=== PATIENT | male | born 1950 | race Caucasian/White ===

== ENCOUNTER 2019-09-06 05:36 | Day surgery (SDC) | payer OTHER, SELFPAY ==
[2019-09-01 14:30] VITALS: BMI 25.0
--- NOTE | 2019-09-01 14:50 | PC.NURSE ---
P t still taking plavix so surgery rescheduled to per Dr Marvin
[2019-09-06] VITALS (8 sets, daily range): BP systolic 87–131; BP diastolic 53–78; PULSE 56–80; RESP 18–26; TEMP 36.2–36.4; O2SAT 95–99
[2019-09-06] MEDS: sodium chloride 0.9% 1,000 ML 30 ML IV (06:34)
--- NOTE | 2019-09-06 06:52 | W.PM.OPSUD ---
Surgery/Procedure H&P Update DATE OF PROCEDURE: September 06, 2019 DATE H&P PERFORMED: 08/22/19 H&P UPDATE INFORMATION: I have reviewed H&P completed within last 30 days, I have examined patient prior to procedure and No changes to prior documentation PREOP DIAGNOSIS: Bilateral inguinal hernia PLANNED PROCEDURE: Operation Date: 09/06/19 07:00 Proposed Procedures p Laparoscopic poss open Inguinal Hernia Repair w/Mesh(Bilateral) - Simone Marvin MD
--- NOTE | 2019-09-06 07:07 | ANES.PREANE2 ---
Pre-Anesthetic Assessment Pre-Anesthetic Assessment: Height/Weight: Height 1.83 m Weight 83.915 kg Temp Pulse Resp BP Pulse Ox 97.3 F L 57 L 18 131/78 97 09/06/19 06:15 09/06/19 06:15 09/06/19 06:15 09/06/19 06:15 09/06/19 06:15 Preop Diagnosis: Bilateral inguinal hernia Proposed Procedure: Operation Date: 09/06/19 07:00 Proposed Procedures p Laparoscopic poss open Inguinal Hernia Repair w/Mesh(Bilateral) - Simone Marvin MD Was Beta Luis taken within 24 hours: N/A Last intake: Intake Last Liquid Date 09/05/19 Last Liquid Time 23:00 Last Solid Date 09/05/19 Last Solid Time 20:00 Social: Social History: Tobacco and No alcohol Exam: Pre-Anes Outpt Exam: alert, oriented x 3, clear to auscultation bilaterally and regular rate & rhythm Airway: Submandibular: WNL Cervical ROM: WNL MP: 2 Dentition: Full Pulmonary: Pulmonary: COPD CV/HEM: CV/HEM: HTN : : None reported Hepatic: Hepatic: None reported GI: GI: None reported Metabolic: Metabolic: None reported Musc/skel: Musc/skel: None reported Neuropsych: Neuropsych: None reported Anesthetic Plan: ASA status: 3 Anesthesia: General Risk of > 500 ml blood loss (7ml/kg in children): No Meds/Allergies Current Medications: Current Medications Generic Name Dose Route Start Last Admin Trade Name Freq PRN Reason Stop Dose Admin Sodium Chloride 1,000 mls @ 30 ml s/hr 09/06/19 06:00 09/06/19 06:34 Sodium Chloride 0.9% IV 09/07/19 05:59 30 mls/hr .Q24H SHELLY Administration PFSH Anesthesia PFSH: Medical History (Updated 08/22/19 @ 17:39 by Simone Marvin MD) Adjustment disorder with depressed mood Anxiety Bilateral inguinal hernia BPH (benign prostatic hyperplasia) Diverticulosis Hypercholesterolemia Hypertension OCD (obsessive compulsive disorder) (~2013) PTSD (post-traumatic stress disorder) Surgical History History of colonoscopy (~2013) diverticulosis Status post surgical removal of malignant neoplasm of skin Social History Smoking and tobacco status: current every day smoker cigarettes Second hand smoke exposure: No Alcohol intake: never Desire information about alcohol rehabilitation?: No Adopted: No Caregiver/support person: Yes Lives independently: Yes Household members: spouse Housing: House Marital status: service: Yes Current occupational status: retired Current occupational exposures/hazards: No Pets and animals: No History of recent travel: No Sexually active: No Current gender identity: Male Meron/Catholic: Rastafari Special meron needs: No Agree to transfusion: No Financial difficulty paying for basics: Decline to Answer Data Anesthesia Cardiac Studies: No Data to Display
--- NOTE | 2019-09-06 07:57 | SUR.OPER ---
0728 - Pt's Dalila notified of surgery start via her cell phone.
--- NOTE | 2019-09-06 08:44 | SUR.PHASEI ---
0843 PATIENT TO PACU AT THIS TIME. RR EVEN AND UNLABORED. PLACED ON SIMPLE MASK, SPO2 98%. INCISION TO ABDOMEN, CDI, SCROTAL SUPPORT IN PLACE.
--- NOTE | 2019-09-06 08:45 | PM.OP ---
Operative Report Date of procedure: September 06, 2019 Pre-op Diagnosis: Bilateral inguinal hernia Post-op Diagnosis: Bilateral direct inguinal hernia Procedure Done: Laparoscopic total extraperitoneal repair of bilateral inguinal hernia Pathology: none sent Surgeon: Simone Marvin Anesthesia: General Estimated blood loss (mL): 10 Condition: stable Disposition: PACU Procedure: The patient was taken to the operating room. After IV antibiotic was administered, the abdomen was prepped and draped in a sterile manner. Using a 15 blade, a 1.0 cm transverse incision was made infraumbilically on the right side. Subcutaneous tissue was divided using electrocautery and the anterior rectus sheath divided using an 11 blade. The rectus muscle was retracted laterally and the extraperitoneal space identified. A balloon dilator was placed to open the preperitoneal space. A 11 mm port was placed and 12 mm of pneumoperitoneum was created. A 10 mm 30? scope was introduced and the retrorectus space was opened using the camera up to the pubic symphysis and 5 mm ports were placed in the midline, one 2-fingerbreadths above the pubic symphysis and the other midway between these two ports under direct visualization. Blunt dissection was carried out to open up the tissue in the midline and to the pubic symphysis, which was identified. The dissection was then carried laterally where the iliopubic tract was identified. There was no femoral or obturator hernia noted. There was a large direct hernia which was reduced. The inferior epigastric artery was identified and dissection was carried posterior to it and laterally, the space was opened up to the level of the umbilicus superior to the anterior superior iliac spine. I then proceeded to dissect out the spermatic cord and the peritoneum was retracted posteriorly up to the iliac vein.. 16 x 10cm Surgimax 3D mesh was rolled and introduced through the 10 mm port and then rolled laterally and apposed well against the abdominal wall to cover the myopectineal orifice completely. I then directed my attention to the left side. The dissection was carried laterally where the iliopubic tract was identified. There was no femoral or obturator hernia noted. There was a small direct hernia which was reduced. The inferior epigastric artery was identified and dissection was carried posterior to it and laterally, the space was opened up to the level of the umbilicus superior to the anterior superior iliac spine. I then proceeded to dissect out the spermatic cord and the peritoneum was retracted posteriorly up to the iliac vein.. 16 x 10cm Surgimax 3D mesh was rolled and introduced through the 10 mm port and then rolled laterally and apposed well against the abdominal wall to cover the myopectineal orifice completely. 10 Cc of 0.5% Marcaine was infiltrated into the preperitoneal space. The extraperitoneal space was desufflated under direct visualization to ensure no slippage of hernial sac under the mesh. All ports were removed, the anterior rectus fascia at the infraumbilical port closed using figure of eight 0 Vicryl sutures, subcutaneous tissue approximated using 3-0 Vicryl sutures and skin at all three port sites were closed using running subcuticular 4-0 Monocryl sutures and Dermabond. 10 mL of 0.5% Marcaine was infiltrated at the port sites. The patient was stable throughout the procedure.
--- NOTE | 2019-09-06 09:06 | SUR.PHASEI ---
0902 PATIENT TO OPS AT THIS TIME. NO DISTRESS. DENIES PAIN. TOLERATING ICE CHIPS. INCISION TO ABDOMEN, CDI. SCROTAL SUPPORT IN PLACE.
== END 2019-09-06 09:53 | disposition home or self-care (01) ==
PROVIDERS: Family Provider Family Medicine Adult Medicine; PCP Emergency Medicine Emergency Medical Services; Visit Provider Surgery
PROC: (CPT 49650; principal; 2019-09-06 07:00)
DX: K40.20 Bilateral inguinal hernia, without obstruction or gangrene, not specified as recurrent (principal); Z79.82 Long term (current) use of aspirin; N40.0 Benign prostatic hyperplasia without lower urinary tract symptoms; I10 Essential (primary) hypertension; Z82.49 Family history of ischemic heart disease and other diseases of the circulatory system; Z83.3 Family history of diabetes mellitus; F17.210 Nicotine dependence, cigarettes, uncomplicated; J44.9 Chronic obstructive pulmonary disease, unspecified
CPT/HCPCS: 49650; 12345; C1781; J0690; J1885; J2001; J2370; J2704; J2710; J3010; J3490; J7030

== ENCOUNTER 2020-02-29 12:30 | Outpatient (CLI) | payer OTHER, SELFPAY ==
--- NOTE | 2020-02-29 13:07 | CT_ITS ---
WS: [id number] CTA THORACIC TECHNIQUE: Contrast enhanced CTA of the thoracic aorta with coronal and sagittal reformatted images a nd maximum intensity projection (MIP) images. CLINICAL INFORMATION: FOLLOW UP THORACIC AORTIC ANEURYSM COMPARISON: None. DLP: 1515.[address] scans at [facility] use at least one of these dose optimization techniques: automat ed exposure control; mA and/or kV adjustment per patient size (includes targeted exams where dose is matched to clinical indication); or iterative reconstruction. FINDINGS: Normal caliber thoracic aorta. Mild aortic arch calcification. Moderate atheromatous disease involvin g the aortic arch. Normal caliber descending thoracic aorta. Normal thyroid gland. No mediastinal or hilar lymphadenopathy. No axillary lymphadenopathy. Normal ca liber descending thoracic aorta. Coronary calcification. Proximal main pulmonary arteries are normal. Lungs are well aerated. No acute pulmonary infiltrates. No suspicious pulmonary parenchymal opacitie s. Cholelithiasis. Adrenal glands are normal. Small right renal cyst. Hypertrophic changes excluded. CT/CT angio chest 67023 IMPRESSION: 1. Normal caliber thoracic aorta. No evidence of thoracic aortic aneurysm. 2. Moderate atheromatous disease involving the thoracic aortic arch. Normal de scending caliber thoracic aorta. 3. No mediastinal or hilar lymphadenopathy. 4. Cholelithiasis.
[2020-02-29 13:36] LABS: Blood Urea Nitrogen 17 mg/dL (8-23); Glomerular Filtration Rate 83.7 mL/min (90-130)
[2020-02-29] MEDS: iohexol 350 mg/mL 100 mL Btl IV (13:50)
== END 2020-02-29 12:31 | disposition home or self-care (01) ==
LOC: RADWPI 12:59
PROVIDERS: Family Provider Family Medicine Adult Medicine; PCP Emergency Medicine Emergency Medical Services; Visit Provider Emergency Medicine Emergency Medical Services
DX: I71.2 Thoracic aortic aneurysm, without rupture (principal); K80.20 Calculus of gallbladder without cholecystitis without obstruction
CPT/HCPCS: 71275; 82565; 84520; Q9967

== ENCOUNTER 2020-03-18 09:55 | Outpatient (CLI) | payer OTHER, SELFPAY ==
--- NOTE | 2020-03-18 10:01 | USCV_ITS ---
Lalo Marr Age: 69 Gender: M : 1950 Exam Date: 03/18/2020 09:56 Ordering Phys: Rd Bianchi MD Technologist: Isabel Avelar [place] [facility] [place]: AAA HISTORY: Diameter (cm) AP x Transverse x Length Velocity (cm/s) Waveform Prox Aorta: 2.33 x 2.64 x 94.70 Mid Aorta: 2.02 x 2.33 x 91.10 Distal Aorta: 4.56 x 4.77 x 81.60 Right Iliac Prox: 1.05 x 1.16 x 180.60 Left Iliac Prox: 0.99 x 0.99 x 127.55 Stent Prox Landing x x Aneurysmal Sac Max x x Lt Lat Sac Dim Rt Lat Sac Dim Stent Dist Landing x x Right Iliac Stent x x Left Iliac Stent x x Right Renal Art Left Renal Art FINDINGS: Mild to moderate heterogeneous plaques in the abdominal aorta. Fusiform aneurysm of the infrarenal aorta measuring 4.56 x 4.77 cm CONCLUSIONS 1. Fusiform aneurysm of the infrarenal aorta measuring 4.56 x 4.77 cm. 2. Mild to moderate diffuse plaques in the abdominal aorta. 3. Normal dimensions of the proximal common iliac arteries bilaterally No previous studies are available for comparison Dr Kelvin Lora MD [facility] (Electronically Signed) Final Date: 18 March 2020 20:06 S
== END 2020-03-18 09:56 | disposition home or self-care (01) ==
PROVIDERS: PCP Emergency Medicine Emergency Medical Services; Visit Provider Internal Medicine Clinical Cardiac Electrophysiology
DX: I71.4 Abdominal aortic aneurysm, without rupture (principal)
CPT/HCPCS: 93978

== ENCOUNTER 2020-05-31 12:31 | Outpatient (CLI) | payer OTHER, SELFPAY ==
--- NOTE | 2020-05-31 13:00 | CT_ITS ---
WS: [id number] CT scan of the abdominal aorta. Additional two-dimensional coronal and sagittal reconstruction was pe rformed. MIP images were also performed. 05/31/2020 Clinical Data: I71.4 - Abdominal aortic aneurysm, without rupture Comparison: CTA of the abdominal aorta DLP: 971.[address] scans at [facility] use at least one of these dose optimization techniques: automat ed exposure control; mA and/or kV adjustment per patient size (includes targeted exams where dose is matched to clinical indication); or iterative reconstruction. Findings: Abdominal aorta: The AP diameter of the abdominal aortic aneurysm is now 4.0 cm which is larger than the measurements 3 years ago. The transverse diameter is 4.0 cm and its length is 7.3 cm There is mural thrombosis in the abdominal aortic aneurysm and there is no contrast extravasation. The renal arteries, celiac maría elena ry, SMA and AMANDA are patent. The common iliac arteries show atheromatous sclerotic change. The branche s of the common iliac arteries are also patent. Abdomen and pelvic findings: The lower lungs show no nodules, masses or effusions. The liver, spleen, adrenal glands and pancreas are normal. There is a gallstone within the gallbladder. The kidneys show bilateral renal cortical cy sts with good contrast function. No renal masses, hydronephrosis or calculi are seen. No abscess, ritesh nopathy, ascites, mass, obstruction or free air is seen. The stomach, small bowel and colon show no a bnormalities. No appendicitis or diverticulitis is present. There are numerous sigmoid diverticula. T he bladder is not full and the wall appears thickened because of this. The prostate is enlarged. No i nguinal hernia is seen. 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 CT/CT angio abdomen pelvis [id number] Impression: 1. Enlargement of abdominal aortic aneurysm to 4 cm in AP and transverse diamet er. 2. No evidence of contrast extravasation from the aneurysm. 3. Negative for acute intra-abdominal or pelvic abnormalities.
[2020-05-31 13:17] LABS: Blood Urea Nitrogen 15 mg/dL (8-23); Glomerular Filtration Rate 83.7 mL/min (90-130)
[2020-05-31] MEDS: iohexol 350 mg/mL 100 mL Btl IV (13:29)
== END 2020-05-31 12:32 | disposition home or self-care (01) ==
LOC: RADWPI 12:34
PROVIDERS: PCP Emergency Medicine Emergency Medical Services; Visit Provider Thoracic Surgery (Cardiothoracic Vascular Surgery)
DX: I71.4 Abdominal aortic aneurysm, without rupture (principal)
CPT/HCPCS: 74174; 82565; 84520; Q9967

== ENCOUNTER 2020-07-18 09:25 | Emergency (ER) | payer OTHER, SELFPAY ==
[2020-07-18 09:33] VITALS: BP 146/90; PULSE 75; RESP 18; TEMP 36.3; O2SAT 96; BMI 24.0
[2020-07-18 09:40] VITALS: BP 146/90; PULSE 81; RESP 17; O2SAT 96
--- NOTE | 2020-07-18 09:53 | ED_ITS ---
HPI - Psych General: Chief Complaint: Psychiatric Symptoms Stated Complaint: delusional, sent over from ID Time Seen by Provider: 07/18/20 09:34 History of Present Illness: HPI Narrative: Patient is a 70-year-old male who comes to the ED with psychiatric symptoms. Past medical history of PTSD. Patient has a past medical history of a AAA and is currently being set up for a elective endovascular surgical repair in the next couple weeks. He was taking [facility]. Patient's is in the room as well and helping provide history. Patient has been very paranoid and acting delusional over the past several days. He has had episodes like this in the past. He keeps thinking be [employer] is coming to get him or as blocking his phone. He also will find receipts around the house then thinks that the [employer] are going to close his accounts and take his money and repossess his house. is in the room and says they have their house paid off and nobody cares are out to get them or collect money from them. also says that patient has not been sleeping at night and she will wake up finding him going through old papers and receipts. said that patient is adamant to go by the bank today to check on accounts and to make sure they are not going to take his home. reiterated to me that they are not in any financial trouble whatsoever and that this is purely delusion. expressed that she would like patient not to be admitted and would like him to come home so she can continue taking care of him but is hoping maybe antipsych med could help with his current condition. Associated symptoms: Reports delusions; Deny homicidal ideation or suicidal ideation Review of Systems Const: Denies: fever(s), chills or fatigue Eyes: Denies: change in vision or eye discomfort ENMT: Denies: throat pain, odynophagia, nasal discharge or nasal congestion Card: Denies: chest pain, palpitations, edema, swelling of feet/ankles, dyspnea on exertion or orthopnea Resp: Denies: dyspnea, productive cough or non-productive cough GI: Denies: abdominal pain, nausea, vomiting, diarrhea, constipation or hematochezia : Denies: flank pain, difficulty urinating, dysuria or hematuria Musc: Denies: neck pain, back pain or extremity swelling Skin/Breast: Denies: rash or new lesions Neuro: Denies: headache(s), numbness in extremities or weakness in extremities Psych: Reports: paranoia (Paranoid and delusional); Denies: suicidal ideation or homicidal ideation PFSH ED PFSH: Medical History AAA (abdominal aortic aneurysm) Adjustment disorder with depressed mood Anxiety BPH (benign prostatic hyperplasia) Diverticulosis Hypercholesterolemia Hypertension OCD (obsessive compulsive disorder) (~2013) PTSD (post-traumatic stress disorder) Surgical History History of colonoscopy (~2013) diverticulosis S/P bilateral inguinal hernia repair Status post surgical removal of malignant neoplasm of skin Family History Family/Other Cancer brother- colon cancer Hypertension brother Mother Cancer colon cancer Father Diabetes Denies family history of Anesthesia complication Bleeding disorder Social History Smoking and tobacco status: current every day smoker cigarettes Packs smoked per day: 0.5 Years cigarettes smoked: 50 Second hand smoke exposure: No Alcohol intake: never Desire information about alcohol rehabilitation?: No Adopted: No Caregiver/support person: Yes Lives independently: Yes Household members: spouse Housing: House Marital status: service: Yes branch: [employer] Current occupational status: retired Current occupational exposures/hazards: No Pets and animals: No History of recent travel: No Sexually active: No Current gender identity: Male Meron/Alevism: Oriental Orthodox Special meron needs: No Agree to transfusion: No Financial difficulty paying for basics: Decline to Answer Physical Exam Const: COMMON NORMALS: no acute distress, patient oriented x3, healthy appearing and alert GENERAL APPEARANCE: cooperative and comfortable HENMT: COMMON NORMALS: normocephalic HEAD & SCALP: normocephalic MOUTH: Normal oral and palatal mucosa present THROAT: posterior oropharynx normal and uvula midline Neck/C-Spine: COMMON NORMALS: supple GENERAL: Yes normal visual inspection Resp: COMMON NORMALS: normal respiratory effort, No retractions, No use of accessory muscles and clear to auscultation bilaterally AUSCULTATION: clear to auscultation bilaterally Cardio: COMMON NORMALS: regular rate, regular rhythm, S1 normal heart sound present, S2 normal heart sound present, No gallops present (Cardio), No clicks present (Cardio), No murmurs present (Cardio) and Peripheral pulses 2+ throughout RATE: regular rate RHYTHM: regular rhythm HEART SOUNDS: S1 normal heart sound present and S2 normal heart sound present PERIPHERAL PULSES: Peripheral pulses 2+ throughout GI: COMMON NORMALS: Normal to inspection, nondistended, normoactive bowel sounds present, Soft to palpation, non-tender and no masses PALPATION: Yes Soft to palpation : COMMON NORMALS: Yes no CVA tenderness BLADDER/KIDNEY EXAM: Yes no CVA tenderness Back/Pelvis: COMMON NORMALS: no CVA tenderness Neuro: COMMON NORMALS: patient oriented x3 and moves all extremities SENSORIUM/ORIENTATION: Yes alert Psych: APPEARANCE: Yes grossly normal ATTITUDE: Yes calm ACTIVITY/MOTOR BEHAVIOR: Yes appropriate eye contact MOOD & AFFECT: Yes anxious (Appears a little anxious and is worried about getting bank repossessed in h) THOUGHT PROCESS: Illogical thought process present (Patient thinks that the [employer] was blocking his phone calls) THOUGHT CONTENT: No Suicidality present, No Homicidality present and Yes delusions Delusional thought content details: paranoid (Government blocking phone calls and bank going to repossess house) ATTENTION/CONCENTRATION: Yes attention grossly intact and Yes concentration grossly intact MEMORY/COGNITION: Yes memory grossly intact and Yes cognition grossly intact INSIGHT: Fair insight present (Psych) JUDGEMENT: Fair judgement present (Psych) Skin: GENERAL SKIN EXAM: dry skin MDM - Psych MDM Narrative: Medical decision making narrative: Patient is a 70-year-old male who comes to the ED with delusions. He lives at home with his and she helps take care of him. He currently is not on any psych meds. I contacted Dr. Mercado and had him come down here to the ED to evaluate patient to determine patient care plan. Dr. Mercado performed psych eval here in the ED and determined that he is safe to be discharged home. He wanted me to put patient on a prescription for risperidone twice daily and Remeron daily dose at night. Patient was discharged according to Dr. Mercado's recommendation and sent home with the recommended prescriptions. Follow-up with PCP 7 to 10 days. Return to ED precautions given. Patient and patient's understood and agreed with plan. Lab Data: Labs: Lab Results 07/18/20 07/18/20 Range/Units 09:40 09:40 WBC Cancelled Corrected WBC Cancelled RBC Cancelled Hgb Cancelled Hct Cancelled MCV Cancelled MCH Cancelled MCHC Cancelled RDW Cancelled Plt Count Cancelled MPV Cancelled Gran % Cancelled Neut % (Auto) Cancelled Lymph % (Auto) Cancelled Eagle % (Auto) Cancelled Eos % (Auto) Cancelled Baso % (Auto) Cancelled Neut # (Auto) Cancelled Lymph # (Auto) Cancelled Eagle # (Auto) Cancelled Eos # (Auto) Cancelled Baso # (Auto) Cancelled Absolute Gran (aut o) Cancelled Nucleated RBC % (a uto) Cancelled Nucleated RBCs # Cancelled Sodium Cancelled Potassium Cancelled Chloride Cancelled Carbon Dioxide Cancelled Anion Gap Cancelled BUN Cancelled Creatinine Cancelled GFR Calculation Cancelled Glucose Cancelled Calculated Osmolal ity Cancelled Calcium Cancelled Total Bilirubin Cancelled AST Cancelled ALT Cancelled Alkaline Phosphata se Cancelled Total Protein Cancelled Albumin Cancelled Globulin Cancelled Salicylates Cancelled Acetaminophen Cancelled Ethyl Alcohol Cancelled Discharge Plan Discharge Patient Disposition: Home Clinical Impression: Delusional disorder Condition: Stable Prescriptions: New risperidone 0.25 mg tablet 0.25 mg PO BID 30 Days Qty: 60 RF: 0 Remeron 15 mg tablet 7.5 mg PO DAILY Qty: 30 RF: 0 No Action potassium chloride 20 mEq tablet extended release 20 meq PO DAILY RF: 0 hydrochlorothiazide 25 mg tablet 25 mg PO DAILY RF: 0 aspirin 81 mg tablet,delayed release (DR/EC) 81 mg PO DAILY RF: 0 Easy Fiber 3 gram/3.5 gram powder 2 tsp PO TID RF: 0 pravastatin 80 mg tablet 40 mg PO DAILY RF: 0 cilostazol 100 mg tablet 100 mg PO DAILY RF: 0 cholecalciferol (vitamin D3) 50 mcg (2,000 unit) capsule 2,000 unit PO DAILY RF: 0 omega-3 fatty acids 500 mg capsule 500 mg PO DAILY RF: 0 tamsulosin 0.4 mg capsule 0.4 mg PO DAILY RF: 0 Colace 100 mg capsule 100 mg PO BID Qty: 30 RF: 0 Discharge Orders: Discharge ED (Routine); Ordered 07/18/20 Ordered By: Je Rod Referrals: Troutdale,Olaf D, DO [Primary Care Provider] - Discharge Diet: Regular Discharge Activity: Resume usual activity Activity Restrictions/Additional Instructions: Follow-up with medical provider as directed in 5-7 days for reevaluation. Go get prescriptions filled today and start taking medications as prescribed. Return to the ER or your medical provider if condition worsens. Please read and understand discharge instructions. If any questions, please ask. Coding Level of Care Code ED Embedded Software Manager for Silvino Fwd Exam Comprehensive
[2020-07-18 10:38] VITALS: BP 141/78; PULSE 75; RESP 18; O2SAT 98
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
[2020-07-18 11:10] VITALS: BP 157/89; PULSE 77; RESP 18; O2SAT 95
== END 2020-07-18 11:10 | disposition home or self-care (01) ==
PROVIDERS: Emergency Provider Physician Assistant; PCP Emergency Medicine Emergency Medical Services
DX: F22 Delusional disorders (principal); Z79.82 Long term (current) use of aspirin; I10 Essential (primary) hypertension; F17.210 Nicotine dependence, cigarettes, uncomplicated
CPT/HCPCS: 12345; 85025; 99284

== ENCOUNTER 2020-07-19 15:56 | Inpatient (IN) | payer OTHER, MEDICARE, SELFPAY ==
[2020-07-19 16:09] VITALS: BP 170/104; PULSE 98; RESP 18; TEMP 36.4; O2SAT 98; BMI 25.0
--- NOTE | 2020-07-19 16:56 | ED_ITS ---
Documented by User: JUAN PABLO Anders 07/20/20 07:09 HPI - Psych General: Chief Complaint: Recheck/Abnormal Lab/Rx Stated Complaint: mhe Time Seen by Provider: 07/19/20 17:24 Source: patient and family Mode of arrival: ambulatory Limitations: no limitations History of Present Illness: HPI Narrative: Patient is a 70-year-old male who presents to ED today along with his for actions related to patient's PTSD/delusions/paranoia. Patient was seen here yesterday and had full psychiatric evaluation by Dr. Mercado. Please refer to his specific note for that evaluation. tells me that today he found a set of truck keys and eloped from their residence and drove to an insurance agency where he stated he was being followed, spied on, and felt they were creating insurance fraud. Associated symptoms: Deny homicidal ideation or suicidal ideation Review of Systems Const: Denies: fever(s), chills or body aches Card: Denies: chest pain Resp: Denies: dyspnea GI: Denies: abdominal pain Musc: Denies: neck pain or back pain Skin/Breast: Denies: rash Neuro: Denies: headache(s) Psych: Reports: anxiety and paranoia; Denies: suicidal ideation or homicidal ideation PFS ED PFSH: Medical History AAA (abdominal aortic aneurysm) Adjustment disorder with depressed mood Anxiety BPH (benign prostatic hyperplasia) Diverticulosis Hypercholesterolemia Hypertension OCD (obsessive compulsive disorder) (~2013) PTSD (post-traumatic stress disorder) Surgical History History of colonoscopy (~2013) diverticulosis S/P bilateral inguinal hernia repair Status post surgical removal of malignant neoplasm of skin Family History Family/Other Cancer brother- colon cancer Hypertension brother Mother Cancer colon cancer Father Diabetes Denies family history of Anesthesia complication Bleeding disorder Social History Smoking and tobacco status: current every day smoker cigarettes Packs smoked per day: 0.5 Years cigarettes smoked: 50 Second hand smoke exposure: No Alcohol intake: never Desire information about alcohol rehabilitation?: No Adopted: No Caregiver/support person: Yes Lives independently: Yes Household members: spouse Housing: House Marital status: service: Yes branch: [employer] Current occupational status: retired Current occupational exposures/hazards: No Pets and animals: No History of recent travel: No Sexually active: No Current gender identity: Male Meron/Presybeterian: Mormonism Special meron needs: No Agree to transfusion: No Financial difficulty paying for basics: Decline to Answer Physical Exam Const: COMMON NORMALS: no acute distress, patient oriented x3, no limitations and alert GENERAL APPEARANCE: cooperative ORIENTATION/CONSCIOUSNESS: Yes awake, Yes oriented to person, Yes oriented to place and Yes oriented to time Resp: COMMON NORMALS: normal respiratory effort and clear to auscultation bilaterally AUSCULTATION: clear to auscultation bilaterally Cardio: COMMON NORMALS: regular rate and regular rhythm RATE: regular rate RHYTHM: regular rhythm Neuro: COMMON NORMALS: patient oriented x3 SENSORIUM/ORIENTATION: Yes alert, Yes oriented to person, Yes oriented to place and Yes oriented to time Psych: COMMON NORMALS: mental status grossly normal, cooperative, denies homicidal ideation and denies suicidal ideation APPEARANCE: Yes grossly normal ATTITUDE: Yes calm ACTIVITY/MOTOR BEHAVIOR: Yes Avoids eye contact (attititude/behavior) SPEECH: Yes slow MOOD & AFFECT: Yes Flat affect present ATTENTION/CONCENTRATION: Yes attention grossly intact and Yes concentration grossly intact MEMORY/COGNITION: Yes memory grossly intact MDM - Psych MDM Narrative: Medical decision making narrative: I saw patient near the end of my shift. I have spoken to Dr. Mercado regarding patient psychotic features. He feels like patient would benefit from [facility]-psych hospitalization. All labs are still pending. Will go ahead and sign patient out to Dr. Holliday. Lab Data: Labs: Lab Results 07/19/20 07/19/20 07/19/20 Range/Units 17:05 17:05 17:25 WBC 12.5 H (4.0-10.0) 10^3/ uL RBC 5.61 H (4.1-5.3) 10^6/u L Hgb 16.2 (11.7-16.6) g/dL Hct 48.6 (42.0-52.0) % MCV 86.6 (80-94) fL MCH 28.9 (28.0-34.0) pg MCHC 33.3 (30.0-36.0) g/dL RDW 14.1 (12.1-15.1) % Plt Count 316 (130-400) 10^3/c mm MPV 8.7 (7.4-10.4) fL Neut % (Auto) 62.6 % Lymph % (Auto) 25.5 % Nuckolls % (Auto) 9.3 % Eos % (Auto) 1.6 % Baso % (Auto) 0.7 % Neut # (Auto) 7.80 H (1.8-7.7) 10^3/u L Lymph # (Auto) 3.2 (0.8-4.8) 10^3/u L Nuckolls # (Auto) 1.2 H (0.2-0.9) 10^3/u L Eos # (Auto) 0.2 (0.0-0.8) 10^3/u L Baso # (Auto) 0.1 (0.0-0.1) 10^3/u L Nucleated RBC % (a uto) 0 % Nucleated RBCs # 0.0 /100WBC Sodium 142 (136-145) mmol/L Potassium 3.2 L (3.5-5.1) mmol/L Chloride 101 (98-107) mmol/L Carbon Dioxide 31 H (22-29) mmol/L Anion Gap 13.2 (5-19) BUN 16 (8-23) mg/dL Creatinine 1.0 (0.7-1.2) mg/dL GFR Calculation 73.9 L (90-130) mL/min Glucose 123 H (65-115) mg/dL Calculated Osmolal ity 297 H (285-295) mOsm/k g Lactic Acid (0.5-2.2) mmol/L Calcium 9.8 (8.5-10.5) mg/dL Total Bilirubin 0.3 (0.15-1.2) mg/dL AST 18 (0-40) U/L ALT 17 (0-41) U/L Alkaline Phosphata se 93 (40-130) IU/L Troponin T Baselin e (0-15) ng/L Total Protein 6.8 (6.6-8.7) g/dL Albumin 3.9 (3.5-5.2) g/dL Globulin 2.9 (1.3-4.6) g/dL TSH 1.35 (0.27-4.20) uIU/ mL Urine Color (Yellow) Urine Appearance (CLEAR) Urine pH (5-7) Ur Specific Gravit y (1.005-1.030) Urine Protein (Negative) Urine Glucose (UA) (Normal) Urine Ketones (Negative) Urine Blood (Negative) Urine Nitrate (Negative) Urine Bilirubin (Negative) Urine Urobilinogen (Negative) mg/dL Ur Leukocyte Lata ase (Negative) Urine RBC (0-2) /hpf Urine WBC (0-5) /hpf Ur Squamous Epith Cells (0-5) /hpf Amorphous Sediment Urine Bacteria (NONE) /hpf Salicylates < 0.3 L (3-10) mg/dL Urine Opiates Scre en Negative (Negative) ng/mL Acetaminophen < 5.0 L (10-30) ug/mL Ur Barbiturates Sc reen Negative (Negative) ng/mL Ur Phencyclidine S crn Negative (Negative) ng/mL Ur Amphetamines Sc reen Negative (Negative) ng/mL U Benzodiazepines Scrn Negative (Negative) ng/mL Urine Cocaine Scre en Negative (Negative) ng/mL U Marijuana (THC) Screen Negative (Negative) ng/mL Ethyl Alcohol < 10 (0-10) mg/dL SARS-CoV-2 Ag (Rap id) (Negative) 07/19/20 07/19/20 07/20/20 Range/Units 17:37 22:30 00:58 WBC (4.0-10.0) 10^3/ uL RBC (4.1-5.3) 10^6/u L Hgb (11.7-16.6) g/dL Hct (42.0-52.0) % MCV (80-94) fL MCH (28.0-34.0) pg MCHC (30.0-36.0) g/dL RDW (12.1-15.1) % Plt Count (130-400) 10^3/c mm MPV (7.4-10.4) fL Neut % (Auto) % Lymph % (Auto) % Nuckolls % (Auto) % Eos % (Auto) % Baso % (Auto) % Neut # (Auto) (1.8-7.7) 10^3/u L Lymph # (Auto) (0.8-4.8) 10^3/u L Nuckolls # (Auto) (0.2-0.9) 10^3/u L Eos # (Auto) (0.0-0.8) 10^3/u L Baso # (Auto) (0.0-0.1) 10^3/u L Nucleated RBC % (a uto) % Nucleated RBCs # /100WBC Sodium (136-145) mmol/L Potassium (3.5-5.1) mmol/L Chloride (98-107) mmol/L Carbon Dioxide (22-29) mmol/L Anion Gap (5-19) BUN (8-23) mg/dL Creatinine (0.7-1.2) mg/dL GFR Calculation (90-130) mL/min Glucose (65-115) mg/dL Calculated Osmolal ity (285-295) mOsm/k g Lactic Acid 1.1 (0.5-2.2) mmol/L Calcium (8.5-10.5) mg/dL Total Bilirubin (0.15-1.2) mg/dL AST (0-40) U/L ALT (0-41) U/L Alkaline Phosphata se (40-130) IU/L Troponin T Baselin e (0-15) ng/L Total Protein (6.6-8.7) g/dL Albumin (3.5-5.2) g/dL Globulin (1.3-4.6) g/dL TSH (0.27-4.20) uIU/ mL Urine Color Yellow (Yellow) Urine Appearance Clear (CLEAR) Urine pH 7 (5-7) Ur Specific Gravit y 1.010 (1.005-1.030) Urine Protein Neg (Negative) Urine Glucose (UA) Norm (Normal) Urine Ketones Negative (Negative) Urine Blood Trace H (Negative) Urine Nitrate Negative (Negative) Urine Bilirubin Neg (Negative) Urine Urobilinogen Norm (Negative) mg/dL Ur Leukocyte Lata ase Negative (Negative) Urine RBC 5-10 H (0-2) /hpf Urine WBC 0-4 H (0-5) /hpf Ur Squamous Epith Cells 0-4 H (0-5) /hpf Amorphous Sediment Not Reportable Urine Bacteria Trace (NONE) /hpf Salicylates (3-10) mg/dL Urine Opiates Scre en (Negative) ng/mL Acetaminophen (10-30) ug/mL Ur Barbiturates Sc reen (Negative) ng/mL Ur Phencyclidine S crn (Negative) ng/mL Ur Amphetamines Sc reen (Negative) ng/mL U Benzodiazepines Scrn (Negative) ng/mL Urine Cocaine Scre en (Negative) ng/mL U Marijuana (THC) Screen (Negative) ng/mL Ethyl Alcohol (0-10) mg/dL SARS-CoV-2 Ag (Rap id) Negative (Negative) 07/20/20 Range/Units 00:58 WBC (4.0-10.0) 10^3/ uL RBC (4.1-5.3) 10^6/u L Hgb (11.7-16.6) g/dL Hct (42.0-52.0) % MCV (80-94) fL MCH (28.0-34.0) pg MCHC (30.0-36.0) g/dL RDW (12.1-15.1) % Plt Count (130-400) 10^3/c mm MPV (7.4-10.4) fL Neut % (Auto) % Lymph % (Auto) % Nuckolls % (Auto) % Eos % (Auto) % Baso % (Auto) % Neut # (Auto) (1.8-7.7) 10^3/u L Lymph # (Auto) (0.8-4.8) 10^3/u L Nuckolls # (Auto) (0.2-0.9) 10^3/u L Eos # (Auto) (0.0-0.8) 10^3/u L Baso # (Auto) (0.0-0.1) 10^3/u L Nucleated RBC % (a uto) % Nucleated RBCs # /100WBC Sodium (136-145) mmol/L Potassium (3.5-5.1) mmol/L Chloride (98-107) mmol/L Carbon Dioxide (22-29) mmol/L Anion Gap (5-19) BUN (8-23) mg/dL Creatinine (0.7-1.2) mg/dL GFR Calculation (90-130) mL/min Glucose (65-115) mg/dL Calculated Osmolal ity (285-295) mOsm/k g Lactic Acid (0.5-2.2) mmol/L Calcium (8.5-10.5) mg/dL Total Bilirubin (0.15-1.2) mg/dL AST (0-40) U/L ALT (0-41) U/L Alkaline Phosphata se (40-130) IU/L Troponin T Baselin e 40 H (0-15) ng/L Total Protein (6.6-8.7) g/dL Albumin (3.5-5.2) g/dL Globulin (1.3-4.6) g/dL TSH (0.27-4.20) uIU/ mL Urine Color (Yellow) Urine Appearance (CLEAR) Urine pH (5-7) Ur Specific Gravit y (1.005-1.030) Urine Protein (Negative) Urine Glucose (UA) (Normal) Urine Ketones (Negative) Urine Blood (Negative) Urine Nitrate (Negative) Urine Bilirubin (Negative) Urine Urobilinogen (Negative) mg/dL Ur Leukocyte Lata ase (Negative) Urine RBC (0-2) /hpf Urine WBC (0-5) /hpf Ur Squamous Epith Cells (0-5) /hpf Amorphous Sediment Urine Bacteria (NONE) /hpf Salicylates (3-10) mg/dL Urine Opiates Scre en (Negative) ng/mL Acetaminophen (10-30) ug/mL Ur Barbiturates Sc reen (Negative) ng/mL Ur Phencyclidine S crn (Negative) ng/mL Ur Amphetamines Sc reen (Negative) ng/mL U Benzodiazepines Scrn (Negative) ng/mL Urine Cocaine Scre en (Negative) ng/mL U Marijuana (THC) Screen (Negative) ng/mL Ethyl Alcohol (0-10) mg/dL SARS-CoV-2 Ag (Rap id) (Negative) Discharge Plan Discharge Patient Disposition: Admitted As Inpatient Admit Provider: Camelia Ruiz Clinical Impression: Hallucination, Tachycardia, Hypertension Condition: Stable Sign Out Sign Out Data: Patient Sign Out occurred on 07/19/20 at 17:24. Patient's care was discussed, and care was transferred from to Mara Holliday MD, [facility] [place] Coding Level of Care Code ED Senior Technical Business Analyst for g Fwd Exam Expanded Problem Focused Documented by User: Sandi Martínez MD 07/20/20 01:59 HPI - Psych General: Chief Complaint: Recheck/Abnormal Lab/Rx Stated Complaint: mhe Time Seen by Provider: 07/19/20 17:24 PFSH ED PFSH: Medical History AAA (abdominal aortic aneurysm) Adjustment disorder with depressed mood Anxiety BPH (benign prostatic hyperplasia) Diverticulosis Hypercholesterolemia Hypertension OCD (obsessive compulsive disorder) (~2013) PTSD (post-traumatic stress disorder) Surgical History History of colonoscopy (~2013) diverticulosis S/P bilateral inguinal hernia repair Status post surgical removal of malignant neoplasm of skin Family History Family/Other Cancer brother- colon cancer Hypertension brother Mother Cancer colon cancer Father Diabetes Denies family history of Anesthesia complication Bleeding disorder Social History Smoking and tobacco status: current every day smoker cigarettes Packs smoked per day: 0.5 Years cigarettes smoked: 50 Second hand smoke exposure: No Alcohol intake: never Desire information about alcohol rehabilitation?: No Adopted: No Caregiver/support person: Yes Lives independently: Yes Household members: spouse Housing: House Marital status: service: Yes branch: [employer] Current occupational status: retired Current occupational exposures/hazards: No Pets and animals: No History of recent travel: No Sexually active: No Current gender identity: Male Meron/Presybeterian: Mormonism Special meron needs: No Agree to transfusion: No Financial difficulty paying for basics: Decline to Answer MDM - Psych MDM Narrative: Medical decision making narrative: I took patient over from Dr. Holliday. He was planning on transferring for geriatric psych. Patient has been tachycardic here with heart rate in the 1 teens had an elevated troponin. I spoke to , Who had already seen patient and will admit. He does have hallucinations and will need psychiatric care as well. Do not feel he is stable medically to go to a geriatric psychiatric facility at this time. Lab Data: Labs: Lab Results 07/19/20 07/19/20 07/19/20 Range/Units 17:05 17:05 17:25 WBC 12.5 H (4.0-10.0) 10^3/ uL RBC 5.61 H (4.1-5.3) 10^6/u L Hgb 16.2 (11.7-16.6) g/dL Hct 48.6 (42.0-52.0) % MCV 86.6 (80-94) fL MCH 28.9 (28.0-34.0) pg MCHC 33.3 (30.0-36.0) g/dL RDW 14.1 (12.1-15.1) % Plt Count 316 (130-400) 10^3/c mm MPV 8.7 (7.4-10.4) fL Neut % (Auto) 62.6 % Lymph % (Auto) 25.5 % Nuckolls % (Auto) 9.3 % Eos % (Auto) 1.6 % Baso % (Auto) 0.7 % Neut # (Auto) 7.80 H (1.8-7.7) 10^3/u L Lymph # (Auto) 3.2 (0.8-4.8) 10^3/u L Nuckolls # (Auto) 1.2 H (0.2-0.9) 10^3/u L Eos # (Auto) 0.2 (0.0-0.8) 10^3/u L Baso # (Auto) 0.1 (0.0-0.1) 10^3/u L Nucleated RBC % (a uto) 0 % Nucleated RBCs # 0.0 /100WBC Sodium 142 (136-145) mmol/L Potassium 3.2 L (3.5-5.1) mmol/L Chloride 101 (98-107) mmol/L Carbon Dioxide 31 H (22-29) mmol/L Anion Gap 13.2 (5-19) BUN 16 (8-23) mg/dL Creatinine 1.0 (0.7-1.2) mg/dL GFR Calculation 73.9 L (90-130) mL/min Glucose 123 H (65-115) mg/dL Calculated Osmolal ity 297 H (285-295) mOsm/k g Lactic Acid (0.5-2.2) mmol/L Calcium 9.8 (8.5-10.5) mg/dL Total Bilirubin 0.3 (0.15-1.2) mg/dL AST 18 (0-40) U/L ALT 17 (0-41) U/L Alkaline Phosphata se 93 (40-130) IU/L Troponin T Baselin e (0-15) ng/L Total Protein 6.8 (6.6-8.7) g/dL Albumin 3.9 (3.5-5.2) g/dL Globulin 2.9 (1.3-4.6) g/dL TSH 1.35 (0.27-4.20) uIU/ mL Urine Color (Yellow) Urine Appearance (CLEAR) Urine pH (5-7) Ur Specific Gravit y (1.005-1.030) Urine Protein (Negative) Urine Glucose (UA) (Normal) Urine Ketones (Negative) Urine Blood (Negative) Urine Nitrate (Negative) Urine Bilirubin (Negative) Urine Urobilinogen (Negative) mg/dL Ur Leukocyte Lata ase (Negative) Urine RBC (0-2) /hpf Urine WBC (0-5) /hpf Ur Squamous Epith Cells (0-5) /hpf Amorphous Sediment Urine Bacteria (NONE) /hpf Salicylates < 0.3 L (3-10) mg/dL Urine Opiates Scre en Negative (Negative) ng/mL Acetaminophen < 5.0 L (10-30) ug/mL Ur Barbiturates Sc reen Negative (Negative) ng/mL Ur Phencyclidine S crn Negative (Negative) ng/mL Ur Amphetamines Sc reen Negative (Negative) ng/mL U Benzodiazepines Scrn Negative (Negative) ng/mL Urine Cocaine Scre en Negative (Negative) ng/mL U Marijuana (THC) Screen Negative (Negative) ng/mL Ethyl Alcohol < 10 (0-10) mg/dL SARS-CoV-2 Ag (Rap id) (Negative) 07/19/20 07/19/20 07/20/20 Range/Units 17:37 22:30 00:58 WBC (4.0-10.0) 10^3/ uL RBC (4.1-5.3) 10^6/u L Hgb (11.7-16.6) g/dL Hct (42.0-52.0) % MCV (80-94) fL MCH (28.0-34.0) pg MCHC (30.0-36.0) g/dL RDW (12.1-15.1) % Plt Count (130-400) 10^3/c mm MPV (7.4-10.4) fL Neut % (Auto) % Lymph % (Auto) % Nuckolls % (Auto) % Eos % (Auto) % Baso % (Auto) % Neut # (Auto) (1.8-7.7) 10^3/u L Lymph # (Auto) (0.8-4.8) 10^3/u L Nuckolls # (Auto) (0.2-0.9) 10^3/u L Eos # (Auto) (0.0-0.8) 10^3/u L Baso # (Auto) (0.0-0.1) 10^3/u L Nucleated RBC % (a uto) % Nucleated RBCs # /100WBC Sodium (136-145) mmol/L Potassium (3.5-5.1) mmol/L Chloride (98-107) mmol/L Carbon Dioxide (22-29) mmol/L Anion Gap (5-19) BUN (8-23) mg/dL Creatinine (0.7-1.2) mg/dL GFR Calculation (90-130) mL/min Glucose (65-115) mg/dL Calculated Osmolal ity (285-295) mOsm/k g Lactic Acid 1.1 (0.5-2.2) mmol/L Calcium (8.5-10.5) mg/dL Total Bilirubin (0.15-1.2) mg/dL AST (0-40) U/L ALT (0-41) U/L Alkaline Phosphata se (40-130) IU/L Troponin T Baselin e (0-15) ng/L Total Protein (6.6-8.7) g/dL Albumin (3.5-5.2) g/dL Globulin (1.3-4.6) g/dL TSH (0.27-4.20) uIU/ mL Urine Color Yellow (Yellow) Urine Appearance Clear (CLEAR) Urine pH 7 (5-7) Ur Specific Gravit y 1.010 (1.005-1.030) Urine Protein Neg (Negative) Urine Glucose (UA) Norm (Normal) Urine Ketones Negative (Negative) Urine Blood Trace H (Negative) Urine Nitrate Negative (Negative) Urine Bilirubin Neg (Negative) Urine Urobilinogen Norm (Negative) mg/dL Ur Leukocyte Lata ase Negative (Negative) Urine RBC 5-10 H (0-2) /hpf Urine WBC 0-4 H (0-5) /hpf Ur Squamous Epith Cells 0-4 H (0-5) /hpf Amorphous Sediment Not Reportable Urine Bacteria Trace (NONE) /hpf Salicylates (3-10) mg/dL Urine Opiates Scre en (Negative) ng/mL Acetaminophen (10-30) ug/mL Ur Barbiturates Sc reen (Negative) ng/mL Ur Phencyclidine S crn (Negative) ng/mL Ur Amphetamines Sc reen (Negative) ng/mL U Benzodiazepines Scrn (Negative) ng/mL Urine Cocaine Scre en (Negative) ng/mL U Marijuana (THC) Screen (Negative) ng/mL Ethyl Alcohol (0-10) mg/dL SARS-CoV-2 Ag (Rap id) Negative (Negative) 07/20/20 Range/Units 00:58 WBC (4.0-10.0) 10^3/ uL RBC (4.1-5.3) 10^6/u L Hgb (11.7-16.6) g/dL Hct (42.0-52.0) % MCV (80-94) fL MCH (28.0-34.0) pg MCHC (30.0-36.0) g/dL RDW (12.1-15.1) % Plt Count (130-400) 10^3/c mm MPV (7.4-10.4) fL Neut % (Auto) % Lymph % (Auto) % Nuckolls % (Auto) % Eos % (Auto) % Baso % (Auto) % Neut # (Auto) (1.8-7.7) 10^3/u L Lymph # (Auto) (0.8-4.8) 10^3/u L Nuckolls # (Auto) (0.2-0.9) 10^3/u L Eos # (Auto) (0.0-0.8) 10^3/u L Baso # (Auto) (0.0-0.1) 10^3/u L Nucleated RBC % (a uto) % Nucleated RBCs # /100WBC Sodium (136-145) mmol/L Potassium (3.5-5.1) mmol/L Chloride (98-107) mmol/L Carbon Dioxide (22-29) mmol/L Anion Gap (5-19) BUN (8-23) mg/dL Creatinine (0.7-1.2) mg/dL GFR Calculation (90-130) mL/min Glucose (65-115) mg/dL Calculated Osmolal ity (285-295) mOsm/k g Lactic Acid (0.5-2.2) mmol/L Calcium (8.5-10.5) mg/dL Total Bilirubin (0.15-1.2) mg/dL AST (0-40) U/L ALT (0-41) U/L Alkaline Phosphata se (40-130) IU/L Troponin T Baselin e 40 H (0-15) ng/L Total Protein (6.6-8.7) g/dL Albumin (3.5-5.2) g/dL Globulin (1.3-4.6) g/dL TSH (0.27-4.20) uIU/ mL Urine Color (Yellow) Urine Appearance (CLEAR) Urine pH (5-7) Ur Specific Gravit y (1.005-1.030) Urine Protein (Negative) Urine Glucose (UA) (Normal) Urine Ketones (Negative) Urine Blood (Negative) Urine Nitrate (Negative) Urine Bilirubin (Negative) Urine Urobilinogen (Negative) mg/dL Ur Leukocyte Lata ase (Negative) Urine RBC (0-2) /hpf Urine WBC (0-5) /hpf Ur Squamous Epith Cells (0-5) /hpf Amorphous Sediment Urine Bacteria (NONE) /hpf Salicylates (3-10) mg/dL Urine Opiates Scre en (Negative) ng/mL Acetaminophen (10-30) ug/mL Ur Barbiturates Sc reen (Negative) ng/mL Ur Phencyclidine S crn (Negative) ng/mL Ur Amphetamines Sc reen (Negative) ng/mL U Benzodiazepines Scrn (Negative) ng/mL Urine Cocaine Scre en (Negative) ng/mL U Marijuana (THC) Screen (Negative) ng/mL Ethyl Alcohol (0-10) mg/dL SARS-CoV-2 Ag (Rap id) (Negative) Discharge Plan Discharge Patient Disposition: Admitted As Inpatient Admit Provider: Camelia Ruiz Clinical Impression: Hallucination, Tachycardia, Hypertension Condition: Stable Sign Out Sign Out Data: Patient Sign Out occurred on 07/19/20 at 17:24. Patient's care was discussed, a nd care was transferred from to Mara Holliday MD, [facility] [place] Coding Level of Care Code ED Senior Technical Business Analyst for Chg Fwd Exam Expanded Problem Focused Documented by User: Mara Holliday MD, [facility] [place] 07/20/20 11:28 HPI - Psych General: Chief Complaint: Recheck/Abnormal Lab/Rx Stated Complaint: mhe Time Seen by Provider: 07/19/20 17:24 PFSH ED PFSH: Medical History AAA (abdominal aortic aneurysm) Adjustment disorder with depressed mood Anxiety BPH (benign prostatic hyperplasia) Diverticulosis Hypercholesterolemia Hypertension OCD (obsessive compulsive disorder) (~2013) PTSD (post-traumatic stress disorder) Surgical History History of colonoscopy (~2013) diverticulosis S/P bilateral inguinal hernia repair Status post surgical removal of malignant neoplasm of skin Family History Family/Other Cancer brother- colon cancer Hypertension brother Mother Cancer colon cancer Father Diabetes Denies family history of Anesthesia complication Bleeding disorder Social History Smoking and tobacco status: current every day smoker cigarettes Packs smoked per day: 0.5 Years cigarettes smoked: 50 Second hand smoke exposure: No Alcohol intake: never Desire information about alcohol rehabilitation?: No Adopted: No Caregiver/support person: Yes Lives independently: Yes Household members: spouse Housing: House Marital status: service: Yes branch: [employer] Current occupational status: retired Current occupational exposures/hazards: No Pets and animals: No History of recent travel: No Sexually active: No Current gender identity: Male Meron/Presybeterian: Mormonism Special meron needs: No Agree to transfusion: No Financial difficulty paying for basics: Decline to Answer MDM - Psych MDM Narrative: Medical decision making narrative: Patient who was initially evaluated by Krystal Pa, kindly review her notes for complete history and exa mination. I also evaluated this patient. Essentially the patient is a 70-year-old male with a history of PTSD who has been having some episodes of psychotic behavior for the last 2 days. He was seen in the emergency department yesterday for the same thing and was evaluated by the psychiatrist in this facility at the time. He was discharged home with a prescription for risperidone and mirtazapine, however the patient did not improve. said that the patient stayed up all night and did not sleep at all. Today he took the keys to her truck and drove to an insurance agency and claimed that he was being followed, spider on unwanted line for some alcohol. Because of this the psychiatrist believe the patient would need to be transferred to the geriatric psych facility. His initial medical screening tests were essentially unremarkable and just showed mild hypokalemia. While awaiting for geriatric facility to review him he developed unexplained hypotension and tachycardia and prior to this his vital signs have been normal. Because he has a history of a AAA and is being planned for stent placement for the AAA he received a CT angiogram of his chest abdomen and pelvis which is essentially negative. AAA is stable and he has no PE or thoracic aneurysm or dissection. Trying to figure out the cause of the hypotension and tachycardia cardiac enzymes have been drawn. He is pending his cardiac enzymes and the care of this patient is transferred to Dr. Martínez. Medical Records: Attestation: I reviewed the patient's medical records. Lab Data: Attestation: I reviewed the patient's lab results. Labs: Lab Results 07/19/20 07/19/20 07/19/20 Range/Units 17:05 17:05 17:25 WBC 12.5 H (4.0-10.0) 10^3/ uL RBC 5.61 H (4.1-5.3) 10^6/u L Hgb 16.2 (11.7-16.6) g/dL Hct 48.6 (42.0-52.0) % MCV 86.6 (80-94) fL MCH 28.9 (28.0-34.0) pg MCHC 33.3 (30.0-36.0) g/dL RDW 14.1 (12.1-15.1) % Plt Count 316 (130-400) 10^3/c mm MPV 8.7 (7.4-10.4) fL Neut % (Auto) 62.6 % Lymph % (Auto) 25.5 % Nuckolls % (Auto) 9.3 % Eos % (Auto) 1.6 % Baso % (Auto) 0.7 % Neut # (Auto) 7.80 H (1.8-7.7) 10^3/u L Lymph # (Auto) 3.2 (0.8-4.8) 10^3/u L Nuckolls # (Auto) 1.2 H (0.2-0.9) 10^3/u L Eos # (Auto) 0.2 (0.0-0.8) 10^3/u L Baso # (Auto) 0.1 (0.0-0.1) 10^3/u L Nucleated RBC % (a uto) 0 % Nucleated RBCs # 0.0 /100WBC Sodium 142 (136-145) mmol/L Potassium 3.2 L (3.5-5.1) mmol/L Chloride 101 (98-107) mmol/L Carbon Dioxide 31 H (22-29) mmol/L Anion Gap 13.2 (5-19) BUN 16 (8-23) mg/dL Creatinine 1.0 (0.7-1.2) mg/dL GFR Calculation 73.9 L (90-130) mL/min Glucose 123 H (65-115) mg/dL Calculated Osmolal ity 297 H (285-295) mOsm/k g Lactic Acid (0.5-2.2) mmol/L Calcium 9.8 (8.5-10.5) mg/dL Total Bilirubin 0.3 (0.15-1.2) mg/dL AST 18 (0-40) U/L ALT 17 (0-41) U/L Alkaline Phosphata se 93 (40-130) IU/L Troponin T Baselin e (0-15) ng/L Total Protein 6.8 (6.6-8.7) g/dL Albumin 3.9 (3.5-5.2) g/dL Globulin 2.9 (1.3-4.6) g/dL TSH 1.35 (0.27-4.20) uIU/ mL Urine Color (Yellow) Urine Appearance (CLEAR) Urine pH (5-7) Ur Specific Gravit y (1.005-1.030) Urine Protein (Negative) Urine Glucose (UA) (Normal) Urine Ketones (Negative) Urine Blood (Negative) Urine Nitrate (Negative) Urine Bilirubin (Negative) Urine Urobilinogen (Negative) mg/dL Ur Leukocyte Lata ase (Negative) Urine RBC (0-2) /hpf Urine WBC (0-5) /hpf Ur Squamous Epith Cells (0-5) /hpf Amorphous Sediment Urine Bacteria (NONE) /hpf Salicylates < 0.3 L (3-10) mg/dL Urine Opiates Scre en Negative (Negative) ng/mL Acetaminophen < 5.0 L (10-30) ug/mL Ur Barbiturates Sc reen Negative (Negative) ng/mL Ur Phencyclidine S crn Negative (Negative) ng/mL Ur Amphetamines Sc reen Negative (Negative) ng/mL U Benzodiazepines Scrn Negative (Negative) ng/mL Urine Cocaine Scre en Negative (Negative) ng/mL U Marijuana (THC) Screen Negative (Negative) ng/mL Ethyl Alcohol < 10 (0-10) mg/dL SARS-CoV-2 Ag (Rap id) (Negative) 07/19/20 07/19/20 07/20/20 Range/Units 17:37 22:30 00:58 WBC (4.0-10.0) 10^3/ uL RBC (4.1-5.3) 10^6/u L Hgb (11.7-16.6) g/dL Hct (42.0-52.0) % MCV (80-94) fL MCH (28.0-34.0) pg MCHC (30.0-36.0) g/dL RDW (12.1-15.1) % Plt Count (130-400) 10^3/c mm MPV (7.4-10.4) fL Neut % (Auto) % Lymph % (Auto) % Nuckolls % (Auto) % Eos % (Auto) % Baso % (Auto) % Neut # (Auto) (1.8-7.7) 10^3/u L Lymph # (Auto) (0.8-4.8) 10^3/u L Nuckolls # (Auto) (0.2-0.9) 10^3/u L Eos # (Auto) (0.0-0.8) 10^3/u L Baso # (Auto) (0.0-0.1) 10^3/u L Nucleated RBC % (a uto) % Nucleated RBCs # /100WBC Sodium (136-145) mmol/L Potassium (3.5-5.1) mmol/L Chloride (98-107) mmol/L Carbon Dioxide (22-29) mmol/L Anion Gap (5-19) BUN (8-23) mg/dL Creatinine (0.7-1.2) mg/dL GFR Calculation (90-130) mL/min Glucose (65-115) mg/dL Calculated Osmolal ity (285-295) mOsm/k g Lactic Acid 1.1 (0.5-2.2) mmol/L Calcium (8.5-10.5) mg/dL Total Bilirubin (0.15-1.2) mg/dL AST (0-40) U/L ALT (0-41) U/L Alkaline Phosphata se (40-130) IU/L Troponin T Baselin e (0-15) ng/L Total Protein (6.6-8.7) g/dL Albumin (3.5-5.2) g/dL Globulin (1.3-4.6) g/dL TSH (0.27-4.20) uIU/ mL Urine Color Yellow (Yellow) Urine Appearance Clear (CLEAR) Urine pH 7 (5-7) Ur Specific Gravit y 1.010 (1.005-1.030) Urine Protein Neg (Negative) Urine Glucose (UA) Norm (Normal) Urine Ketones Negative (Negative) Urine Blood Trace H (Negative) Urine Nitrate Negative (Negative) Urine Bilirubin Neg (Negative) Urine Urobilinogen Norm (Negative) mg/dL Ur Leukocyte Lata ase Negative (Negative) Urine RBC 5-10 H (0-2) /hpf Urine WBC 0-4 H (0-5) /hpf Ur Squamous Epith Cells 0-4 H (0-5) /hpf Amorphous Sediment Not Reportable Urine Bacteria Trace (NONE) /hpf Salicylates (3-10) mg/dL Urine Opiates Scre en (Negative) ng/mL Acetaminophen (10-30) ug/mL Ur Barbiturates Sc reen (Negative) ng/mL Ur Phencyclidine S crn (Negative) ng/mL Ur Amphetamines Sc reen (Negative) ng/mL U Benzodiazepines Scrn (Negative) ng/mL Urine Cocaine Scre en (Negative) ng/mL U Marijuana (THC) Screen (Negative) ng/mL Ethyl Alcohol (0-10) mg/dL SARS-CoV-2 Ag (Rap id) Negative (Negative) 07/20/20 Range/Units 00:58 WBC (4.0-10.0) 10^3/ uL RBC (4.1-5.3) 10^6/u L Hgb (11.7-16.6) g/dL Hct (42.0-52.0) % MCV (80-94) fL MCH (28.0-34.0) pg MCHC (30.0-36.0) g/dL RDW (12.1-15.1) % Plt Count (130-400) 10^3/c mm MPV (7.4-10.4) fL Neut % (Auto) % Lymph % (Auto) % Nuckolls % (Auto) % Eos % (Auto) % Baso % (Auto) % Neut # (Auto) (1.8-7.7) 10^3/u L Lymph # (Auto) (0.8-4.8) 10^3/u L Nuckolls # (Auto) (0.2-0.9) 10^3/u L Eos # (Auto) (0.0-0.8) 10^3/u L Baso # (Auto) (0.0-0.1) 10^3/u L Nucleated RBC % (a uto) % Nucleated RBCs # /100WBC Sodium (136-145) mmol/L Potassium (3.5-5.1) mmol/L Chloride (98-107) mmol/L Carbon Dioxide (22-29) mmol/L Anion Gap (5-19) BUN (8-23) mg/dL Creatinine (0.7-1.2) mg/dL GFR Calculation (90-130) mL/min Glucose (65-115) mg/dL Calculated Osmolal ity (285-295) mOsm/k g Lactic Acid (0.5-2.2) mmol/L Calcium (8.5-10.5) mg/dL Total Bilirubin (0.15-1.2) mg/dL AST (0-40) U/L ALT (0-41) U/L Alkaline Phosphata se (40-130) IU/L Troponin T Baselin e 40 H (0-15) ng/L Total Protein (6.6-8.7) g/dL Albumin (3.5-5.2) g/dL Globulin (1.3-4.6) g/dL TSH (0.27-4.20) uIU/ mL Urine Color (Yellow) Urine Appearance (CLEAR) Urine pH (5-7) Ur Specific Gravit y (1.005-1.030) Urine Protein (Negative) Urine Glucose (UA) (Normal) Urine Ketones (Negative) Urine Blood (Negative) Urine Nitrate (Negative) Urine Bilirubin (Negative) Urine Urobilinogen (Negative) mg/dL Ur Leukocyte Lata ase (Negative) Urine RBC (0-2) /hpf Urine WBC (0-5) /hpf Ur Squamous Epith Cells (0-5) /hpf Amorphous Sediment Urine Bacteria (NONE) /hpf Salicylates (3-10) mg/dL Urine Opiates Scre en (Negative) ng/mL Acetaminophen (10-30) ug/mL Ur Barbiturates Sc reen (Negative) ng/mL Ur Phencyclidine S crn (Negative) ng/mL Ur Amphetamines Sc reen (Negative) ng/mL U Benzodiazepines Scrn (Negative) ng/mL Urine Cocaine Scre en (Negative) ng/mL U Marijuana (THC) Screen (Negative) ng/mL Ethyl Alcohol (0-10) mg/dL SARS-CoV-2 Ag (Rap id) (Negative) Imaging Data^: Other CT: Attestation: I personally reviewed and interpreted this imaging study as follows: Radiologist's impression: [facility] [address] [place] [address] CT Scan Report Signed Patient: Lalo Marr #: [id number] : 1Acct#:[id number] Age/Sex: 70 / MADM Date: 07/19/20 Loc: ERRoom/Bed: Attending Dr: Ordering Provider/Ordering MD: Mara Holliday MD, [facility] [place] of Service: 07/19/20 Procedure(s): CT angio abdomen pelvis 32580 Accession Number(s): [id number] Report Number: [id number] PROCEDURE INFORMATION: Exam: CT Angiography Chest With Contrast Exam date and time: 07/19/2020 11:11 PM Age: 70 years old Clinical indication: Shortness of breath; Hypotension; Prior surgery; Surgery type: Hernia; Additional info: Aaa, hypotension TECHNIQUE: Imaging protocol: Computed tomographic angiography of the chest with intravenous contrast. 3D rendering (Not supervised by radiologist): MIP and/or 3D reconstructed images were created by the technologist. Radiation optimization: All CT scans at this facility use at least one of these dose optimization techniques: automated exposure control; mA and/or kV adjustment per patient size (includes targeted exams where dose is matched to clinical indication); or iterative reconstruction. Contrast material: OMNI 350; Contrast volume: 95 ml; Contrast route: INTRAVENOUS (IV); COMPARISON: CT angio abdomen pelvis [id number] 05/31/2020 1:21 PM RADIATION DOSE METRICS: Total DLP (mGy-cm): 742.3 FINDINGS: Pulmonary arteries: Normal. No pulmonary emboli. Aorta: Calcifications are seen within the thoracic aorta. Lungs: Unremarkable. No consolidation. No masses. Pleural space: Unremarkable. No pneumothorax. No pleural effusion. Heart: Unremarkable. No cardiomegaly. No pericardial effusion. Lymph nodes: Unremarkable. No enlarged lymph nodes. Bones/joints: Diffuse loss of disc height is seen within the thoracic spine compatible with degenerative disc disease. Soft tissues: Unremarkable. IMPRESSION: 1. There is no evidence for aneurysmal dilatation, dissection or extravasation of the thoracic aorta. 2. There is no evidence for pulmonary emboli. PROCEDURE INFORMATION: Exam: CT Angiography Abdomen and Pelvis With Contrast Exam date and time: 07/19/2020 11:11 PM Age: 70 years old Clinical indication: Shortness of breath; Hypotension; Prior surgery; Surgery type: Hernia; Additional info: Aaa, hypotension TECHNIQUE: Imaging protocol: Computed tomographic angiography of the abdomen and pelvis with intravenous contrast material. 3D rendering (Not supervised by radiologist): MIP and/or 3D reconstructed images were created by the technologist. Radiation optimization: All CT scans at this facility use at least one of these dose optimization techniques: automated exposure control; mA and/or kV adjustment per patient size (includes targeted exams where dose is matched to clinical indication); or iterative reconstruction. Contrast material: OMNI 350; Contrast volume: 95 ml; Contrast route: INTRAVENOUS (IV); COMPARISON: CT angio abdomen pelvis [id number] 05/31/2020 1:21 PM RADIATION DOSE METRICS: Total DLP (mGy-cm): 742.3 FINDINGS: Aorta: There is stable aneurysmal dilatation of the infrarenal abdominal aorta measuring 4.3 cm transverse dimension by 4.6 cm AP dimension and 7.4 cm craniocaudal dimension. There is no evidence for active dissection or extravasation. Celiac trunk and mesenteric arteries: No occlusion or significant stenosis. Renal arteries: No occlusion or significant stenosis. Right iliac arteries: No occlusion or significant stenosis. Left iliac arteries: No occlusion or significant stenosis. Liver: No mass. Gallbladder and bile ducts: Prominent gallstone is seen. Pancreas: Unremarkable. No mass. No ductal dilation. Spleen: Unremarkable. No splenomegaly. Adrenals: Unremarkable. No mass. Kidneys and ureters: There are stable bilateral renal cysts present. Stomach and bowel: Diverticula are seen scattered on the colon. There are no inflammatory changes present to suggest diverticulitis. Appendix: The appendix is visualized and is normal in configuration. Intraperitoneal space: Unremarkable. No free air. No significant fluid collection. Lymph nodes: Unremarkable. No enlarged lymph nodes. Urinary bladder: Unremarkable. No mass. Reproductive: Unremarkable as visualized. Bones/joints: No acute fracture. No dislocation. Soft tissues: Unremarkable. CT/CT angio abdomen pelvis [id number] IMPRESSION: 1. There is stable aneurysmal dilatation of the infrarenal abdominal aorta today measuring 4.3 cm transverse dimension by 4.6 cm AP dimension by 7.4 cm craniocaudal dimension. There is no evidence for dissection or extravasation. 2. Otherwise stable CT of the abdomen and pelvis Radiation Dose CTDIVOL = (mGy): DLP = 742.3~742.3 (mGy-cm) Dictated By:Josh Otero MD Signed By:Josh Otero MDSigned Date/Time:07/20/2033 DD/ CTA Chest: Attestation: I personally reviewed and interpreted this imaging study as follows: Radiologist's impression: [facility] [address] [address] Scan Report Signed Patient: Lalo Marr #: [id number] : 1950cct#:[id number] Age/Sex: 70 / MADM Date: 07/19/20 Loc: ERRoom/Bed: Attending Dr: Ordering Provider/Ordering MD: Mara Holliday MD, [facility] [place] of Service: 07/19/20 Procedure(s): CT angio chest PE protcl [id number] Accession Number(s): [id number] Report Number: [id number] PROCEDURE INFORMATION: Exam: CT Angiography Chest With Contrast Exam date and time: 07/19/2020 11:39 PM Age: 70 years old Clinical indication: Shortness of breath; Additional info: Pe TECHNIQUE: Imaging protocol: Computed tomographic angiography of the chest with intravenous contrast. 3D rendering (Not supervised by radiologist): MIP and/or 3D reconstructed images were created by the technologist. Radiation optimization: All CT scans at this facility use at least one of these dose optimization techniques: automated exposure control; mA and/or kV adjustment per patient size (includes targeted exams where dose is matched to clinical indication); or iterative reconstruction. Contrast material: MCSA803; Contrast volume: 77 ml; Contrast route: INTRAVENOUS (IV); COMPARISON: CT angio abdomen pelvis [id number] 07/19/2020 11:31 PM RADIATION DOSE METRICS: Total DLP (mGy-cm): 599.85 FINDINGS: Pulmonary arteries: Normal. No pulmonary emboli. Aorta: Calcifications are seen within the thoracic aorta. Lungs: Unremarkable. No consolidation. No masses. Pleural space: Unremarkable. No pneumothorax. No pleural effusion. Heart: Calcifications are present within the coronary arteries. Mediastinal space: A small hiatal hernia is seen. Lymph nodes: There is a calcified right hilar lymph node present. Gallbladder and bile ducts: Prominent gallstone is seen. Kidneys and ureters: There are stable bilateral renal cysts present. Bones/joints: Unremarkable. No acute fracture. Soft tissues: Unremarkable. Other findings: There is a 4.3 mm calcified granuloma seen in the right lateral hemithorax. CT/CT angio chest PE protcl [id number] IMPRESSION: 1. There is no evidence for pulmonary emboli. 2. Evidence of prior granulomatous exposure 3. Small hiatal hernia 4. Stable bilateral simple renal cysts. 5. Prominent gallstone Radiation Dose CTDIVOL = (mGy): DLP = 599.85 (mGy-cm) Dictated By:Josh Otero MD Signed By:Josh Otero MDSigned Date/Time:07/20/2023 DD/ CXR: Attestation: I personally reviewed and interpreted this imaging study as follows: Radiologist's impression: [address] [address] XRay Report Signed Patient: Lalo Marr #: [id number] : 1950cct#:[id number] Age/Sex: 70 / MADM Date: 07/19/20 Loc: ERRoom/Bed: Attending Dr: Ordering Provider/Ordering MD: Mara Holliday MD, [facility] [place] of Service: 07/19/20 Procedure(s): XR chest 1V portable [id number] Accession Number(s): [id number] Report Number: [id number] PROCEDURE INFORMATION: Exam: XR Chest, 1 View Exam date and time: 07/19/2020 10:26 PM Age: 70 years old Clinical indication: Other: Psychosis TECHNIQUE: Imaging protocol: XR of the chest Views: 1 view. COMPARISON: CT angio chest [id number] 02/29/2020 1:42 PM FINDINGS: Lungs: Unremarkable. No consolidation. Pleural space: Unremarkable. No pleural effusion. No pneumothorax. Heart/Mediastinum: Unremarkable. No cardiomegaly. Bones/joints: Unremarkable. XR/XR chest 1V portable [id number] IMPRESSION: No acute findings. Dictated By:Josh Otero MD Signed By:Josh Otero MDSigned Date/Time:07/19/202257 DD/ 55 US: Attestation: I personally reviewed and interpreted this imaging study as follows: Radiologist's impression: [address] [place] [address] Ultrasound Report Signed Patient: Lalo Marr #: [id number] : 1950cct#:[id number] Age/Sex: 70 / MADM Date: 07/19/20 Loc: ERRoom/Bed: Attending Dr: Ordering Provider/Ordering MD: Mara Holliday MD, [facility] [place] of Service: 07/20/20 Procedure(s): US gall bladder [id number] Accession Number(s): [id number] Report Number: [id number] PROCEDURE INFORMATION: Exam: US Abdomen, Limited; Right Upper Quadrant Exam date and time: 07/20/2020 12:33 AM Age: 70 years old Clinical indication: Abdominal pain; Acute; Additional info: Ruq pain TECHNIQUE: Imaging protocol: US abdomen. Real time ultrasound with image documentation. Limited exam focused on the right upper quadrant. COMPARISON: CT angio abdomen pelvis [id number] 07/19/2020 11:31 PM FINDINGS: Liver: Normal. No masses. Gallbladder: There is a prominent hyperechoic focus seen in the gallbladder neck exhibiting acoustic shadowing compatible with a gallstone. Common bile duct: Normal. No stones. No dilation. Pancreas: Visualized pancreas is unremarkable. Right kidney: An anechoic cystic mass seen in the upper pole of the right kidney measuring 1.9 x 2.3 cm compatible with a simple cyst. A 2nd anechoic cystic mass seen in the lower pole of the right kidney measuring approximately 2.5 cm in diameter. Aorta: There is aneurysmal dilatation of the infrarenal abdominal aorta measuring 4.2 cm. This correlates with the CT examination 06/18/2021. US/US gall bladder 46698 IMPRESSION: 1. Prominent gallstone within the gallbladder neck. There are no findings to suggest cholecystitis. 2. Aneurysmal dilatation of the infrarenal abdominal aorta measuring 4.2 cm diameter correlates with the CT examination of 06/18/2021. 3. There are 2 simple right renal cysts, the largest seen in the lower pole measuring 2.5 cm. Dictated By:Josh Otero MD Signed By:Josh Otero MDSigned Date/Time:07/20/20129 DD/ 7 EKG Data^: EKG 1: Attestation: I personally reviewed and interpreted this EKG as follows: EKG interpretation date: 07/19/20 EKG interpretation time: 17:32 Prior EKG tracings: not available for review Interpretation: Junctional rhythm. Heart rate [address] changes. Discharge Plan Discharge Patient Disposition: Admitted As Inpatient Admit Provider: Camelia Ruiz Clinical Impression: Hallucination, Tachycardia, Hypertension Condition: Stable Sign Out Sign Out Data: Patient Sign Out occurred on 07/19/20 at 17:24. Patient's care was discussed, and care was transferred from to Mara Holliday MD, [facility] Coding Level of Care Code ED Senior Technical Business Analyst for Chg Fwd Exam Expanded Problem Focused
--- NOTE | 2020-07-19 17:10 | ECG_ITS ---
[facility] Test Date: 2020-07-19 Pat Name: Lalo Marr Department: Room: Gender: Male [employer]: : 1950 Requested By: Krystal Whitaker Order Number: [id number] Vikram MD: Kelvin Lora M.D. Measurements Intervals Cosmos Rate: 94 P: -83 WY: 120 QRS: -24 QRSD: 79 T: 67 QT: 350 QTc: 439 Interpretive Statements Multifocal atrial rhythm BORDERLINE LEFT AXIS DEVIATION [QRS AXIS < -20] MODERATE ST DEPRESSION [0.05+ mV ST DEPRESSION] Compared to ECG 11/25/2016 09:22:06 Junctional rhythm now present ST (T wave) deviation now present Ectopic atrial rhythm no longer present Ventricular premature complex(es) no longer present Electronically Signed On 07-19-2020 19:18:52 [employer] OPERATOR by Kelvin Lora M.D. [id number]
--- NOTE | 2020-07-19 17:14 | PC.NURSE ---
pt states was here yesterday for depression and prescribed new meds that he took one dose of and states is not working. pt left the house last night and this was 's main concern. pt voices thoughts of depression but denies SI/HI. pt states he is hearing music that is not there and seeing people in his house and in his yard that are not there. reports paranoid delusions thinking that people are tapping into his phone stealing his identity and going to end the world. pt is withdrawn and has poor eye contact.
[2020-07-19 17:24] LABS: Basophils # 0.1 10^3/uL (0.0-0.1); Basophils % 0.7 %; Eosinophils # 0.2 10^3/uL (0.0-0.8); Eosinophils % 1.6 %; Hematocrit 48.6 % (42.0-52.0); Hemoglobin 16.2 g/dL (11.7-16.6); Lymphocytes # 3.2 10^3/uL (0.8-4.8); Lymphocytes % 25.5 %; Mean Corpuscular HGB Conc 33.3 g/dL (30.0-36.0); Mean Corpuscular Hemoglobin 28.9 pg (28.0-34.0); Mean Corpuscular Volume 86.6 fL (80-94); Mean Platelet Volume 8.7 fL (7.4-10.4); Monocytes # 1.2 10^3/uL (0.2-0.9); Monocytes % 9.3 %; Neutrophils % 62.6 %; Nucleated Red Blood Cells % 0 %; Platelet Count 316 10^3/cmm (130-400); Red Blood Count 5.61 10^6/uL (4.1-5.3); Red Cell Distribution Width 14.1 % (12.1-15.1); White Blood Count 12.5 10^3/uL (4.0-10.0)
[2020-07-19 17:53] LABS: Alanine Aminotransferase 17 U/L (0-41); Albumin Level 3.9 g/dL (3.5-5.2); Alkaline Phosphatase 93 IU/L (40-130); Anion Gap 13.2 (5-19); Aspartate Amino Transferase 18 U/L (0-40); Blood Urea Nitrogen 16 mg/dL (8-23); Calcium 9.8 mg/dL (8.5-10.5); Carbon Dioxide 31 mmol/L (22-29); Chloride 101 mmol/L (98-107); Creatinine Clr Calc Pharmacy 77.9003; Globulin 2.9 g/dL (1.3-4.6); Glomerular Filtration Rate 73.9 mL/min (90-130); Glucose 123 mg/dL (65-115); Osmolality Calculated 297 mOsm/kg (285-295); Potassium 3.2 mmol/L (3.5-5.1); Sodium 142 mmol/L (136-145); Thyroid Stimulating Hormone 1.35 uIU/mL (0.27-4.20); Total Bilirubin 0.3 mg/dL (0.15-1.2); Total Protein 6.8 g/dL (6.6-8.7)
--- NOTE | 2020-07-19 17:56 | PC.NURSE ---
420 sitter initiated, pt belongings collected and pt placed in paper scrubs
[2020-07-19 18:03] LABS: Acetaminophen < 5.0 ug/mL (10-30); Alcohol Level < 10 mg/dL (0-10); Salicylate < 0.3 mg/dL (3-10)
[2020-07-19 18:03] LABS: Amphetamines Screen Urine Negative (Negative); Barbiturates Screen Urine Negative (Negative); Benzodiazepines Screen Urine Negative (Negative); Cocaine Screen Urine Negative (Negative); Opiate Screen Urine Negative (Negative); PCP Screen Urine Negative (Negative); THC Screen Urine Negative (Negative)
--- NOTE | 2020-07-19 18:03 | PC.NURSE ---
[facility] has no beds, refers me to call [facility] (javier casiano) [phone]
--- NOTE | 2020-07-19 18:08 | PC.NURSE ---
called [facility], states to fax and they will see if they have a bed
[2020-07-19 18:13] LABS: SARS Covid-2 Antigen Negative (Negative)
--- NOTE | 2020-07-19 18:13 | PC.NURSE ---
faxed pt info to [facility]
[2020-07-19 19:06] VITALS: BP 158/90; PULSE 97; RESP 18; O2SAT 95
--- NOTE | 2020-07-19 19:36 | PC.NURSE ---
deng states had not reviewed pt chart yet, but requesting face sheet
[2020-07-19 20:39] VITALS: BP 134/95; PULSE 118; RESP 18; O2SAT 95
--- NOTE | 2020-07-19 21:17 | PC.NURSE ---
ish called back, no nurse on other end when picking up. called again to inquire, charge nurse busy.
--- NOTE | 2020-07-19 22:23 | XRR_ITS ---
PROCEDURE INFORMATION: Exam: XR Chest, 1 View Exam date and time: 07/19/2020 10:26 PM Age: 70 years old Clinical indication: Other: Psychosis TECHNIQUE: Imaging protocol: XR of the chest Views: 1 view. COMPARISON: CT angio chest [id number] 02/29/2020 1:42 PM FINDINGS: Lungs: Unremarkable. No consolidation. Pleural space: Unremarkable. No pleural effusion. No pneumothorax. Heart/Mediastinum: Unremarkable. No cardiomegaly. Bones/joints: Unremarkable. XR/XR chest 1V portable [id number] IMPRESSION: No acute findings.
[2020-07-19 22:36] VITALS: BP 84/59; PULSE 122; RESP 18; O2SAT 93
[2020-07-19] MEDS: sodium chloride 0.9% 1,000 ML 999 ML IV (22:45)
[2020-07-19 22:58] LABS: Add Urine Microscopic? YES; Bilirubin Urine Neg (Negative); Blood Urine Trace (Negative); Glucose Urine UA Norm (Normal); Ketones Urine Negative (Negative); Leukocyte Esterase Urine Negative (Negative); Nitrate Urine Negative (Negative); Protein Urine Neg (Negative); Urine Appearance Clear (CLEAR); Urine Color Yellow (Yellow); Urobilinogen Urine Norm (Negative); pH Urine 7 (5-7)
--- NOTE | 2020-07-19 23:02 | CTR_ITS ---
PROCEDURE INFORMATION: Exam: CT Angiography Chest With Contrast Exam date and time: 07/19/2020 11:11 PM Age: 70 years old Clinical indication: Shortness of breath; Hypotension; Prior surgery; Surgery type: Hernia; Additional info: Aaa, hypotension TECHNIQUE: Imaging protocol: Computed tomographic angiography of the chest with intravenous contrast. 3D rendering (Not supervised by radiologist): MIP and/or 3D reconstructed images were created by the technologist. Radiation optimization: All CT scans at this facility use at least one of these dose optimization techniques: automated exposure control; mA and/or kV adjustment per patient size (includes targeted exams where dose is matched to clinical indication); or iterative reconstruction. Contrast material: OMNI 350; Contrast volume: 95 ml; Contrast route: INTRAVENOUS (IV); COMPARISON: CT angio abdomen pelvis [id number] 05/31/2020 1:21 PM RADIATION DOSE METRICS: Total DLP (mGy-cm): 742.3 FINDINGS: Pulmonary arteries: Normal. No pulmonary emboli. Aorta: Calcifications are seen within the thoracic aorta. Lungs: Unremarkable. No consolidation. No masses. Pleural space: Unremarkable. No pneumothorax. No pleural effusion. Heart: Unremarkable. No cardiomegaly. No pericardial effusion. Lymph nodes: Unremarkable. No enlarged lymph nodes. Bones/joints: Diffuse loss of disc height is seen within the thoracic spine compatible with degenerative disc disease. Soft tissues: Unremarkable. IMPRESSION: 1. There is no evidence for aneurysmal dilatation, dissection or extravasation of the thoracic aorta. 2. There is no evidence for pulmonary emboli. PROCEDURE INFORMATION: Exam: CT Angiography Abdomen and Pelvis With Contrast Exam date and time: 07/19/2020 11:11 PM Age: 70 years old Clinical indication: Shortness of breath; Hypotension; Prior surgery; Surgery type: Hernia; Additional info: Aaa, hypotension TECHNIQUE: Imaging protocol: Computed tomographic angiography of the abdomen and pelvis with intravenous contrast material. 3D rendering (Not supervised by radiologist): MIP and/or 3D reconstructed images were created by the technologist. Radiation optimization: All CT scans at this facility use at least one of these dose optimization techniques: automated exposure control; mA and/or kV adjustment per patient size (includes targeted exams where dose is matched to clinical indication); or iterative reconstruction. Contrast material: OMNI 350; Contrast volume: 95 ml; Contrast route: INTRAVENOUS (IV); COMPARISON: CT angio abdomen pelvis [id number] 05/31/2020 1:21 PM RADIATION DOSE METRICS: Total DLP (mGy-cm): 742.3 FINDINGS: Aorta: There is stable aneurysmal dilatation of the infrarenal abdominal aorta measuring 4.3 cm transverse dimension by 4.6 cm AP dimension and 7.4 cm craniocaudal dimension. There is no evidence for active dissection or extravasation. Celiac trunk and mesenteric arteries: No occlusion or significant stenosis. Renal arteries: No occlusion or significant stenosis. Right iliac arteries: No occlusion or significant stenosis. Left iliac arteries: No occlusion or significant stenosis. Liver: No mass. Gallbladder and bile ducts: Prominent gallstone is seen. Pancreas: Unremarkable. No mass. No ductal dilation. Spleen: Unremarkable. No splenomegaly. Adrenals: Unremarkable. No mass. Kidneys and ureters: There are stable bilateral renal cysts present. Stomach and bowel: Diverticula are seen scattered on the colon. There are no inflammatory changes present to suggest diverticulitis. Appendix: The appendix is visualized and is normal in configuration. Intraperitoneal space: Unremarkable. No free air. No significant fluid collection. Lymph nodes: Unremarkable. No enlarged lymph nodes. Urinary bladder: Unremarkable. No mass. Reproductive: Unremarkable as visualized. Bones/joints: No acute fracture. No dislocation. Soft tissues: Unremarkable. CT/CT angio abdomen pelvis [id number] IMPRESSION: 1. There is stable aneurysmal dilatation of the infrarenal abdominal aorta today measuring 4.3 cm transverse dimension by 4.6 cm AP dimension by 7.4 cm craniocaudal dimension. There is no evidence for dissection or extravasation. 2. Otherwise stable CT of the abdomen and pelvis Radiation Dose CTDIVOL = (mGy): DLP = 742.3~742.3 (mGy-cm)
[2020-07-19 23:04] VITALS: BP 139/88; PULSE 110; RESP 18; O2SAT 94
[2020-07-19 23:04] LABS: Add Urine Culture? No; Bacteria Urine TRACE /hpf; Squamous Epithelial Cell Urine 0-4 /hpf (0-5); WBC Urine 0-4 /hpf (0-5)
[2020-07-19 23:20] VITALS: BP 183/114; PULSE 115; RESP 18; O2SAT 94
--- NOTE | 2020-07-19 23:39 | CTR_ITS ---
PROCEDURE INFORMATION: Exam: CT Angiography Chest With Contrast Exam date and time: 07/19/2020 11:39 PM Age: 70 years old Clinical indication: Shortness of breath; Additional info: Pe TECHNIQUE: Imaging protocol: Computed tomographic angiography of the chest with intravenous contrast. 3D rendering (Not supervised by radiologist): MIP and/or 3D reconstructed images were created by the technologist. Radiation optimization: All CT scans at this facility use at least one of these dose optimization techniques: automated exposure control; mA and/or kV adjustment per patient size (includes targeted exams where dose is matched to clinical indication); or iterative reconstruction. Contrast material: [id number]; Contrast volume: 77 ml; Contrast route: INTRAVENOUS (IV); COMPARISON: CT angio abdomen pelvis [id number] 07/19/2020 11:31 PM RADIATION DOSE METRICS: Total DLP (mGy-cm): 599.85 FINDINGS: Pulmonary arteries: Normal. No pulmonary emboli. Aorta: Calcifications are seen within the thoracic aorta. Lungs: Unremarkable. No consolidation. No masses. Pleural space: Unremarkable. No pneumothorax. No pleural effusion. Heart: Calcifications are present within the coronary arteries. Mediastinal space: A small hiatal hernia is seen. Lymph nodes: There is a calcified right hilar lymph node present. Gallbladder and bile ducts: Prominent gallstone is seen. Kidneys and ureters: There are stable bilateral renal cysts present. Bones/joints: Unremarkable. No acute fracture. Soft tissues: Unremarkable. Other findings: There is a 4.3 mm calcified granuloma seen in the right lateral hemithorax. CT/CT angio chest PE protcl [id number] IMPRESSION: 1. There is no evidence for pulmonary emboli. 2. Evidence of prior granulomatous exposure 3. Small hiatal hernia 4. Stable bilateral simple renal cysts. 5. Prominent gallstone Radiation Dose CTDIVOL = (mGy): DLP = 599.85 (mGy-cm)
[2020-07-19] MEDS: iohexol 350 mg/mL 100 mL Btl IV ×2 (23:42→23:47)
[2020-07-20] VITALS (16 sets, daily range): BP systolic 97–168; BP diastolic 68–106; PULSE 70–122; RESP 14–24; TEMP 36.7–36.9; O2SAT 92–97
--- NOTE | 2020-07-20 00:32 | USR_ITS ---
PROCEDURE INFORMATION: Exam: US Abdomen, Limited; Right Upper Quadrant Exam date and time: 07/20/2020 12:33 AM Age: 70 years old Clinical indication: Abdominal pain; Acute; Additional info: Ruq pain TECHNIQUE: Imaging protocol: US abdomen. Real time ultrasound with image documentation. Limited exam focused on the right upper quadrant. COMPARISON: CT angio abdomen pelvis [id number] 07/19/2020 11:31 PM FINDINGS: Liver: Normal. No masses. Gallbladder: There is a prominent hyperechoic focus seen in the gallbladder neck exhibiting acoustic shadowing compatible with a gallstone. Common bile duct: Normal. No stones. No dilation. Pancreas: Visualized pancreas is unremarkable. Right kidney: An anechoic cystic mass seen in the upper pole of the right kidney measuring 1.9 x 2.3 cm compatible with a simple cyst. A 2nd anechoic cystic mass seen in the lower pole of the right kidney measuring approximately 2.5 cm in diameter. Aorta: There is aneurysmal dilatation of the infrarenal abdominal aorta measuring 4.2 cm. This correlates with the CT examination 06/18/2021. US/US gall bladder [id number] IMPRESSION: 1. Prominent gallstone within the gallbladder neck. There are no findings to suggest cholecystitis. 2. Aneurysmal dilatation of the infrarenal abdominal aorta measuring 4.2 cm diameter correlates with the CT examination of 06/18/2021. 3. There are 2 simple right renal cysts, the largest seen in the lower pole measuring 2.5 cm.
--- NOTE | 2020-07-20 00:45 | ECG_ITS ---
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1950 Requested By: Mara Holliday I Order Number: [id number] Reading MD: JANETTE CHE Measurements Intervals [place] Rate: 105 P: GA: QRS: -30 QRSD: 79 T: 61 QT: 362 QTc: 479 Interpretive Statements ATRIAL FLUTTER/TACHYCARDIA WITH RAPID VENTRICULAR RESPONSE BORDERLINE LEFT AXIS DEVIATION [QRS AXIS < -20] MODERATE ST DEPRESSION [0.05+ mV ST DEPRESSION] Compared to ECG 07/19/2020 17:32:41 No significant changes Electronically Signed On 07-20-2020 18:16:39 SAMPLE CARRIER by JANETTE CHE [id number] f
[2020-07-20 01:28] LABS: Lactic Sepsis W/Reflex 1.1 mmol/L (0.5-2.2)
[2020-07-20 01:29] LABS: Troponin(5th) Baseline 40 ng/L (0-15)
[2020-07-20] MEDS: potassium chloride oral liq 20 mEq/15 mL UDC 40 MEQ PO (01:32)
--- NOTE | 2020-07-20 01:38 | P.HP_ITS ---
Providers/Chief Complaint Primary Care Provider: Olaf Swain DO Chief Complaint: mhe History of Present Illness Lalo Marr is a 70 year old male who presented today with his due to psychotic episode. Patient was seen yesterday in the ER for psychotic behavior as well he was showing paranoid behavior, was evaluated by psychiatrist who prescribed antipsychotics and discharge him from the ER. Patient was brought in by his who is endorsing that since last visit in the ER patient has not slept at all and today Mr. Marr took his spare car keys, drove himself through [employer] and once he reached there he claimed that they should call police because he wants to turn himself in. He was brought into the ER for further evaluation. Patient is stating that he thinks he is a fraud, he is very upset about forgetting things on daily basis, he used to be a very skillful and handful person and now is suffering from memory loss, it extremely upsets him that he is not able to use tools and phones anymore. Because of these reasons he wants to turn himself in so Police Department can do with his fraudulent behavior. On further questioning patient stated that he also thought about hurting himself but there were no plans and he is not able to tell me any details however when I asked about AAA repair by Dr. Manzano he said he rather have it ruptured. Plan was to place him to a [facility] but patient blood pressure dropped and his heart rate jumped to 100 after 1 L normal saline his heart rate and blood pressure improved but his rhythm changed to atrial fibrillation for which she required Cardizem IV bolus, it improved his heart rate, his rhythm is showing paroxysmal A. fib pattern with on and off sinus rhythm fluctuation, patient did not complain of any fever, chest pain, shortness of breath, orthopnea, PND. is at the bedside Diagnostics in the ER revealed mild leukocytosis, hypokalemia, lactic acid 1.1 baseline troponin 40 Considering AAA and paroxysmal A. fib with systolic blood pressure ranging 1 40- 1 60s decision was made to admit the patient Review of Systems Const: Denies: fever(s) or chills Eyes: Denies: change in vision ENMT: Denies: throat pain Card: Denies: chest pain Resp: Denies: dyspnea GI: Denies: abdominal pain : Denies: flank pain Musc: Denies: neck pain Skin/Breast: Denies: rash Neuro: Denies: headache(s) Psych: Reports: anxiety, change in appetite, paranoia, memory loss, difficulty concentrating and auditory hallucinations Endo: Denies: polyuria Dennis/Lymph: Denies: easy bruising All/Imm: Denies: urticaria Medications/Allergies Home Medications Medication Instructions Recorded Confirmed Last Taken Type cholecalciferol (vitamin D3) 50 2,000 unit PO DAILY@1200 08/18/19 07/19/20 07/18/20 History mcg (2,000 unit) capsule omega-3 fatty acids 500 mg capsule 500 mg PO DAILY@1200 08/18/19 07/19/20 07/18/20 History tamsulosin 0.4 mg capsule 0.4 mg PO DAILY@1200 08/18/19 07/19/20 07/18/20 History aspirin 81 mg tablet,delayed 81 mg PO DAILY@1200 08/22/19 07/19/20 07/18/20 History release dextrin 3 gram/3.5 gram oral powder 2 tsp PO TID 08/22/19 07/19/20 07/18/20 History hydrochlorothiazide 25 mg tablet 25 mg PO DAILY@1200 08/22/19 07/19/20 07/18/20 History potassium chloride 20 mEq 20 meq PO DAILY@1200 08/22/19 07/19/20 07/18/20 History tablet,extended release cilostazol 100 mg tablet 100 mg PO DAILY@1200 tab 05/09/20 07/19/20 07/18/20 History pravastatin 80 mg tablet 40 mg PO DAILY@1200 tab 05/09/20 07/19/20 07/18/20 History amlodipine 7.5 mg PO DAILY@1200 07/19/20 07/19/20 07/18/20 History docusate sodium [Colace] 100 mg PO BID@1200,0000 07/19/20 07/19/20 07/18/20 History mirtazapine [Remeron] 7.5 mg PO DAILY@0000 07/19/20 07/19/20 07/19/20 History risperidone 0.25 mg PO BID@1200,0000 07/19/20 07/19/20 07/19/20 History Allergies Allergy/AdvReac Type Severity Reaction Status Date / Time No Known Allergies Allergy Verified 09/19/19 14:12 PFSH Acute PFSH: Medical History AAA (abdominal aortic aneurysm) Adjustment disorder with depressed mood Anxiety BPH (benign prostatic hyperplasia) Diverticulosis Hypercholesterolemia Hypertension OCD (obsessive compulsive disorder) (~2013) PTSD (post-traumatic stress disorder) Surgical History History of colonoscopy (~2013) diverticulosis S/P bilateral inguinal hernia repair Status post surgical removal of malignant neoplasm of skin Family History Family/Other Cancer brother- colon cancer Hypertension brother Mother Cancer colon cancer Father Diabetes Denies family history of Anesthesia complication Bleeding disorder Social History Smoking and tobacco status: current every day smoker cigarettes Packs smoked pe r day: 0.5 Years cigarettes smoked: 50 Second hand smoke exposure: No Alcohol intake: never Desire information about alcohol rehabilitation?: No Adopted: No Caregiver/support person: Yes Lives independently: Yes Household members: spouse Housing: House Marital status: service: Yes branch: [employer] Current occupational status: retired Current occupational exposures/hazards: No Pets and animals: No History of recent travel: No Sexually active: No Current gender identity: Male Meron/Sabianism: [employer] Special meron needs: No Agree to transfusion: No Financial difficulty paying for basics: Decline to Answer Vitals/I&O/Wt Last Vital Signs Temp 97.5 F L 07/19/20 16:09 Pulse 83 07/20/20 01:22 Resp 18 07/20/20 01:22 BP 158/102 07/20/20 01:22 Pulse Ox 94 07/20/20 01:22 07/19/20 07/19/20 07/20/20 14:59 22:59 06:59 Intake Total 1000 / 1000 Balance 1000 / 1000 Weight last 48 hrs Weight 83.915 kg Physical Exam Narrative: EXAM NARRATIVE: elderly male He was laying comfortably in his bed when I entered the room at the bedside Patient looks extremely dehydrated with dry cracked lips We will also water was offered Patient is able to mention above HPI He depicts paranoid and psychotic behavior No active chest pain or shortness of breath he saturating well on room air, atrial fibrillation rhythm heart rate fluctuating between 80-1 10, current systolic blood pressure ranging between 1 40-1 60s systolic millimeter mercury No visible abdominal pulsation abdomen is soft nontender No extremity no edema gangrene ulcer Psychotic behavior anxious, paranoid, flushed skin EOMI, PERRLA No focal deficit Data : 07/19/20 17:05 07/19/20 17:05 A&P Assessment and plan (1) New onset a-fib: Status: Acute (2) Delusional disorder: Status: Acute (3) Psychosis: Status: Acute Additional A&P Information New onset A. fib Patient currently desponded very well to Cardizem IV push If his heart rate stays above 100 I would start Cardizem drip considering history of AAA with ideal heart rate between 70 to 80s and systolic blood pressure less than 120mmhg I would not start him on anticoagulating agent at this point due to progression of AAA, he is awaiting AAA repair by Dr. Manzano ([facility]), however his [id number] is 5, has bled score 2 Abnormal troponin most likely secondary to tachyarrhythmia patient is not complaining of active chest pain no ischemic or infarct changes seen on EKG Would recommend discussing anticoagulating option with Dr. Manzano as well Delusional disorder with psychosis Patient is showing paranoia, recently mirtazapine and risperidone was started by psychiatrist Patient has no suicidal ideation but stated he rather has his AAA rupture instead of going for the repair I would continue mirtazapine for now only and hold risperidone He will need psych consult as well in the morning Dehydration with hypokalemia Potassium repleted, patient blood pressure improved after 1 L normal saline resuscitation I would continue normal saline maintenance rate overnight Full code DVT prophylaxis SCDs, avoiding because of AAA dimensions, he is at risk of decompensation Cardiac diet Attestations Medical Necessity Statement*: Anticipating discharge in less than 48 hours continued overnight monitoring because of psychotic behavior, new onset A. fib RVR and abnormal troponin with high risk of AAA rupture Time Spent in Patient Care: (>than 50% of time spent in counselling and/or direct pt care on unit) . 50mins Coding Level of Care Code Acute County [employer] Judge for Chg Fwd Diagnoses New onset a-fib I48.91 Delusional disorder F22 Psychosis F29
[2020-07-20] MEDS: labetalol 200 mg Tablet PO ×2 (03:54→17:10)
[2020-07-20] MEDS: sodium chloride 0.9% 1,000 ML 75 ML IV (03:55)
[2020-07-20 04:12] LABS: Anion Gap 12.7 (5-19); Blood Urea Nitrogen 11 mg/dL (8-23); Calcium 9.4 mg/dL (8.5-10.5); Carbon Dioxide 28 mmol/L (22-29); Chloride 102 mmol/L (98-107); Creatinine Clr Calc Pharmacy 97.3753; Glomerular Filtration Rate 95.6 mL/min (90-130); Glucose 112 mg/dL (65-115); Osmolality Calculated 288 mOsm/kg (285-295); Potassium 3.7 mmol/L (3.5-5.1); Sodium 139 mmol/L (136-145)
[2020-07-20 04:15] LABS: Troponin 5 2HR 38.56 ng/L (0-15)
[2020-07-20 04:17] LABS: Troponin 5 2HR Delta -1.44 ABS# (0-10)
[2020-07-20 04:20] LABS: Magnesium 1.8 mg/dL (1.7-2.3); Thyroid Stimulating Hormone 1.42 uIU/mL (0.27-4.20)
--- NOTE | 2020-07-20 04:25 | PC.NURSE ---
Patient up to the bathroom to void at this time.
--- NOTE | 2020-07-20 06:27 | PC.NURSE ---
Patient has been running A-fib on and off on the monitor since I received care of him at 0245 this morning. Patient runs between 70 to 90s. Patient is alert to self and place he knows he is in the hospital but states that he should be in fdc. Patient has a sitter because in the ER he was confused and made suicidal comments to the staff. Patient was going to be transferred to [facility] but had episodes of tachycardia and low blood pressure so he was admitted for observation to monitor him. Patient has a sitter at bedside.
--- NOTE | 2020-07-20 06:45 | ECG_ITS ---
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1950 Requested By: Mara Holliday I Order Number: [id number] Reading MD: JANETTE CHE Measurements Intervals [place] Rate: 76 P: ME: QRS: -20 QRSD: 82 T: 104 QT: 454 QTc: 512 Interpretive Statements ATRIAL FLUTTER/TACHYCARDIA ST DEVIATION AND MODERATE T-WAVE ABNORMALITY, CONSIDER INFERIOR ISCHEMIA [-0.1+ mV T WAVE IN II/aVF] WARNING: DATA QUALITY MAY AFFECT INTERPRETATION Compared to ECG 07/20/2020 01:36:34 T-wave abnormality now present Possible ischemia now present ST (T wave) deviation no longer present Electronically Signed On 07-20-2020 18:17:52 TURRET LATHE MACHINIST by JANETTE CHE [id number]
--- NOTE | 2020-07-20 09:00 | USCV_ITS ---
Mollyjose eduardo Lalo Age: 70 Gender: M : 1950 Exam Date: 07/20/2020 13:25 Ordering Phys: Marcello Hathaway MD Technologist: Mague Sun Exam Location: [facility] [place] Indication: Atrial fibrillation, abnormal troponin BP: 104 / 71 HR: 82 Rhythm: Sinus Technical Quality: Suboptimal MEASUREMENTS (Male / Female) Normal Values 2D ECHO LV Diastolic Diameter PLAX 3.3 cm 4.2 - 5.9 / 3.9 - 5.3 cm LV Systolic Diameter PLAX 2.2 cm LV Chamber Size 3.2 cm IVS Diastolic Thickness 1.6 cm 0.6 - 1.0 / 0.6 - 0.9 cm IVS Systolic Thickness 2.2 cm LVPW Diastolic Thickness 1.6 cm 0.6 - 1.0 / 0.6 - 0.9 cm LVPW Systolic Thickness 1.9 cm RV Chamber Size 3.2 cm LVOT Diameter 2.0 cm LV Ejection Fraction 2D Teich 65.9 % LV Ejection Fraction MOD 2C 56.1 % LV Ejection Fraction 2C AL 62.7 % LA Diameter 2.6 cm LA Width 2.8 cm LA Height 5.1 cm RA Width 4.3 cm RA Height 6.4 cm Aorta at Sinotubular Diameter 2.8 cm M-MODE LV Diastolic Diameter MM 5.2 cm 4.2 - 5.9 / 3.9 - 5.3 cm LV Systolic Diameter MM 3.5 cm LV Ejection Fraction MM Teich 60.2 % IVS Diastolic Thickness MM 1.0 cm 0.6 - 1.0 / 0.6 - 0.9 cm IVS Systolic Thickness MM 1.2 cm LVPW Diastolic Thickness MM 0.9 cm 0.6 - 1.0 / 0.6 - 0.9 cm LVPW Systolic Thickness MM 1.4 cm RV Diastolic Diameter MM 1.0 cm Aortic Annulus Diameter 3.4 cm LA Ao Ratio MM 0.8 MV E Point Septal Separation 0.3 cm DOPPLER AV Peak Velocity 142.0 cm/s LVOT Peak Velocity 72.0 cm/s AV Area Cont Eq vti 1.7 cm squared AV Area Cont Eq pk 1.5 cm squared MV Area PHT 4.3 cm squared Mitral E to A Ratio 1.3 MV E' Velocity 36.0 cm/s Mitral E to MV E' Ratio 4.8 Mitral E to LV E' Lateral Ratio 4.4 Mitral E to LV E' Septal Ratio 5.3 TR Peak Velocity 195.0 cm/s TR Peak Gradient 15.2 mmHg TV Peak E Velocity 46.0 cm/s FINDINGS Left Ventricle Normal left ventricular cavity size. Normal left ventricular systolic function. No regional wall motion abnormalities. Left ventricular ejection fraction is estimated at 60 %. Grade II/IV diastolic dysfunction, moderately elevated filling pressures. Right Ventricle The right ventricle is normal in size and function. RVSP could not be calculated due to incomplete tricuspid regurgitation velocity profile. Right Atrium The right atrium is normal in size. Left Atrium The left atrium is normal in size. Mitral Valve Structurally normal mitral valve without significant stenosis or prolapse. There is no mitral regurgitation. Aortic Valve Moderate aortic valve calcification. Mild aortic valve stenosis, mean gradient 4.6 mmHg, MARILY 1.7 cm squared. Trace aortic valve regurgitation. Tricuspid Valve Structurally normal tricuspid valve without significant stenosis or regurgitation. Pulmonary artery systolic pressure is normal. Pulmonic Valve Structurally normal pulmonic valve without significant stenosis. There is no pulmonic regurgitation. Pericardium Normal pericardium without effusion. Aorta Normal ascending aorta dimension. CONCLUSIONS 1-Normal left ventricular cavity size. Normal left ventricular systolic function. No regional wall motion abnormalities. Left ventricular ejection fraction is estimated at 60 %. Grade II/IV diastolic dysfunction, moderately elevated filling pressures. 2-Moderate aortic valve calcification. Mild aortic valve stenosis, mean gradient 4.6 mmHg, MARILY 1.7 cm squared. Trace aortic valve regurgitation. 3-There is no pericardial effusion. 4-The right ventricle is normal in size and function. RVSP could not be calculated due to incomplete tricuspid regurgitation velocity profile. 5-Right atrial pressure is around 5 mm of mercury. 6-There are no prior echocardiogram studies to compare. Camelia Quezada MD (Electronically Signed) Final Date: 20 July 2020 15:47 S
[2020-07-20] MEDS: potassium chloride ER 20 mEq Tablet PO (11:02)
[2020-07-20] MEDS: aspirin 81 mg EC Tablet PO (11:02)
[2020-07-20] MEDS: atorvastatin 40 mg Tablet 20 MG PO (11:02)
[2020-07-20] MEDS: cilostazol 100 mg Tablet PO (11:02)
[2020-07-20] MEDS: tamsulosin 0.4 mg Capsule PO (11:02)
--- NOTE | 2020-07-20 12:43 | P.CONIM_ITS ---
Providers/Reason for Consult Consulting Physican/Specialty*: Emerita Mercado DO Reason for Consult*: Paranoid delusions, depression Attending Physician: Marcello Hathaway Primary Care Provider: Olaf Swain DO Psych Consult HPI History of Present Illness Lalo Marr is a 70 year old male with history of PTSD, AAA with scheduled repair, worsening delusions, paranoia presenting to the emergency department after being seen by this interviewer 2 days ago for same complaint of paranoid delusions and PTSD symptoms. Patient was started on risperidone 0.25 mg twice daily and mirtazapine 7.5 mg at bedtime but presented back to the emergency department with worsening delusions after going to his insurance company and stating that they needed to call the police to turn himself in for being a fraud. Per 's report on chart review, patient did not sleep the evening b efore with increased restlessness and delusions. Patient had an episode of hypotension and increased heart rate with atrial fibrillation while being observed in the emergency department and admitted to the medical floor. His mirtazapine was continued but risperidone was put on hold at the time of admission. Patient's presentation is largely unchanged from a couple days ago. Continues to report depressive symptoms related to his ongoing trauma related symptoms. Continues to have some difficulty with memory and difficulty recalling recent events making him a difficult historian. Continues to report paranoid delusions but states that he feels safe here in the hospital. Denies any auditory or visual hallucinations. Reports that he was having some suicidal thoughts when he first got to the hospital yesterday but currently denies any suicidal thoughts or thoughts about self-harm. Patient reports that he slept poorly last evening and did not get much sleep. He continues to report feeling hypervigilant which is exacerbated by his paranoid delusions. He reports that his appetite has been okay. Meds Current Medications: Current Medications Generic Name Dose Route Start Last Admin Trade Name Freq PRN Reason Stop Dose Admin Aspirin 81 mg 07/20/20 12:00 07/20/20 11:02 Aspirin 81 Mg Ec Tablet PO 81 mg DAILY@1200 [facility] Administration Atorvastatin Calci um 20 mg 07/20/20 12:00 07/20/20 11:02 Atorvastatin 40 Mg Tablet PO 20 mg DAILY@1200 [facility] Administration Cilostazol 100 mg 07/20/20 12:00 07/20/20 11:02 Cilostazol 100 M g Tablet PO 100 mg DAILY@1200 [facility] Administration Labetalol HCl 200 mg 07/20/20 03:30 07/20/20 09:29 Labetalol 200 Mg Tablet PO Not Given BID [facility] Potassium Chloride 20 meq 07/20/20 12:00 07/20/20 11:02 Potassium Chlori de Er 20 Meq Table t PO 20 meq DAILY@1200 [facility] Administration Tamsulosin HCl 0.4 mg 07/20/20 12:00 07/20/20 11:02 Tamsulosin 0.4 M g Capsule PO 0.4 mg DAILY@1200 [facility] Administration PFSH NPU PFSH: Medical History AAA (abdominal aortic aneurysm) Adjustment disorder with depressed mood Anxiety BPH (benign prostatic hyperplasia) Diverticulosis Hypercholesterolemia Hypertension OCD (obsessive compulsive disorder) (~2013) PTSD (post-traumatic stress disorder) Surgical History History of colonoscopy (~2013) diverticulosis S/P bilateral inguinal hernia repair Status post surgical removal of malignant neoplasm of skin Family History Family/Other Cancer brother- colon cancer Hypertension brother Mother Cancer colon cancer Father Diabetes Denies family history of Anesthesia complication Bleeding disorder Social History Smoking and tobacco status: current every day smoker cigarettes Packs smoked per day: 0.5 Years cigarettes smoked: 50 Second hand smoke exposure: No Alcohol intake: never Desire information about alcohol rehabilitation?: No Adopted: No Caregiver/support person: Yes Lives independently: Yes Household members: spouse Housing: House Marital status: service: Yes branch: [employer] Current occupational status: retired Current occupational exposures/hazards: No Pets and animals: No History of recent travel: No Sexually active: No Current gender identity: Male Meron/Sikhism: Faith Special meron needs: No Agree to transfusion: No Financial difficulty paying for basics: Decline to Answer Other Psychiatric History: Other Psychiatric History: No change from psychiatric consultation completed 07/19/2020 Mental Status Exam MSE Comments: Appears stated age, lying in bed, appropriately dressed, calm, cooperative, interactive, good eye contact Psychomotor activity is neither increased nor decreased, no agitation Speech is normal rate and volume, spontaneous, fair articulation, not pressured I am okay, constricted affect, not labile Pleasantly confused, oriented to place, month, year, states that he has difficulty recalling events leading to his hospitalization Intellectual functioning appears to be average based on vocabulary, interview Memory and concentration are fair at best per interview Thought process, linear, no flight of ideas, no looseness of associations Thought content, delusions, does not appear to be attending to any internal stimuli, no suicidal or homicidal ideation Insight and judgment appear to be fair at best Vitals/I&O/Wt Last Vital Signs Temp 98.0 F 07/20/20 10:31 Pulse 76 07/20/20 10:31 Resp 21 H 07/20/20 10:31 BP 118/77 07/20/20 10:31 Pulse Ox 94 07/20/20 10:31 07/19/20 07/20/20 07/20/20 22:59 06:59 14:59 Intake Total 1000 / 1000 600 / 600 Balance 1000 / 1000 600 / 600 Weight last 48 hrs Weight 83.915 kg A&P Assessment and plan (1) Delusional disorder: Status: Acute (2) PTSD (post-traumatic stress disorder): Status: Acute Additional A&P Information Continues to have paranoid delusions causing significant impairment, PTSD symptoms, reports ongoing, intermittent passive suicidal ideation with no active intent or plan, presented to emergency department had hypotensive episode and atrial fibrillation. Patient would benefit from psychiatric hospitalization and geriatric inpatient psychiatry after medical stabilization Psychiatry will continue to follow during this hospitalization CONTINUE to hold risperidone CONTINUE mirtazapine 7.5 mg at bedtime Attestations NPU Medical Necessity Statement*: Patient continues to require hospitalization for medical stabilization Time Spent in Patient Care: Greater than 35 minutes (>than 50% of time spent in counselling and/or direct pt care on unit) . Coding Level of Care Code Acute Resident Service Coordinator for Silvino Mariee Diagnoses Delusional disorder F22 PTSD (post-traumatic stress disorder) F43.10
--- NOTE | 2020-07-20 14:34 | P.PN_ITS ---
Subjective Subjective: Interval history: Doing okay. Denies any active complaints. Denies chest pain or palpitations. No nausea or vomiting. No fevers or chills. No abdominal pain. No dizziness or lightheadedness. Medications: Reviewed: Yes Medication Review Details: Generic Name Dose Route Start Last Admin Trade Name Caitie PRN Reason Stop Dose Admin Aspirin 81 mg 07/20/20 12:00 07/20/20 11:02 Aspirin 81 Mg Ec Tablet PO 81 mg DAILY@1200 [facility] Administration Atorvastatin Calci um 20 mg 07/20/20 12:00 07/20/20 11:02 Atorvastatin 40 Mg Tablet PO 20 mg DAILY@1200 [facility] Administration Cilostazol 100 mg 07/20/20 12:00 07/20/20 11:02 Cilostazol 100 M g Tablet PO 100 mg DAILY@1200 [facility] Administration Labetalol HCl 200 mg 07/20/20 03:30 07/20/20 09:29 Labetalol 200 Mg Tablet PO Not Given BID [facility] Potassium Chloride 20 meq 07/20/20 12:00 07/20/20 11:02 Potassium Chlori de Er 20 Meq Table t PO 20 meq DAILY@1200 [facility] Administration Tamsulosin HCl 0.4 mg 07/20/20 12:00 07/20/20 11:02 Tamsulosin 0.4 M g Capsule PO 0.4 mg DAILY@1200 [facility] Administration Vitals/I&O/Wt Last Vital Signs Temp 98.0 F 07/20/20 10:31 Pulse 76 07/20/20 10:31 Resp 21 H 07/20/20 10:31 BP 118/77 07/20/20 10:31 Pulse Ox 94 07/20/20 10:31 07/19/20 07/20/20 07/20/20 22:59 06:59 14:59 Intake Total 1000 / 1000 600 / 600 Balance 1000 / 1000 600 / 600 Weight last 48 hrs Weight 83.915 kg Physical Exam Narrative: EXAM NARRATIVE: Awake alert oriented. No acute distress. Reports resolved hallucinations. Denies suicidal or homicidal thoughts. Skin is warm and dry. Moist mucous membranes. Neck supple. No JVD Lungs clear to auscultation bilaterally. Heart S1, S2, irregular Abdomen soft, nontender, bowel sounds are present Extremities no edema cyanosis or calf tenderness bilaterally Neuro exam is nonfocal. Normal speech. No facial asymmetry. Eyes Arian, extraocular muscles are intact. Data : 07/19/20 17:05 07/20/20 03:08 A&P Assessment and plan (1) New onset a-fib: Status: Acute (2) Delusional disorder: Status: Acute (3) Psychosis: Status: Acute Additional A&P Information New onset A. fib Patient currently desponded very well to Cardizem IV push If his heart rate stays above 100 I would start Cardizem drip considering history of AAA with ideal heart rate between 70 to 80s and systolic blood pressure less than 120mmhg I would not start him on anticoagulating agent at this point due to progression of AAA, he is awaiting AAA repair by Dr. Manzano ([facility]), however his [id number] is 5, has bled score 2 Abnormal troponin most likely secondary to tachyarrhythmia patient is not complaining of active chest pain no ischemic or infarct changes seen on EKG Would recommend discussing anticoagulating option with Dr. Manzano as well Delusional disorder with psychosis Patient is showing paranoia, recently mirtazapine and risperidone was started by psychiatrist Patient has no suicidal ideation but stated he rather has his AAA rupture instead of going for the repair I would continue mirtazapine for now only and hold risperidone He will need psych consult as well in the morning Dehydration with hypokalemia Potassium repleted, patient blood pressure improved after 1 L normal saline resuscitation I would continue normal saline maintenance rate overnight Full code DVT prophylaxis SCDs, avoiding because of AAA dimensions, he is at risk of decompensation Cardiac diet [place]\ Atrial fibrillation. Received Cardizem and currently is rate controlled. On labetalol p.o. Continue current management. As far as anticoagulation is concerned, I am worried about his psychiatric illness and him being able to take his medications as prescribed. This is major limiting factor. Echo is pending. Cardiology eval and follow-up either inpatient or outpatient. Mild elevation of troponin. Probably secondary to above. No chest pain. Continue close monitoring. Large AAA. No evidence of complications. Discussed with Dr. Manzano. From his standpoint anticoagulation is okay. Outpatient follow-up Severe psychiatric illness and acute psychosis. Will be seen by psychiatrist Dr. Taylor Continue current management. Continue one-on-one. Dehydration. Resolved. Continue oral hydration. Hypokalemia. Replace and monitor. DVT prophylaxis. Teds and SCDs. Will start prophylactic Lovenox The plan of care was discussed with the patient. He verbalized understanding and agreement. Attestations Medical Necessity Statement*: Pending psychiatric evaluation. A. fib work-up is in progress. 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
[2020-07-20] MEDS: mirtazapine 15 mg Tablet 7.5 MG PO (23:06)
[2020-07-21 03:05] VITALS: BP 111/69; PULSE 77; RESP 22; TEMP 36.6; O2SAT 94
[2020-07-21] MEDS: OLANZapine 10 mg VIAL 5 MG IM (03:55)
[2020-07-21 03:59] LABS: Basophils # 0.1 10^3/uL (0.0-0.1); Basophils % 0.8 %; Eosinophils # 0.3 10^3/uL (0.0-0.8); Eosinophils % 3.1 %; Hematocrit 47.2 % (42.0-52.0); Hemoglobin 15.7 g/dL (11.7-16.6); Lymphocytes # 3.5 10^3/uL (0.8-4.8); Lymphocytes % 34.4 %; Mean Corpuscular HGB Conc 33.3 g/dL (30.0-36.0); Mean Corpuscular Hemoglobin 29.1 pg (28.0-34.0); Mean Corpuscular Volume 87.4 fL (80-94); Mean Platelet Volume 8.7 fL (7.4-10.4); Monocytes # 0.8 10^3/uL (0.2-0.9); Monocytes % 7.8 %; Neutrophils # 5.45 10^3/uL (1.8-7.7); Neutrophils % 53.7 %; Nucleated Red Blood Cells % 0 %; Platelet Count 263 10^3/cmm (130-400); Red Cell Distribution Width 14.6 % (12.1-15.1); White Blood Count 10.1 10^3/uL (4.0-10.0)
[2020-07-21 04:18] LABS: Alanine Aminotransferase 13 U/L (0-41); Albumin Level 3.3 g/dL (3.5-5.2); Alkaline Phosphatase 71 IU/L (40-130); Anion Gap 10.4 (5-19); Aspartate Amino Transferase 14 U/L (0-40); Blood Urea Nitrogen 25 mg/dL (8-23); Calcium 9.2 mg/dL (8.5-10.5); Carbon Dioxide 30 mmol/L (22-29); Chloride 104 mmol/L (98-107); Creatinine Clr Calc Pharmacy 77.9003; Globulin 2.8 g/dL (1.3-4.6); Glomerular Filtration Rate 73.9 mL/min (90-130); Glucose 123 mg/dL (65-115); Osmolality Calculated 298 mOsm/kg (285-295); Potassium 3.4 mmol/L (3.5-5.1); Sodium 141 mmol/L (136-145); Total Bilirubin 0.6 mg/dL (0.15-1.2); Total Protein 6.1 g/dL (6.6-8.7)
[2020-07-21 04:28] LABS: Procalcitonin 0.05 ng/mL (0-0.5)
[2020-07-21 04:39] LABS: Chol HDL Ratio 2.56 mg/dL (1.0-5.00); Cholesterol 141 mg/dL (0-200); HDL Cholesterol 55 mg/dL (60-100); LDL Cholesterol Calculated 70 mg/dL (50-129); LDL HDL Ratio 1.27 RATIO (0.00-3.22); Triglycerides 82 mg/dL (0-150)
--- NOTE | 2020-07-21 05:06 | PC.NURSE ---
Addendum entered by Jeana Michael RN 07/21/20 05:30: had another bradycardic episode appx [id number], notified Dr Ruiz who ordered to hold labetalol Original Note: late entry, appx. [id number] pt had bradycardic episode with HR in 20's, shortly afterward pt c/o brief episode of chest pain which resolved quickly, notified Dr Ruiz who was on the floor and also showed tele strip with pauses. no new orders given
--- NOTE | 2020-07-21 05:12 | PC.NURSE ---
pt has been agitated several times through the night, saying he thinks he has been hacked. At one point he got up out of bed and attemped to push the sitter out of the way, saying he was leaving, that we were taking advantage of him and trying to steal his information. He was also very upset that staff were not wearing gloves. Explained to pt that staff wore gloves when doing patient care, but were not touching him. Pt was able to be redirected and went back to bed. Pt had several episodes of confusion throughout the night and later agreed to be given prn zyprexa shot.
--- NOTE | 2020-07-21 05:30 | PM.EVENT ---
Event Note Event Note: I was notified by the nurse regarding the abnormal rhythm patient overnight has been going in and out of atrial flutter rhythm at one point bradycardia was also noticed, his P waves are showing different morphologies concern for multifocal atrial tachycardia. I have asked his nurse to hold labetalol for now. Hemodynamically stable, he is not hypoxic no active complaints. I have asked nurse to keep Zoll pads at the bedside as well, will replete his potassium it was 3.4, magnesium is 2.0 P waves are showing ectopic atrial beat pattern
[2020-07-21 06:00] VITALS: PULSE 80
--- NOTE | 2020-07-21 06:24 | PC.NURSE ---
pt had another episode of chest pain, stating it feels like I'm having a heart attack. Notified Dr Ruiz who ordered 2 mg morphine IVP and came to see pt. Pt stated he was doing ok and refused morphine and potassium. Notified Dr Ruiz that pt had refused meds.
--- NOTE | 2020-07-21 08:00 | PC.NURSE ---
Patient anxious and confused at time of assessment. Patient only oriented to person and time of day. Patient states he is concerned about his and daughter. States he needs to get to them because they are going to if he doesn't. Patient became tearful and said to nurse, you girls are so nice. I don't deserve any of it. I'm a bad person, I deserve to go to group home. Maybe they will take me to penitentiary and put me in front of a firing squad. I want my to be quick. SI was assessed. Patient states he does have a few different plans on how he could commit suicide but has never acted on it. Patient calm, resting in bed. 1:1 sitter at bedside. Environment safe. Nurse to continue to monitor.
--- NOTE | 2020-07-21 10:11 | PC.CHAP ---
Pastoral Care Encounter/Spiritual Assessment Type of Contact [] Declined education and outreach coordinator visit [] Patient/Family/Request visit [] Outpatient visit [] Follow-up visit [] Physician referral [] Code/Alert [x] Routine visit [] Staff referral [] Actively dying [] Patient sleeping [] Family support [] [] Out of room [] Palliative care [] [] Receiving care in room [] Pre-surgical visit [] Trauma [] Long length of stay [] ICU visit [] Other: Relational/Emotional Strength [x] Patient feels connected with others/family/visitors/staff [] Distress [] Loneliness/isolation [] Abandonment Spirituality of Patient [x] Person of Meron [] Attends [employer] of their [place] [x] Believes in Prayer [] Reads Bible or Yazidism materials [] There are Spiritual issues to be addressed Ball Sorter Interventions [x] Prayer [x] Active listening [x] Non-anxious presence [x] Spiritual/emotional support [] Crisis/trauma care [] Spiritual counseling [] Bereavement support [] Provided bereavement packet [] Provided Bible/devotional materials [] Provided toy/stuffed animal, coloring book to patient or family member [] Provided Communion [] Anointing/[place] [] Salvation [x] Completed spiritual assessment [] Other: Impact on Illness or Injury [] Angry [] Fearful [] Anxious [] Often cries [] Exhaustion [] Unable to work [] Unable to attend restorationism [] Unable to walk/stand [] Unable to read [] Unable to drive [] Unable to eat/drink [] Unable to sleep [] Unable to be with family [] Patient intubated [] Other: Summary Chaplains talked to and prayed with Patient. Time spent with patient 7 minutes.
[2020-07-21 10:54] VITALS: BP 132/64; PULSE 81; RESP 20; O2SAT 96
--- NOTE | 2020-07-21 10:58 | PC.NURSE ---
up on rounding pt stated that he didnt want to be around any more he wants to
--- NOTE | 2020-07-21 11:23 | P.PN_ITS ---
Subjective Subjective: Interval history: Patient is awake and alert. Slightly confused. Speech is a little disorganized. Denies any active complaints. No chest pain or shortness of breath. No nausea or vomiting. No fever or chills. Medications: Reviewed: Yes Medication Review Details: Generic Name Dose Route Start Last Admin Trade Name Caitie PRN Reason Stop Dose Admin Aspirin 81 mg 07/20/20 12:00 07/20/20 11:02 Aspirin 81 Mg Ec Tablet PO 81 mg DAILY@1200 PENDING SALE TO [facility] Administration Atorvastatin Calci um 20 mg 07/20/20 12:00 07/20/20 11:02 Atorvastatin 40 Mg Tablet PO 20 mg DAILY@1200 PENDING SALE TO [facility] Administration Cilostazol 100 mg 07/20/20 12:00 07/20/20 11:02 Cilostazol 100 M g Tablet PO 100 mg DAILY@1200 PENDING SALE TO [facility] Administration Labetalol HCl 200 mg 07/20/20 03:30 07/20/20 17:10 Labetalol 200 Mg Tablet PO 200 mg BID SHELLY Administration Mirtazapine 7.5 mg 07/21/20 00:00 07/20/20 23:06 Mirtazapine 15 M g Tablet PO 7.5 mg DAILY@0000 PENDING SALE TO [facility] Administration Olanzapine 5 mg 07/20/20 03:29 07/21/20 03:55 Olanzapine 10 Mg Vial IM 5 mg Q8H PRN Administration SEVERE AGITATION Potassium Chloride 20 meq 07/20/20 12:00 07/20/20 11:02 Potassium Chlori de Er 20 Meq Table t PO 20 meq DAILY@1200 PENDING SALE TO [facility] Administration Tamsulosin HCl 0.4 mg 07/20/20 12:00 07/20/20 11:02 Tamsulosin 0.4 M g Capsule PO 0.4 mg DAILY@1200 PENDING SALE TO [facility] Administration Vitals/I&O/Wt Last Vital Signs Temp 97.8 F 07/21/20 03:05 Pulse 81 07/21/20 10:54 Resp 20 H 07/21/20 10:54 BP 132/64 07/21/20 10:54 Pulse Ox 96 07/21/20 10:54 07/20/20 07/21/20 07/21/20 22:59 06:59 14:59 Intake Total 240 / 840 120 / 120 Output Total Balance 239 / 839 120 / 120 Weight last 48 hrs Weight 83.915 kg Physical Exam Narrative: EXAM NARRATIVE: Awake and alert. No acute distress. Skin is warm and dry. Moist mucous membranes. Neck supple. No JVD Lungs clear to auscultation bilaterally. Heart S1, S2, irregular Abdomen soft, nontender, bowel sounds are present Extremities no edema cyanosis or calf tenderness bilaterally Neuro exam is nonfocal. Normal speech. No facial asymmetry. Eyes Arian, extraocular muscles are intact. Data : 07/21/20 03:42 07/21/20 03:42 Other Labs: Laboratory Results WBC 10.1 10^3/uL (4.0-10.0) H 07/21/20 03:42 RBC 5.40 10^6/uL (4.1-5.3) H 07/21/20 03:42 Hgb 15.7 g/dL (11.7-16.6) 07/21/20 03:42 Hct 47.2 % (42.0-52.0) 07/21/20 03:42 MCV 87.4 fL (80-94) 07/21/20 03:42 MCH 29.1 pg (28.0-34.0) 07/21/20 03:42 MCHC 33.3 g/dL (30.0-36.0) 07/21/20 03:42 RDW 14.6 % (12.1-15.1) 07/21/20 03:42 Plt Count 263 10^3/cmm (130-400) 07/21/20 03:42 MPV 8.7 fL (7.4-10.4) 07/21/20 03:42 Neut % (Auto) 53.7 % 07/21/20 03:42 Lymph % (Auto) 34.4 % 07/21/20 03:42 [place] % (Auto) 7.8 % 07/21/20 03:42 Eos % (Auto) 3.1 % 07/21/20 03:42 Baso % (Auto) 0.8 % 07/21/20 03:42 Neut # (Auto) 5.45 10^3/uL (1.8-7.7) 07/21/20 03:42 Lymph # (Auto) 3.5 10^3/uL (0.8-4.8) 07/21/20 03:42 [place] # (Auto) 0.8 10^3/uL (0.2-0.9) 07/21/20 03:42 Eos # (Auto) 0.3 10^3/uL (0.0-0.8) 07/21/20 03:42 Baso # (Auto) 0.1 10^3/uL (0.0-0.1) 07/21/20 03:42 Nucleated RBC % (auto) 0 % 07/21/20 03:42 Nucleated RBCs # 0.0 /100WBC 07/21/20 03:42 Sodium 141 mmol/L (136-145) 07/21/20 03:42 Potassium 3.4 mmol/L (3.5-5.1) L 07/21/20 03:42 Chloride 104 mmol/L (98-107) 07/21/20 03:42 Carbon Dioxide 30 mmol/L (22-29) H 07/21/20 03:42 Anion Gap 10.4 (5-19) 07/21/20 03:42 BUN 25 mg/dL (8-23) H 07/21/20 03:42 Creatinine 1.0 mg/dL (0.7-1.2) 07/21/20 03:42 GFR Calculation 73.9 mL/min (90-130) L 07/21/20 03:42 Glucose 123 mg/dL (65-115) H 07/21/20 03:42 Calculated Osmolality 298 mOsm/kg (285-295) H 07/21/20 03:42 Lactic Acid 1.1 mmol/L (0.5-2.2) 07/20/20 00:58 Calcium 9.2 mg/dL (8.5-10.5) 07/21/20 03:42 Magnesium 2.0 mg/dL (1.7-2.3) 07/21/20 03:42 Total Bilirubin 0.6 mg/dL (0.15-1.2) 07/21/20 03:42 AST 14 U/L (0-40) 07/21/20 03:42 ALT 13 U/L (0-41) 07/21/20 03:42 Alkaline Phosphatase 71 IU/L (40-130) 07/21/20 03:42 Troponin T Baseline 40 ng/L (0-15) H 07/20/20 00:58 Troponin T 120 Minute 38.56 ng/L (0-15) H 07/20/20 03:08 Delta Troponin T -1.44 ABS# (0-10) L 07/20/20 03:08 Troponin T Hi Sens 6Hr 39.10 ng/L (0-15) H 07/20/20 06:42 Troponin T Hi Sens 6Hr Delta -0.90 ng/L (0-12) L 07/20/20 06:42 Total Protein 6.1 g/dL (6.6-8.7) L 07/21/20 03:42 Albumin 3.3 g/dL (3.5-5.2) L 07/21/20 03:42 Globulin 2.8 g/dL (1.3-4.6) 07/21/20 03:42 Triglycerides 82 mg/dL (0-150) 07/21/20 03:42 Cholesterol 141 mg/dL (0-200) 07/21/20 03:42 LDL Cholesterol, Calc 70 mg/dL (50-129) 07/21/20 03:42 HDL Cholesterol 55 mg/dL (60-100) L 07/21/20 03:42 LDL/HDL Ratio 1.27 RATIO (0.00-3.22) 07/21/20 03:42 Cholesterol/HDL Ratio 2.56 mg/dL (1.0-5.00) 07/21/20 03:42 Procalcitonin 0.05 ng/mL (0-0.5) 07/21/20 03:42 TSH 1.42 uIU/mL (0.27-4.20) 07/20/20 03:08 Urine Color Yellow (Yellow) 07/19/20 22:30 Urine Appearance Clear (CLEAR) 07/19/20 22:30 Urine pH 7 (5-7) 07/19/20 22:30 Ur Specific [place] 1.010 (1.005-1.030) 07/19/20 22:30 Urine Protein Neg (Negative) 07/19/20 22:30 Urine Glucose (UA) Norm (Normal) 07/19/20 22:30 Urine Ketones Negative (Negative) 07/19/20 22:30 Urine Blood Trace (Negative) H 07/19/20 22:30 Urine Nitrate Negative (Negative) 07/19/20 22:30 Urine Bilirubin Neg (Negative) 07/19/20 22:30 Urine Urobilinogen Norm mg/dL (Negative) 07/19/20 22:30 Ur Leukocyte Esterase Negative (Negative) 07/19/20 22:30 Urine RBC 5-10 /hpf (0-2) H 07/19/20 22:30 Urine WBC 0-4 /hpf (0-5) H 07/19/20 22:30 Ur Squamous Epith Cells 0-4 /hpf (0-5) H 07/19/20 22:30 Amorphous Sediment Not Reportable 07/19/20 22:30 Urine Bacteria Trace /hpf (NONE) 07/19/20 22:30 Salicylates < 0.3 mg/dL (3-10) L 07/19/20 17:05 Urine Opiates Screen Negative ng/mL (Negative) 07/19/20 17:25 Acetaminophen < 5.0 ug/mL (10-30) L 07/19/20 17:05 Ur Barbiturates Screen Negative ng/mL (Negative) 07/19/20 17:25 Ur Phencyclidine Scrn Negative ng/mL (Negative) 07/19/20 17:25 Ur Amphetamines Screen Negative ng/mL (Negative) 07/19/20 17:25 U Benzodiazepines Scrn Negative ng/mL (Negative) 07/19/20 17:25 Urine Cocaine Screen Negative ng/mL (Negative) 07/19/20 17:25 U Marijuana (THC) Screen Negative ng/mL (Negative) 07/19/20 17:25 Ethyl Alcohol < 10 mg/dL (0-10) 07/19/20 17:05 SARS-CoV-2 Ag (Rapid) Negative (Negative) 07/19/20 17:37 Impressions Chest X-Ray 07/19/20 22:23 IMPRESSION: No acute findings. Abdomen/Pelvis CTA 07/19/20 23:02 IMPRESSION: 1. There is stable aneurysmal dilatation of the infrarenal abdominal aorta today measuring 4.3 cm transverse dimension by 4.6 cm AP dimension by 7.4 cm craniocaudal dimension. There is no evidence for dissection or extravasation. 2. Otherwise stable CT of the abdomen and pelvis Radiation Dose CTDIVOL = (mGy): DLP = 742.3~742.3 (mGy-cm) Chest CTA 07/19/20 23:39 IMPRESSION: 1. There is no evidence for pulmonary emboli. 2. Evidence of prior granulomatous exposure 3. Small hiatal hernia 4. Stable bilateral simple renal cysts. 5. Prominent gallstone Radiation Dose CTDIVOL = (mGy): DLP = 599.85 (mGy-cm) Gallbladder Ultrasound 07/20/20 00:32 IMPRESSION: 1. Prominent gallstone within the gallbladder neck. There are no findings to suggest cholecystitis. 2. Aneurysmal dilatation of the infrarenal abdominal aorta measuring 4.2 cm diameter correlates with the CT examination of 06/18/2021. 3. There are 2 simple right renal cysts, the largest seen in the lower pole measuring 2.5 cm. A&P Assessment and plan (1) New onset a-fib: Status: Acute (2) Delusional disorder: Status: Acute (3) Psychosis: Status: Acute Additional A&P Information New onset A. fib Patient currently desponded very well to Cardizem IV push If his heart rate stays above 100 I would start Cardizem drip considering history of AAA with ideal heart rate between 70 to 80s and systolic blood press ure less than 120mmhg I would not start him on anticoagulating agent at this point due to progression of AAA, he is awaiting AAA repair by Dr. Manzano ([facility]), however his [id number] is 5, has bled score 2 Abnormal troponin most likely secondary to tachyarrhythmia patient is not complaining of active chest pain no ischemic or infarct changes seen on EKG Would recommend discussing anticoagulating option with Dr. Manzano as well Delusional disorder with psychosis Patient is showing paranoia, recently mirtazapine and risperidone was started by psychiatrist Patient has no suicidal ideation but stated he rather has his AAA rupture instead of going for the repair I would continue mirtazapine for now only and hold risperidone He will need psych consult as well in the morning Dehydration with hypokalemia Potassium repleted, patient blood pressure improved after 1 L normal saline resuscitation I would continue normal saline maintenance rate overnight Full code DVT prophylaxis SCDs, avoiding because of AAA dimensions, he is at risk of decompensation Cardiac diet [place] Atrial fibrillation. Received Cardizem and currently the rate is controlled. Recurrent arrhythmia and episode of bradycardia is described by the night doctor. ? Tachybradycardia syndrome. On labetalol p.o. Continue current management. Requesting cardiology evaluation by Dr. Quezada. I appreciate his input. Will consider anticoagulation after cardiac eval. I think if he is discharged to geriatric psychiatric unit we can expect that his anticoagulation will be managed by the doctors there. Mild elevation of troponin. Probably secondary to above. No chest pain. Large AAA. No evidence of complications. Discussed with Dr. Manzano. From his standpoint anticoagulation is okay. Outpatient follow-up. Severe psychiatric illness and acute psychosis, delusional disorder. Appreciate 's evaluation and recommendations. Dehydration. Resolved. Continue oral hydration. Hypokalemia. Replace and monitor. DVT prophylaxis. Teds and SCDs. Will start prophylactic Lovenox Cholelithiasis. Symptomatic. Outpatient evaluation and follow-up with surgeon could be considered. Likely hematuria. We will repeat his UA. If confirmed will consider additional testing which can be done in outpatient settings. The plan of care was discussed with the patient. He verbalized understanding and agreement. Attestations Medical Necessity Statement*: Continuing cardiac evaluations. Coding Level of Care Code Acute [place] Mold Maker for g Fwd Diagnoses New onset a-fib I48.91 Delusional disorder F22 Psychosis F29
[2020-07-21] MEDS: enoxaparin 40 mg/0.4 mL Syringe SUBCUT (12:27)
[2020-07-21] MEDS: tamsulosin 0.4 mg Capsule PO (12:27)
[2020-07-21] MEDS: atorvastatin 40 mg Tablet 20 MG PO (12:28)
[2020-07-21] MEDS: cilostazol 100 mg Tablet PO (12:28)
[2020-07-21] MEDS: aspirin 81 mg EC Tablet PO (12:28)
[2020-07-21] MEDS: potassium chloride ER 20 mEq Tablet PO (12:28)
--- NOTE | 2020-07-21 15:03 | P.CONIM_ITS ---
Providers/Reason For Consult Consulting Physican/Specialty*: Cardiology Reason for Consult*: Atrial fibrillation, atrial flutter with variable block. Intermittent pauses Attending Physician: Marcello Hathaway Primary Care Provider: Olaf Swain DO History of Present Illness History of Present Illness Lalo Marr is a 70 year old male past medical history significant for abdominal aortic aneurysm, peripheral vascular disease hypertension hyperlipidemia history psychiatric disorder admitted with psychosis paranoia and atrial fibrillation with rapid ventricle response. Patient was started on Cardizem drip in the night it was interpreted due to couple of less than 3-se cond pauses and bradycardia. It is the reason we have been asked to come and see him. Patient refused to wear telemetry today. I was able to review the telemetry he had 2 or 3 episodes of bradycardia with heart rate down to 40s while asleep and couple of episodes of less than 3-second pauses. He denies at the moment chest pain PND orthopnea abdominal pain presyncope syncope. Review of Systems Const: Denies: fever(s), chills or body aches Eyes: Denies: change in vision ENMT: Denies: throat pain Card: Denies: chest pain Resp: Denies: dyspnea GI: Denies: abdominal pain : Denies: flank pain Musc: Denies: neck pain or back pain Skin/Breast: Denies: rash Neuro: Denies: headache(s) Psych: Reports: anxiety, change in appetite, paranoia, memory loss, difficulty concentrating and auditory hallucinations; Denies: suicidal ideation or homicidal ideation Endo: Denies: polyuria Dennis/Lymph: Denies: easy bruising All/Imm: Denies: urticaria Meds/Allergies Home Medications and Allergies Home Medications Medication Instructions Recorded Confirmed Last Taken Type cholecalciferol (vitamin D3) 50 2,000 unit PO DAILY@119908/18/19 07/19/20 07/18/20 History mcg (2,000 unit) capsule omega-3 fatty acids 500 mg capsule 500 mg PO DAILY@119908/18/19 07/19/20 07/18/20 History tamsulosin 0.4 mg capsule 0.4 mg PO DAILY@119908/18/19 07/19/20 07/18/20 History aspirin 81 mg tablet,delayed 81 mg PO DAILY@119908/22/19 07/19/20 07/18/20 History release dextrin 3 gram/3.5 gram oral powder 2 tsp PO TID 08/22/19 07/19/20 07/18/20 History hydrochlorothiazide 25 mg tablet 25 mg PO DAILY@1200 08/22/19 07/19/20 07/18/20 History potassium chloride 20 mEq 20 meq PO DAILY@1200 08/22/19 07/19/20 07/18/20 History tablet,extended release cilostazol 100 mg tablet 100 mg PO DAILY@1200 tab 05/09/20 07/19/20 07/18/20 History pravastatin 80 mg tablet 40 mg PO DAILY@1200 tab 05/09/20 07/19/20 07/18/20 History amlodipine 7.5 mg PO DAILY@1200 07/19/20 07/19/20 07/18/20 History docusate sodium [Colace] 100 mg PO BID@1200,0000 07/19/20 07/19/20 07/18/20 History mirtazapine [Remeron] 7.5 mg PO DAILY@0000 07/19/20 07/19/20 07/19/20 History risperidone 0.25 mg PO BID@1200,0000 07/19/20 07/19/20 07/19/20 History Allergies Allergy/AdvReac Type Severity Reaction Status Date / Time No Known Allergies Allergy Verified 09/19/19 14:12 Current Medications Current Medications Generic Name Dose Route Start Last Admin Trade Name Freq PRN Reason Stop Dose Admin Aspirin 81 mg 07/20/20 12:00 07/21/20 12:28 Aspirin 81 Mg Ec Tablet PO 81 mg DAILY@1200 SHELLY Administration Atorvastatin Calcium 20 mg 07/20/20 12:00 07/21/20 12:28 Atorvastatin 40 Mg Tablet PO 20 mg DAILY@1200 SHELLY Administration Cilostazol 100 mg 07/20/20 12:00 07/21/20 12:28 Cilostazol 100 Mg Tablet PO 100 mg DAILY@1200 SHELLY Administration Enoxaparin Sodium 40 mg 07/21/20 11:45 07/21/20 12:27 Enoxaparin 40 Mg/0.4 Ml Syringe SUBCUT 40 mg Q24H SHELLY Administration Labetalol HCl 200 mg 07/20/20 03:30 07/20/20 17:10 Labetalol 200 Mg Tablet PO 200 mg BID SHELLY Administration Mirtazapine 7.5 mg 07/21/20 00:00 07/20/20 23:06 Mirtazapine 15 Mg Tablet PO 7.5 mg DAILY@0000 SHELLY Administration Olanzapine 5 mg 07/20/20 03:29 07/21/20 03:55 Olanzapine 10 Mg Vial IM 5 mg Q8H PRN Administration SEVERE AGITATION Potassium Chloride 20 meq 07/20/20 12:00 07/21/20 12:28 Potassium Chloride Er 20 Meq Tablet PO 20 meq DAILY@1200 SHELLY Administration Tamsulosin HCl 0.4 mg 07/20/20 12:00 07/21/20 12:27 Tamsulosin 0.4 Mg Capsule PO 0.4 mg DAILY@1200 SHELLY Administration Additional Medication Information Generic Name Dose Route Start Last Admin Trade Name Freq PRN Reason Stop Dose Admin Aspirin 81 mg 07/20/20 12:00 07/20/20 11:02 Aspirin 81 Mg Ec Tablet PO 81 mg DAILY@1200 SHELLY Administration Atorvastatin Calcium 20 mg 07/20/20 12:00 07/20/20 11:02 Atorvastatin 40 Mg Tablet PO 20 mg DAILY@1200 SHELLY Administration Cilostazol 100 mg 07/20/20 12:00 07/20/20 11:02 Cilostazol 100 Mg Tablet PO 100 mg DAILY@1200 SHELLY Administration Labetalol HCl 200 mg 07/20/20 03:30 07/20/20 17:10 Labetalol 200 Mg Tablet PO 200 mg BID SHELLY Administration Mirtazapine 7.5 mg 07/21/20 00:00 07/20/20 23:06 Mirtazapine 15 Mg Tablet PO 7.5 mg DAILY@0000 SHELLY Administration Olanzapine 5 mg 07/20/20 03:29 07/21/20 03:55 Olanzapine 10 Mg Vial IM 5 mg Q8H PRN Administration SEVERE AGITATION Potassium Chloride 20 meq 07/20/20 12:00 07/20/20 11:02 Potassium Chloride Er 20 Meq Tablet PO 20 meq DAILY@1200 SHELLY Administration Tamsulosin HCl 0.4 mg 07/20/20 12:00 07/20/20 11:02 Tamsulosin 0.4 Mg Capsule PO 0.4 mg DAILY@1200 SHELLY Administration PFSH Acute PFSH: Medical History AAA (abdominal aortic aneurysm) Adjustment disorder with depressed mood Anxiety BPH (benign prostatic hyperplasia) Diverticulosis Hypercholesterolemia Hypertension OCD (obsessive compulsive disorder) (~2013) PTSD (post-traumatic stress disorder) Surgical History History of colonoscopy (~2013) diverticulosis S/P bilateral inguinal hernia repair Status post surgical removal of malignant neoplasm of skin Family History Family/Other Cancer brother- colon cancer Hypertension brother Mother Cancer colon cancer Father Diabetes Denies family history of Anesthesia complication Bleeding disorder Social History Smoking and tobacco status: current every day smoker cigarettes Packs smoked per day: 0.5 Years cigarettes smoked: 50 Second hand smoke exposure: No Alcohol intake: never Desire information about alcohol rehabilitation?: No Adopted: No Caregiver/support person: Yes Lives independently: Yes Household members: spouse Housing: House Marital status: service: Yes branch: [employer] Current occupational status: retired Current occupational exposures/hazards: No Pets and animals: No History of recent travel: No Sexually active: No Current gender identity: Male Meron/Quaker: Rastafarian Special meron needs: No Agree to transfusion: No Financial difficulty paying for basics: Decline to Answer Dietary Habits: Current diet type/program: low carbohydrate Caffeine: Yes High-fat food intake: 2 times daily Daily servings fruits/vegetables: 0-1 Daily servings of milk/calcium: 0-1 Eating out: rarely or never Reads food labels: usually or always During the past year weight has: remained stable Exercise: What type of physical activity do you participate in?: walking Physical activity functional status: independent ambulation How many days of moderate to strenuous exercise, like a brisk walk, did you do in the last 7 days: 2 Safety: Seatbelt use: always Helmet use: No Drive intoxicated or ride with intoxicated steam train driver?: never Home Safety: Water heater temperature set < 120 degrees: No Working smoke detector in home: Yes Fire extinguisher in home: No Carbon monoxide detector in home: Yes Firearms in home: Yes Personal Safety: Do you feel safe at home: No Victim of physical abuse: No Victim of emotional abuse: No Victim of sexual abuse: No Would you like help information on resources?: No NHANES Social Connection/Isolation: Are you now , , , , never or living with a partner?: In a typical week, how many times do you talk on the telephone with family, friends, or neighbors?: Three or More Times per Week How often do you get together with friends or relatives?: Three or More Times per Week Do you belong to any clubs or organizations such as buddhist groups unions, fraternal or athletic groups, or school groups?: No Social isolation score (0-1 are the most socially isolated patients): 2 Social isolation score reviewed/action taken: No Vitals/I&O/Wt Last Vital Signs Temp 97.8 F 07/21/20 03:05 Pulse 81 07/21/20 10:54 Resp 20 H 07/21/20 10:54 BP 132/64 07/21/20 10:54 Pulse Ox 96 07/21/20 10:54 07/21/20 07/21/20 07/21/20 06:59 14:59 22:59 Intake Total 360 / 360 Balance 360 / 360 Weight last 48 hrs Weight 185 lb Physical Exam Narrative: EXAM NARRATIVE: GENERAL: Patient is alert, awake and oriented x3. NECK: No jugular vein distension. HEENT: No cyanosis. No icterus. No pallor. HEART: Regular S1 and S2. No murmur, rub or gallop. LUNGS: Clear to auscultate bilaterally. ABDOMEN: Soft, nontender and nondistended. Positive bowel sounds. No guarding, rebound or tenderness. CENTRAL NERVOUS SYSTEM: Grossly nonfocal. EXTREMITIES: Lower extremities without edema bilaterally. A&P Assessment and plan (1) New onset a-fib: Labetalol is on hold. Cardizem was also stopped. We will switch patient to metoprolol 12.5 mg twice daily. We will continue anticoagulation switching to apixaban. We will monitor patient on telemetry. He may have obstructive sleep apnea which may represent the pauses. Status: Acute (2) Hypertension: Well-controlled continue medicine Status: Acute Qualifiers: Hypertension type: essential hypertension Qualified Code(s): I10 - Essential (primary) hypertension (3) AAA (abdominal aortic aneurysm): Stable. Follow-up with Dr. Manzano as an outpatient Status: Acute Qualifiers: Presence of rupture: without rupture Qualified Code(s): I71.4 - Abdominal aortic aneurysm, without rupture Consult Attestations Medical Necessity Statement: Patient require continuation hospitalization for above defined care. Coding Level of Care Code New Pt Acute Engineering Designer for Chg Fwd Patient Type New History Detailed Exam Detailed Medical Decision Making Moderate Complexity Diagnoses New onset a-fib I48.91 Hypertension I10 Hypertension type: essential hypertension AAA (abdominal aortic aneurysm) I71.4 Presence of rupture: without rupture
--- NOTE | 2020-07-21 15:41 | PC.NURSE ---
Dr. Quezada notified that patient HR is 120s, irregular to auscultation. Patient refusing telemetry wires, unable to assess rhythm. BP 117/81. Patient reports not feeling well but is unable to report specific symptoms. Telephone order to administer 25 mg metoprolol PO now, continue to monitor HR and notify physician in an hour. RBTO.
[2020-07-21] MEDS: metoprolol tartrate 25 mg Tablet PO ×2 (15:51→21:34)
[2020-07-21 16:00] VITALS: BP 112/76; PULSE 81; RESP 18; TEMP 36.6; O2SAT 96
--- NOTE | 2020-07-21 17:32 | PC.NURSE ---
Dr. Quezada updated on patient condition. HR 80-90s, irregular. Telephone order to increase metoprolol to 25 mg q12h, next dose tonight at 2100. RBTO. Nurse to continue to monitor.
[2020-07-21 20:00] VITALS: BP 140/79; PULSE 94; RESP 18; TEMP 36.3; O2SAT 96
[2020-07-21 22:00] VITALS: PULSE 80
[2020-07-22] VITALS (9 sets, daily range): BP systolic 101–140; BP diastolic 56–94; PULSE 61–96; RESP 18–30; TEMP 36.3–36.8; O2SAT 91–96
[2020-07-22 00:11] LABS: Bilirubin Urine Neg (Negative); Blood Urine 2+ (Negative); Glucose Urine UA Norm (Normal); Ketones Urine Negative (Negative); Leukocyte Esterase Urine Negative (Negative); Nitrate Urine Negative (Negative); Protein Urine Neg (Negative); Specific Gravity, Urine 1.015 (1.005-1.030); Urine Appearance Clear (CLEAR); Urine Color Yellow (Yellow); Urobilinogen Urine Norm (Negative); pH Urine 6.5 (5-7)
[2020-07-22 00:12] LABS: Add Urine Microscopic? YES
[2020-07-22 00:16] LABS: RBC Urine 15-25 /hpf (0-2)
[2020-07-22 00:17] LABS: Add Urine Culture? Yes; Bacteria Urine 2+ /hpf; WBC Urine 0-4 /hpf (0-5)
[2020-07-22 03:55] LABS: Basophils # 0.1 10^3/uL (0.0-0.1); Basophils % 0.6 %; Eosinophils # 0.4 10^3/uL (0.0-0.8); Eosinophils % 3.6 %; Hematocrit 46.4 % (42.0-52.0); Hemoglobin 15.4 g/dL (11.7-16.6); Lymphocytes # 3.2 10^3/uL (0.8-4.8); Lymphocytes % 31.2 %; Mean Corpuscular HGB Conc 33.2 g/dL (30.0-36.0); Mean Corpuscular Hemoglobin 28.7 pg (28.0-34.0); Mean Corpuscular Volume 86.4 fL (80-94); Mean Platelet Volume 8.7 fL (7.4-10.4); Monocytes % 9.7 %; Neutrophils % 54.7 %; Nucleated Red Blood Cells % 0 %; Platelet Count 244 10^3/cmm (130-400); Red Blood Count 5.37 10^6/uL (4.1-5.3); Red Cell Distribution Width 14.2 % (12.1-15.1); White Blood Count 10.4 10^3/uL (4.0-10.0)
[2020-07-22 04:13] LABS: Albumin Level 3.5 g/dL (3.5-5.2); Anion Gap 10.9 (5-19); Blood Urea Nitrogen 19 mg/dL (8-23); Calcium 9.1 mg/dL (8.5-10.5); Carbon Dioxide 28 mmol/L (22-29); Chloride 105 mmol/L (98-107); Creatinine Clr Calc Pharmacy 97.3753; Glomerular Filtration Rate 95.6 mL/min (90-130); Glucose 103 mg/dL (65-115); Magnesium 1.7 mg/dL (1.7-2.3); Phosphorus 2.9 mg/dL (2.5-4.5); Potassium 3.9 mmol/L (3.5-5.1); Sodium 140 mmol/L (136-145)
--- NOTE | 2020-07-22 06:53 | PC.NURSE ---
late entry, pt had several episodes of bradycardia with pauses throughout the night, pt asymptomatic with no c/o of chest pain. Tele strips sent to Dr Ruiz, who ordered prn atropine
[2020-07-22] MEDS: metoprolol tartrate 25 mg Tablet PO (08:17)
--- NOTE | 2020-07-22 09:10 | PC.CHAP ---
Pastoral Care Encounter/Spiritual Assessment Type of Contact [] Declined communication spec visit [] Patient/Family/Request visit [] Outpatient visit [] Follow-up visit [] Physician referral [] Code/Alert [x] Routine visit [] Staff referral [] Actively dying [] Patient sleeping [] Family support [] [] Out of room [] Palliative care [] [] Receiving care in room [] Pre-surgical visit [] Trauma [] Long length of stay [] ICU visit [x] Other: sitter present Relational/Emotional Strength [] Patient feels connected with others/family/visitors/staff [] Distress [] Loneliness/isolation [] Abandonment Spirituality of Patient [] Person of Meron [] Attends Anglican of their [place] [] Believes in Prayer [] Reads Bible or Episcopal materials [] There are Spiritual issues to be addressed Manager Account Management Interventions [x] Prayer [x] Active listening [x] Non-anxious presence [x] Spiritual/emotional support [] Crisis/trauma care [] Spiritual counseling [] Bereavement support [] Provided bereavement packet [] Provided Bible/devotional materials [] Provided toy/stuffed animal, coloring book to patient or family member [] Provided Communion [] Anointing/[place] [] Salvation [x] Completed spiritual assessment [] Other: Impact on Illness or Injury [] Angry [] Fearful [] Anxious [] Often cries [] Exhaustion [] Unable to work [] Unable to attend confucianism [] Unable to walk/stand [] Unable to read [] Unable to drive [] Unable to eat/drink [] Unable to sleep [] Unable to be with family [] Patient intubated [] Other: Summary patient very will for prayer, and discussed Mango's arc... Time spent with patient 10 min
[2020-07-22] MEDS: enoxaparin 40 mg/0.4 mL Syringe SUBCUT ×2 (12:22→17:01)
[2020-07-22] MEDS: cilostazol 100 mg Tablet PO (12:22)
[2020-07-22] MEDS: aspirin 81 mg EC Tablet PO (12:22)
[2020-07-22] MEDS: atorvastatin 40 mg Tablet 20 MG PO (12:22)
[2020-07-22] MEDS: tamsulosin 0.4 mg Capsule PO (12:23)
[2020-07-22] MEDS: potassium chloride ER 20 mEq Tablet PO (12:23)
--- NOTE | 2020-07-22 13:46 | PM.PN ---
Subjective Subjective: Interval history: Patient had 2 to 3-second pauses and episode of bradycardia in the night heart rate otherwise remained stable Medications: Reviewed: Yes Medication Review Details: Generic Name Dose Route Start Last Admin Trade Name Caitie PRN Reason Stop Dose Admin Aspirin 81 mg 07/20/20 12:00 07/20/20 11:02 Aspirin 81 Mg Ec Tablet PO 81 mg DAILY@1200 [facility] Administration Atorvastatin Calci um 20 mg 07/20/20 12:00 07/20/20 11:02 Atorvastatin 40 Mg Tablet PO 20 mg DAILY@1200 [facility] Administration Cilostazol 100 mg 07/20/20 12:00 07/20/20 11:02 Cilostazol 100 M g Tablet PO 100 mg DAILY@1200 [facility] Administration Labetalol HCl 200 mg 07/20/20 03:30 07/20/20 17:10 Labetalol 200 Mg Tablet PO 200 mg BID [facility] Administration Mirtazapine 7.5 mg 07/21/20 00:00 07/20/20 23:06 Mirtazapine 15 M g Tablet PO 7.5 mg DAILY@0000 [facility] Administration Olanzapine 5 mg 07/20/20 03:29 07/21/20 03:55 Olanzapine 10 Mg Vial IM 5 mg Q8H PRN Administration SEVERE AGITATION Potassium Chloride 20 meq 07/20/20 12:00 07/20/20 11:02 Potassium Chlori de Er 20 Meq Table t PO 20 meq DAILY@1200 [facility] Administration Tamsulosin HCl 0.4 mg 07/20/20 12:00 07/20/20 11:02 Tamsulosin 0.4 M g Capsule PO 0.4 mg DAILY@1200 [facility] Administration Vitals/I&O/Wt Last Vital Signs Temp 97.3 F L 07/22/20 11:30 Pulse 61 07/22/20 11:30 Resp 18 07/22/20 11:30 BP 116/57 07/22/20 11:30 Pulse Ox 91 07/22/20 11:30 07/21/20 07/22/20 07/22/20 22:59 06:59 14:59 Intake Total 240 / 600 720 / 720 Balance 240 / 600 720 / 720 Physical Exam Narrative: EXAM NARRATIVE: GENERAL: Patient is alert, awake and oriented x3. NECK: No jugular vein distension. HEENT: No cyanosis. No icterus. No pallor. HEART: Regular S1 and S2. No murmur, rub or gallop. LUNGS: Clear to auscultate bilaterally. ABDOMEN: Soft, nontender and nondistended. Positive bowel sounds. No guarding, rebound or tenderness. CENTRAL NERVOUS SYSTEM: Grossly nonfocal. EXTREMITIES: Lower extremities without edema bilaterally. Data : 07/22/20 03:45 07/22/20 03:45 A&P Assessment and plan (1) New onset a-fib: Patient was switched to metoprolol 25 twice daily, atrial fibrillation has settled down to sinus rhythm however he has 2 to 3-second pause in the night. I will reduce evening dose to 12.5 mg. Continue rest of the medicine Status: Acute (2) Hypertension: Well-controlled continue medicine Status: Acute Qualifiers: Hypertension type: essential hypertension Qualified Code(s): I10 - Essential (primary) hypertension (3) AAA (abdominal aortic aneurysm): Stable. Follow-up with Dr. Manzano as an outpatient Status: Acute Qualifiers: Presence of rupture: without rupture Qualified Code(s): I71.4 - Abdominal aortic aneurysm, without rupture Attestations Medical Necessity Statement*: Patient require continuation hospitalization for above defined care. Coding Level of Care Code Established Pt Acute Biomass Plant Manager for Chg Fwd Patient Type Established History Expanded Problem Focused Exam Expanded Problem Focused Medical Decision Making Moderate Complexity Diagnoses New onset a-fib I48.91 Hypertension I10 Hypertension type: essential hypertension AAA (abdominal aortic aneurysm) I71.4 Presence of rupture: without rupture
--- NOTE | 2020-07-22 14:31 | PC.NURSE ---
Patient exhibited two 3 seconds pauses, BP 114/93. Patient asymptomatic, awake talking to . Dr. Quezada notified. Dose changes to metoprolol. Nurse to continue to monitor.
--- NOTE | 2020-07-22 15:31 | P.PN_ITS ---
Subjective Subjective: Interval history: Patient was examined this morning, he has no complaints, no chest pain, no shortness of breath, no lightheaded, no dizziness, no nausea, vomiting Medications: Reviewed: Yes Medication Review Details: Generic Name Dose Route Start Last Admin Trade Name Caitie PRN Reason Stop Dose Admin Aspirin 81 mg 07/20/20 12:00 07/20/20 11:02 Aspirin 81 Mg Ec Tablet PO 81 mg DAILY@1200 [facility] Administration Atorvastatin Calci um 20 mg 07/20/20 12:00 07/20/20 11:02 Atorvastatin 40 Mg Tablet PO 20 mg DAILY@1200 [facility] Administration Cilostazol 100 mg 07/20/20 12:00 07/20/20 11:02 Cilostazol 100 M g Tablet PO 100 mg DAILY@1200 [facility] Administration Labetalol HCl 200 mg 07/20/20 03:30 07/20/20 17:10 Labetalol 200 Mg Tablet PO 200 mg BID [facility] Administration Mirtazapine 7.5 mg 07/21/20 00:00 07/20/20 23:06 Mirtazapine 15 M g Tablet PO 7.5 mg DAILY@0000 [facility] Administration Olanzapine 5 mg 07/20/20 03:29 07/21/20 03:55 Olanzapine 10 Mg Vial IM 5 mg Q8H PRN Administration SEVERE AGITATION Potassium Chloride 20 meq 07/20/20 12:00 07/20/20 11:02 Potassium Chlori de Er 20 Meq Table t PO 20 meq DAILY@1200 [facility] Administration Tamsulosin HCl 0.4 mg 07/20/20 12:00 07/20/20 11:02 Tamsulosin 0.4 M g Capsule PO 0.4 mg DAILY@1200 [facility] Administration Vitals/I&O/Wt Last Vital Signs Temp 98.1 F 07/22/20 14:55 Pulse 81 07/22/20 14:55 Resp 22 H 07/22/20 14:55 BP 108/73 07/22/20 14:55 Pulse Ox 94 07/22/20 14:55 07/22/20 07/22/20 07/22/20 06:59 14:59 22:59 Intake Total 720 / 720 Balance 720 / 720 Physical Exam Const: COMMON NORMALS: no acute distress and patient oriented x3 HENMT: COMMON NORMALS: normocephalic HEAD & SCALP: normocephalic Neck/C-Spine: COMMON NORMALS: no JVD Resp: COMMON NORMALS: normal respiratory effort, No retractions, No use of accessory muscles and clear to auscultation bilaterally AUSCULTATION: clear to auscultation bilaterally Cardio: COMMON NORMALS: no JVD, regular rate, regular rhythm, S1 normal heart sound present and S2 normal heart sound present RATE: regular rate RHYTHM: regular rhythm HEART SOUNDS: S1 normal heart sound present and S2 normal heart sound present GI: COMMON NORMALS: Normal to inspection, nondistended, normoactive bowel sounds present, Soft to palpation, non-tender, No hepatosplenomegaly present, no masses and no bruits PALPATION: Yes Soft to palpation and Yes No hepatosplenomegaly present Extremity: COMMON NORMALS: capillary refill normal, no clubbing, cyanosis or edema, no calf tenderness and no pedal edema Neuro: COMMON NORMALS: patient oriented x3 Psych: COMMON NORMALS: mental status grossly normal Data : 07/22/20 03:45 07/22/20 03:45 A&P Assessment and plan (1) New onset a-fib: Status: Acute (2) Delusional disorder: Status: Acute (3) Psychosis: Status: Acute Additional A&P Information New onset A. fib Chads vas is 5, has blood is 2 Now developing sinus pauses, sinus bradycardia His dose of metoprolol has been cut down to 12.5 twice daily, he possibly might require pacemaker placement Switch to therapeutic Lovenox 80 twice daily, Eliquis on discharge to geriatric psych Cardiology on consult Elevated troponins, likely supply demand ischemia related to atrial fibrillation, continue to monitor Abdominal aortic aneurysm, awaiting AAA repair by Dr. Manzano Delusional disorder with psychosis Psychiatry on consult Patient is showing paranoia, recently mirtazapine and risperidone was started by psychiatrist Patient has no suicidal ideation but stated he rather has his AAA rupture instead of going for the repair I would continue mirtazapine for now only and hold risperidone Awaiting geriatric psych placement Dehydration with hypokalemia Resolved Full code DVT prophylaxis SCDs, Lovenox Cardiac diet Dehydration. Resolved. Continue oral hydration. Cholelithiasis. Symptomatic. Outpatient evaluation and follow-up with surgeon could be considered. Likely hematuria. Will do a renal ultrasound, have patient follow-up with urology The plan of care was discussed with the patient. He verbalized understanding and agreement. Attestations Medical Necessity Statement*: Patient requires hospitalization for new onset A. fib, now with sinus pauses, sinus bradycardia, awaiting placement to geriatric psychiatric facility Coding Level of Care Code Acute Television Cabinet Finisher for [facility] Diagnoses New onset a-fib I48.91 Delusional disorder F22 Psychosis F29
--- NOTE | 2020-07-22 16:17 | PC.RESP ---
Smoking Cessation information sent to patient.
[2020-07-22] MEDS: metoprolol tartrate 25 mg Tablet 12.5 MG PO (21:42)
[2020-07-22] MEDS: mirtazapine 15 mg Tablet 7.5 MG PO (23:43)
[2020-07-23] VITALS (11 sets, daily range): BP systolic 101–152; BP diastolic 68–90; PULSE 78–120; RESP 14–36; TEMP 36.6–36.9; O2SAT 92–98
[2020-07-23] MEDS: enoxaparin 80 mg/0.8 mL Syringe SUBCUT ×2 (04:55→16:58)
[2020-07-23 05:21] LABS: Basophils # 0.1 10^3/uL (0.0-0.1); Basophils % 0.8 %; Eosinophils # 0.4 10^3/uL (0.0-0.8); Eosinophils % 3.6 %; Hematocrit 47.6 % (42.0-52.0); Hemoglobin 15.6 g/dL (11.7-16.6); Lymphocytes % 29.6 %; Mean Corpuscular HGB Conc 32.8 g/dL (30.0-36.0); Mean Corpuscular Hemoglobin 28.9 pg (28.0-34.0); Mean Corpuscular Volume 88.3 fL (80-94); Mean Platelet Volume 9.4 fL (7.4-10.4); Monocytes # 1.1 10^3/uL (0.2-0.9); Monocytes % 10.8 %; Neutrophils # 5.63 10^3/uL (1.8-7.7); Neutrophils % 54.9 %; Nucleated Red Blood Cells % 0 %; Platelet Count 279 10^3/cmm (130-400); Red Blood Count 5.39 10^6/uL (4.1-5.3); White Blood Count 10.3 10^3/uL (4.0-10.0)
[2020-07-23 06:17] LABS: Alanine Aminotransferase 13 U/L (0-41); Albumin Level 3.5 g/dL (3.5-5.2); Alkaline Phosphatase 78 IU/L (40-130); Anion Gap 11.7 (5-19); Aspartate Amino Transferase 16 U/L (0-40); Blood Urea Nitrogen 17 mg/dL (8-23); Calcium 9.3 mg/dL (8.5-10.5); Carbon Dioxide 29 mmol/L (22-29); Chloride 104 mmol/L (98-107); Globulin 2.9 g/dL (1.3-4.6); Glomerular Filtration Rate 83.4 mL/min (90-130); Glucose 99 mg/dL (65-115); Magnesium 2.2 mg/dL (1.7-2.3); Osmolality Calculated 294 mOsm/kg (285-295); Phosphorus 2.9 mg/dL (2.5-4.5); Potassium 3.7 mmol/L (3.5-5.1); Sodium 141 mmol/L (136-145); Total Bilirubin 0.9 mg/dL (0.15-1.2); Total Protein 6.4 g/dL (6.6-8.7)
--- NOTE | 2020-07-23 07:32 | PC.NURSE ---
patient resting in the chair, assessment performed and charted. sitter at bedside. no needs at this time.
[2020-07-23] MEDS: metoprolol tartrate 25 mg Tablet 12.5 MG PO ×2 (08:58→21:30)
--- NOTE | 2020-07-23 09:07 | PC.CHAP ---
Pastoral Care Encounter/Spiritual Assessment Type of Contact [] Declined hand umbrella tipper visit [] Patient/Family/Request visit [] Outpatient visit [] Follow-up visit [] Physician referral [] Code/Alert [x] Routine visit [] Staff referral [] Actively dying [] Patient sleeping [] Family support [] [] Out of room [] Palliative care [] [] Receiving care in room [] Pre-surgical visit [] Trauma [] Long length of stay [] ICU visit [x] Other: just checked back in on patient.. sitter still present, but patient setting up in chair Relational/Emotional Strength [] Patient feels connected with others/family/visitors/staff [] Distress [] Loneliness/isolation [] Abandonment Spirituality of Patient [] Person of [place] [] Attends Mu-Ism of their [place] [] Believes in Prayer [] Reads Bible or Sikhism materials [] There are Spiritual issues to be addressed Lozenge Maker Interventions [x] Prayer [] Active listening [] Non-anxious presence [] Spiritual/emotional support [] Crisis/trauma care [] Spiritual counseling [] Bereavement support [] Provided bereavement packet [] Provided Bible/devotional materials [] Provided toy/stuffed animal, coloring book to patient or family member [] Provided Communion [] Anointing/[place] [] Salvation [x] Completed spiritual assessment [] Other: Impact on Illness or Injury [] Angry [] Fearful [] Anxious [] Often cries [] Exhaustion [] Unable to work [] Unable to attend congregational [] Unable to walk/stand [] Unable to read [] Unable to drive [] Unable to eat/drink [] Unable to sleep [] Unable to be with family [] Patient intubated [] Other: Summary Time spent with patient
--- NOTE | 2020-07-23 11:20 | PC.NURSE ---
patient sitting on the side of the bed with visitors at bedside. sitter at bedside. no needs at this time.
--- NOTE | 2020-07-23 11:56 | P.PN_ITS ---
Subjective Subjective: Interval history: Patient was examined this morning, he is actually sleeping in a chair, is arousable, he has no complaints, he had one episode of sinus pause yesterday at 1:40 PM, no episodes since then Medications: Reviewed: Yes Medication Review Details: Generic Name Dose Route Start Last Admin Trade Name Caitie PRN Reason Stop Dose Admin Aspirin 81 mg 07/20/20 12:00 07/20/20 11:02 Aspirin 81 Mg Ec Tablet PO 81 mg DAILY@1200 [facility] Administration Atorvastatin Calci um 20 mg 07/20/20 12:00 07/20/20 11:02 Atorvastatin 40 Mg Tablet PO 20 mg DAILY@1200 [facility] Administration Cilostazol 100 mg 07/20/20 12:00 07/20/20 11:02 Cilostazol 100 M g Tablet PO 100 mg DAILY@1200 [facility] Administration Labetalol HCl 200 mg 07/20/20 03:30 07/20/20 17:10 Labetalol 200 Mg Tablet PO 200 mg BID SHE[facility] Administration Mirtazapine 7.5 mg 07/21/20 00:00 07/20/20 23:06 Mirtazapine 15 M g Tablet PO 7.5 mg DAILY@0000 [facility] Administration Olanzapine 5 mg 07/20/20 03:29 07/21/20 03:55 Olanzapine 10 Mg Vial IM 5 mg Q8H PRN Administration SEVERE AGITATION Potassium Chloride 20 meq 07/20/20 12:00 07/20/20 11:02 Potassium Chlori de Er 20 Meq Table t PO 20 meq DAILY@1200 [facility] Administration Tamsulosin HCl 0.4 mg 07/20/20 12:00 07/20/20 11:02 Tamsulosin 0.4 M g Capsule PO 0.4 mg DAILY@1200 [facility] Administration Vitals/I&O/Wt Last Vital Signs Temp 98.4 F 07/23/20 07:23 Pulse 85 07/23/20 07:23 Resp 15 07/23/20 07:23 BP 101/76 07/23/20 07:23 Pulse Ox 98 07/23/20 07:23 07/22/20 07/23/20 07/23/20 22:59 06:59 14:59 Intake Total 360 / 1080 100 / 1180 120 / 120 Balance 360 / 1080 100 / 1180 120 / 120 Physical Exam Const: COMMON NORMALS: no acute distress and patient oriented x3 HENMT: COMMON NORMALS: normocephalic HEAD & SCALP: normocephalic Neck/C-Spine: COMMON NORMALS: no JVD Resp: COMMON NORMALS: normal respiratory effort, No retractions, No use of accessory muscles and clear to auscultation bilaterally AUSCULTATION: clear to auscultation bilaterally Cardio: COMMON NORMALS: no JVD, regular rate, regular rhythm, S1 normal heart sound present and S2 normal heart sound present RATE: regular rate RHYTHM: regular rhythm HEART SOUNDS: S1 normal heart sound present and S2 normal heart sound present GI: COMMON NORMALS: Normal to inspection, nondistended, normoactive bowel sounds present, Soft to palpation, non-tender, No hepatosplenomegaly present, no masses and no bruits PALPATION: Yes Soft to palpation and Yes No hepatosplenomegaly present Extremity: COMMON NORMALS: capillary refill normal, no clubbing, cyanosis or edema, no calf tenderness and no pedal edema Neuro: COMMON NORMALS: patient oriented x3 Psych: COMMON NORMALS: mental status grossly normal Data : 07/23/20 04:26 07/23/20 04:26 A&P Assessment and plan (1) New onset a-fib: Status: Acute (2) Delusional disorder: Status: Acute (3) Psychosis: Status: Acute Additional A&P Information New onset A. fib Chads vas is 5, has blood is 2 Now developing sinus pauses, sinus bradycardia His dose of metoprolol has been cut down to 12.5 twice daily, he possibly might require pacemaker placement Switch to therapeutic Lovenox 80 twice daily, Eliquis on discharge to geriatric psych Cardiology on consult Elevated troponins, likely supply demand ischemia related to atrial fibrillation, continue to monitor Abdominal aortic aneurysm, awaiting AAA repair by Dr. Manzano Delusional disorder with psychosis Psychiatry on consult Patient is showing paranoia, recently mirtazapine and risperidone was started by psychiatrist Patient has no suicidal ideation but stated he rather has his AAA rupture instead of going for the repair I would continue mirtazapine for now only and hold risperidone Awaiting geriatric psych placement Dehydration with hypokalemia Resolved Full code DVT prophylaxis SCDs, Lovenox Cardiac diet Dehydration. Resolved. Continue oral hydration. Cholelithiasis. Symptomatic. Outpatient evaluation and follow-up with surgeon could be considered. Likely hematuria. CTA of the abdomen shows renal cyst, will have patient follow-up with urology The plan of care was discussed with the patient. He verbalized understanding and agreement. Attestations Medical Necessity Statement*: She requires hospitalization for atrial fibrillation, with sinus pauses, delusions disorder requiring placement to geriatric psych, awaiting placement Coding Level of Care Code Acute Client Service Representative for g Fwd Diagnoses New onset a-fib I48.91 Delusional disorder F22 Psychosis F29
[2020-07-23] MEDS: cilostazol 100 mg Tablet PO (12:36)
[2020-07-23] MEDS: aspirin 81 mg EC Tablet PO (12:36)
[2020-07-23] MEDS: potassium chloride ER 20 mEq Tablet PO (12:36)
[2020-07-23] MEDS: atorvastatin 40 mg Tablet 20 MG PO (12:36)
[2020-07-23] MEDS: tamsulosin 0.4 mg Capsule PO (12:36)
--- NOTE | 2020-07-23 17:39 | PC.NURSE ---
patient requesting to talk to the dr. Dr. Pinto notified. no other needs identified at this time
--- NOTE | 2020-07-23 19:43 | PM.PN ---
Subjective Subjective: Interval history: No more pauses since metoprolol was dropped down to 12.5 mg twice a day. Medications: Reviewed: Yes Medication Review Details: Generic Name Dose Route Start Last Admin Trade Name Caitie PRN Reason Stop Dose Admin Aspirin 81 mg 07/20/20 12:00 07/20/20 11:02 Aspirin 81 Mg Ec Tablet PO 81 mg DAILY@1200 [facility] Administration Atorvastatin Calci um 20 mg 07/20/20 12:00 07/20/20 11:02 Atorvastatin 40 Mg Tablet PO 20 mg DAILY@1200 [facility] Administration Cilostazol 100 mg 07/20/20 12:00 07/20/20 11:02 Cilostazol 100 M g Tablet PO 100 mg DAILY@1200 [facility] Administration Labetalol HCl 200 mg 07/20/20 03:30 07/20/20 17:10 Labetalol 200 Mg Tablet PO 200 mg BID [facility] Administration Mirtazapine 7.5 mg 07/21/20 00:00 07/20/20 23:06 Mirtazapine 15 M g Tablet PO 7.5 mg DAILY@0000 [facility] Administration Olanzapine 5 mg 07/20/20 03:29 07/21/20 03:55 Olanzapine 10 Mg Vial IM 5 mg Q8H PRN Administration SEVERE AGITATION Potassium Chloride 20 meq 07/20/20 12:00 07/20/20 11:02 Potassium Chlori de Er 20 Meq Table t PO 20 meq DAILY@1200 [facility] Administration Tamsulosin HCl 0.4 mg 07/20/20 12:00 07/20/20 11:02 Tamsulosin 0.4 M g Capsule PO 0.4 mg DAILY@1200 [facility] Administration Vitals/I&O/Wt Last Vital Signs Temp 98.3 F 07/23/20 17:50 Pulse 120 H 07/23/20 17:50 Resp 36 H 07/23/20 17:50 BP 107/71 07/23/20 17:50 Pulse Ox 92 07/23/20 17:50 07/23/20 07/23/20 07/23/20 06:59 14:59 22:59 Intake Total 100 / 1180 240 / 240 120 / 360 Balance 100 / 1180 240 / 240 120 / 360 Physical Exam Narrative: EXAM NARRATIVE: GENERAL: Patient is alert, awake and oriented x3. NECK: No jugular vein distension. HEENT: No cyanosis. No icterus. No pallor. HEART: Regular S1 and S2. No murmur, rub or gallop. LUNGS: Clear to auscultate bilaterally. ABDOMEN: Soft, nontender and nondistended. Positive bowel sounds. No guarding, rebound or tenderness. CENTRAL NERVOUS SYSTEM: Grossly nonfocal. EXTREMITIES: Lower extremities without edema bilaterally. Data : 07/23/20 04:26 07/23/20 04:26 Micro: Microbiology 07/21/20 23:20 Urine Culture - Preliminary Urine,Clean Catch A&P Assessment and plan (1) New onset a-fib: Continue metoprolol 12.5 mg p.o. twice daily. Due to CHADVASc score 2 will recommend anticoagulation Status: Acute (2) Hypertension: Well-controlled continue medicine Status: Acute Qualifiers: Hypertension type: essential hypertension Qualified Code(s): I10 - Essential (primary) hypertension (3) AAA (abdominal aortic aneurysm): Stable. Follow-up with Dr. Manzano as an outpatient Status: Acute Qualifiers: Presence of rupture: without rupture Qualified Code(s): I71.4 - Abdominal aortic aneurysm, without rupture Attestations Medical Necessity Statement*: Patient require continuation hospitalization for above defined care. Coding Level of Care Code Established Pt Acute Editor Book for Chg Fwd Patient Type Established History Expanded Problem Focused Exam Expanded Problem Focused Medical Decision Making Moderate Complexity Diagnoses New onset a-fib I48.91 Hypertension I10 Hypertension type: essential hypertension AAA (abdominal aortic aneurysm) I71.4 Presence of rupture: without rupture
[2020-07-23] MEDS: mirtazapine 15 mg Tablet 7.5 MG PO (21:30)
[2020-07-24] VITALS (11 sets, daily range): BP systolic 97–151; BP diastolic 51–88; PULSE 77–93; RESP 15–24; TEMP 36.3–36.8; O2SAT 95–99
--- NOTE | 2020-07-24 04:04 | PC.NURSE ---
Dr. Ruiz notified of patient refusing Lovenox at this time.
[2020-07-24 05:08] LABS: Basophils # 0.1 10^3/uL (0.0-0.1); Basophils % 0.8 %; Eosinophils # 0.3 10^3/uL (0.0-0.8); Eosinophils % 3.2 %; Hematocrit 50.5 % (42.0-52.0); Hemoglobin 16.4 g/dL (11.7-16.6); Lymphocytes # 2.4 10^3/uL (0.8-4.8); Lymphocytes % 28.3 %; Mean Corpuscular HGB Conc 32.5 g/dL (30.0-36.0); Mean Corpuscular Hemoglobin 28.8 pg (28.0-34.0); Mean Corpuscular Volume 88.6 fL (80-94); Monocytes # 0.8 10^3/uL (0.2-0.9); Neutrophils # 4.82 10^3/uL (1.8-7.7); Neutrophils % 57.6 %; Nucleated Red Blood Cells % 0 %; Platelet Count 306 10^3/cmm (130-400); Red Cell Distribution Width 13.8 % (12.1-15.1); White Blood Count 8.4 10^3/uL (4.0-10.0)
[2020-07-24 05:39] LABS: Alanine Aminotransferase 14 U/L (0-41); Albumin Level 3.8 g/dL (3.5-5.2); Alkaline Phosphatase 91 IU/L (40-130); Anion Gap 11.9 (5-19); Aspartate Amino Transferase 18 U/L (0-40); Blood Urea Nitrogen 15 mg/dL (8-23); Calcium 9.1 mg/dL (8.5-10.5); Carbon Dioxide 30 mmol/L (22-29); Chloride 104 mmol/L (98-107); Globulin 3.4 g/dL (1.3-4.6); Glomerular Filtration Rate 83.4 mL/min (90-130); Glucose 111 mg/dL (65-115); Magnesium 2.2 mg/dL (1.7-2.3); Osmolality Calculated 296 mOsm/kg (285-295); Potassium 3.9 mmol/L (3.5-5.1); Sodium 142 mmol/L (136-145); Total Bilirubin 0.7 mg/dL (0.15-1.2); Total Protein 7.2 g/dL (6.6-8.7)
[2020-07-24] MEDS: metoprolol tartrate 25 mg Tablet 12.5 MG PO ×2 (09:00→20:53)
--- NOTE | 2020-07-24 09:45 | PC.NURSE ---
patient ambulating in the dominique with sitter.
--- NOTE | 2020-07-24 11:52 | PM.PN ---
Subjective Subjective: Interval history: Patient was examined this morning, he is enjoying breakfast, he is wondering when he will get out of the hospital, he has no complaints of chest pain, no shortness of breath, no lightheadedness, no dizziness Vitals/I&O/Wt Last Vital Signs Temp 97.4 F L 07/24/20 07:49 Pulse 82 07/24/20 08:00 Resp 16 07/24/20 08:00 BP 142/82 07/24/20 08:00 Pulse Ox 99 07/24/20 08:00 07/23/20 07/24/20 07/24/20 22:59 06:59 14:59 Intake Total 120 / 360 300 / 660 240 / 240 Balance 120 / 360 300 / 660 240 / 240 Physical Exam Const: COMMON NORMALS: no acute distress and patient oriented x3 HENMT: COMMON NORMALS: normocephalic HEAD & SCALP: normocephalic Neck/C-Spine: COMMON NORMALS: no JVD Resp: COMMON NORMALS: normal respiratory effort, No retractions, No use of accessory muscles and clear to auscultation bilaterally AUSCULTATION: clear to auscultation bilaterally Cardio: COMMON NORMALS: no JVD, regular rate, S1 normal heart sound present and S2 normal heart sound present RATE: regular rate RHYTHM: abnormal rhythm irregularly irregular HEART SOUNDS: S1 normal heart sound present and S2 normal heart sound present GI: COMMON NORMALS: Normal to inspection, nondistended, normoactive bowel sounds present, Soft to palpation, non-tender, No hepatosplenomegaly present, no masses and no bruits PALPATION: Yes Soft to palpation and Yes No hepatosplenomegaly present Extremity: COMMON NORMALS: capillary refill normal, no clubbing, cyanosis or edema, no calf tenderness and no pedal edema Neuro: COMMON NORMALS: patient oriented x3 Psych: COMMON NORMALS: mental status grossly normal Data : 07/24/20 04:33 07/24/20 04:33 Micro: Microbiology 07/21/20 23:20 Urine Culture - Final Urine,Clean Catch A&P Assessment and plan (1) New onset a-fib: Status: Acute (2) Delusional disorder: Status: Acute (3) Psychosis: Status: Acute Additional A&P Information New onset A. fib Chads vas is 5, has blood is 2 Now developing sinus pauses, sinus bradycardia which have resolved His dose of metoprolol has been cut down to 12.5 twice daily, will require a event monitor discharge Currently on therapeutic Lovenox 80 twice daily, Eliquis on discharge to geriatric psych Cardiology on consult Elevated troponins, likely supply demand ischemia related to atrial fibrillation, continue to monitor Abdominal aortic aneurysm, awaiting AAA repair by Dr. Manzano Delusional disorder with psychosis Psychiatry on consult Patient is showing paranoia, recently mirtazapine and risperidone was started by psychiatrist Patient has no suicidal ideation but stated he rather has his AAA rupture instead of going for the repair I would continue mirtazapine for now only and hold risperidone Awaiting geriatric psych placement Dehydration with hypokalemia Resolved Full code DVT prophylaxis SCDs, Lovenox Cardiac diet Dehydration. Resolved. Continue oral hydration. Cholelithiasis. Symptomatic. Outpatient evaluation and follow-up with surgeon could be considered. Likely hematuria. CTA of the abdomen shows renal cyst, will have patient follow-up with urology The plan of care was discussed with the patient. He verbalized understanding and agreement. Patient will require placement to geriatric psych, awaiting placement Attestations Medical Necessity Statement*: Patient cards hospitalization for atrial fibrillation, delusional disorder, awaiting placement to geriatric psych Coding Level of Care Code Acute Manager Contact for Chg Fwd Diagnoses New onset a-fib I48.91 Delusional disorder F22 Psychosis F29
[2020-07-24] MEDS: atorvastatin 40 mg Tablet 20 MG PO (11:57)
[2020-07-24] MEDS: tamsulosin 0.4 mg Capsule PO (11:57)
[2020-07-24] MEDS: potassium chloride ER 20 mEq Tablet PO (11:58)
[2020-07-24] MEDS: aspirin 81 mg EC Tablet PO (11:58)
[2020-07-24] MEDS: cilostazol 100 mg Tablet PO (11:58)
[2020-07-24] MEDS: enoxaparin 80 mg/0.8 mL Syringe SUBCUT (16:11)
--- NOTE | 2020-07-24 18:05 | PM.PN ---
Subjective Subjective: Interval history: No more episodes of pauses. Overall he is doing fine from a cardiovascular perspective. Medications: Reviewed: Yes Medication Review Details: Generic Name Dose Route Start Last Admin Trade Name Caitie PRN Reason Stop Dose Admin Aspirin 81 mg 07/20/20 12:00 07/20/20 11:02 Aspirin 81 Mg Ec Tablet PO 81 mg DAILY@1200 [facility] Administration Atorvastatin Calci um 20 mg 07/20/20 12:00 07/20/20 11:02 Atorvastatin 40 Mg Tablet PO 20 mg DAILY@1200 [facility] Administration Cilostazol 100 mg 07/20/20 12:00 07/20/20 11:02 Cilostazol 100 M g Tablet PO 100 mg DAILY@1200 [facility] Administration Labetalol HCl 200 mg 07/20/20 03:30 07/20/20 17:10 Labetalol 200 Mg Tablet PO 200 mg BID SHELLY Administration Mirtazapine 7.5 mg 07/21/20 00:00 07/20/20 23:06 Mirtazapine 15 M g Tablet PO 7.5 mg DAILY@0000 [facility] Administration Olanzapine 5 mg 07/20/20 03:29 07/21/20 03:55 Olanzapine 10 Mg Vial IM 5 mg Q8H PRN Administration SEVERE AGITATION Potassium Chloride 20 meq 07/20/20 12:00 07/20/20 11:02 Potassium Chlori de Er 20 Meq Table t PO 20 meq DAILY@1200 [facility] Administration Tamsulosin HCl 0.4 mg 07/20/20 12:00 07/20/20 11:02 Tamsulosin 0.4 M g Capsule PO 0.4 mg DAILY@1200 [facility] Administration Vitals/I&O/Wt Last Vital Signs Temp 97.8 F 07/24/20 15:17 Pulse 93 07/24/20 15:17 Resp 18 07/24/20 15:17 BP 97/51 07/24/20 15:17 Pulse Ox 96 07/24/20 15:17 07/24/20 07/24/20 07/24/20 06:59 14:59 22:59 Intake Total 300 / 660 480 / 480 Balance 300 / 660 480 / 480 Physical Exam Narrative: EXAM NARRATIVE: GENERAL: Patient is alert, awake and oriented x3. NECK: No jugular vein distension. HEENT: No cyanosis. No icterus. No pallor. HEART: Regular S1 and S2. No murmur, rub or gallop. LUNGS: Clear to auscultate bilaterally. ABDOMEN: Soft, nontender and nondistended. Positive bowel sounds. No guarding, rebound or tenderness. CENTRAL NERVOUS SYSTEM: Grossly nonfocal. EXTREMITIES: Lower extremities without edema bilaterally. Data : 07/24/20 04:33 07/24/20 04:33 Micro: Microbiology 07/21/20 23:20 Urine Culture - Final Urine,Clean Catch A&P Assessment and plan (1) New onset a-fib: In sinus rhythm continue metoprolol 12.5 mg p.o. twice daily. No more pauses noted. Will add apixaban due to A. fib Status: Acute (2) Hypertension: Well-controlled continue medicine Status: Acute Qualifiers: Hypertension type: essential hypertension Qualified Code(s): I10 - Essential (primary) hypertension (3) AAA (abdominal aortic aneurysm): Stable. Follow-up with Dr. Manzano as an outpatient Status: Acute Qualifiers: Presence of rupture: without rupture Qualified Code(s): I71.4 - Abdominal aortic aneurysm, without rupture Attestations Medical Necessity Statement*: Patient require continuation hospitalization for above plan of care. 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
[2020-07-24] MEDS: mirtazapine 15 mg Tablet 7.5 MG PO (23:34)
[2020-07-25] VITALS (9 sets, daily range): BP systolic 89–159; BP diastolic 71–99; PULSE 76–96; RESP 17–22; TEMP 36.3–36.7; O2SAT 95–97
[2020-07-25] MEDS: enoxaparin 80 mg/0.8 mL Syringe SUBCUT ×2 (04:18→15:58)
--- NOTE | 2020-07-25 05:06 | PC.NURSE ---
NURSE NOTE: PT ALERT WITH PERIODS OF CONFUSION. 1:1 SITTER AT BEDSIDE. PT CALM AND COOPERATIVE THIS SHIFT. DENIES PAIN. ALL VS AND ASSESSMENTS CHARTED. NO DISTRESS NOTED.
[2020-07-25 05:21] LABS: Basophils # 0.1 10^3/uL (0.0-0.1); Basophils % 0.9 %; Eosinophils # 0.3 10^3/uL (0.0-0.8); Eosinophils % 3.5 %; Hematocrit 48.6 % (42.0-52.0); Hemoglobin 16.2 g/dL (11.7-16.6); Lymphocytes # 2.4 10^3/uL (0.8-4.8); Lymphocytes % 31.7 %; Mean Corpuscular HGB Conc 33.3 g/dL (30.0-36.0); Mean Corpuscular Volume 86.9 fL (80-94); Mean Platelet Volume 8.8 fL (7.4-10.4); Monocytes # 0.9 10^3/uL (0.2-0.9); Monocytes % 11.4 %; Neutrophils # 4.03 10^3/uL (1.8-7.7); Neutrophils % 52.4 %; Nucleated Red Blood Cells % 0 %; Platelet Count 300 10^3/cmm (130-400); Red Blood Count 5.59 10^6/uL (4.1-5.3); Red Cell Distribution Width 13.6 % (12.1-15.1); White Blood Count 7.7 10^3/uL (4.0-10.0)
[2020-07-25 06:09] LABS: Alanine Aminotransferase 16 U/L (0-41); Albumin Level 3.8 g/dL (3.5-5.2); Alkaline Phosphatase 87 IU/L (40-130); Aspartate Amino Transferase 19 U/L (0-40); Blood Urea Nitrogen 14 mg/dL (8-23); Calcium 9.2 mg/dL (8.5-10.5); Carbon Dioxide 29 mmol/L (22-29); Chloride 103 mmol/L (98-107); Globulin 3.3 g/dL (1.3-4.6); Glomerular Filtration Rate 83.4 mL/min (90-130); Glucose 107 mg/dL (65-115); Magnesium 2.1 mg/dL (1.7-2.3); Osmolality Calculated 295 mOsm/kg (285-295); Sodium 142 mmol/L (136-145); Total Bilirubin 0.8 mg/dL (0.15-1.2); Total Protein 7.1 g/dL (6.6-8.7)
--- NOTE | 2020-07-25 08:14 | ECG_ITS ---
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 Measurements Intervals [place] Rate: 91 P: ID: QRS: 28 QRSD: 92 T: 64 QT: 343 QTc: 422 Interpretive Statements ATRIAL FLUTTER/TACHYCARDIA MODERATE ST DEPRESSION [0.05+ mV ST DEPRESSION] Compared to ECG 07/20/2020 06:24:18 ST (T wave) deviation now present T-wave abnormality no longer present Possible ischemia no longer present Electronically Signed On 07-25-2020 18:03:55 NFL PLAYER by Kelvin Lora M.D. [email or web address] [id number]
[2020-07-25 08:41] LABS: Creatine Phosphokinase 82 U/L (39-308)
[2020-07-25 08:42] LABS: Troponin T (5th) Once 26 ng/L (0-15)
[2020-07-25] MEDS: metoprolol tartrate 25 mg Tablet 12.5 MG PO (10:09)
--- NOTE | 2020-07-25 11:01 | PC.NURSE ---
Visitor policy for rule/out covid Informed Dr. Pinto regarding order for PCR-Covid and pt's wanting his family to visit him. Per Dr. Pinto, okay for the dgtr and to come and visit with masks and handwashing. [facility] where pt is going to be transferred are requiring the test prior to transfer. Called her Dgtr Abelino and informed her they can visit him with precautions.
[2020-07-25] MEDS: potassium chloride ER 20 mEq Tablet PO (12:26)
[2020-07-25] MEDS: atorvastatin 40 mg Tablet 20 MG PO (12:26)
[2020-07-25] MEDS: tamsulosin 0.4 mg Capsule PO (12:26)
[2020-07-25] MEDS: aspirin 81 mg EC Tablet PO (12:26)
[2020-07-25] MEDS: cilostazol 100 mg Tablet PO (12:27)
--- NOTE | 2020-07-25 12:45 | P.PN_ITS ---
Subjective Subjective: Interval history: Patient was examined this morning, he sitting up into a chair, having breakfast, has no complaints, no chest pain, no shortness of breath, is awaiting placement to geriatric psych facility Medications: Reviewed: Yes Medication Review Details: Generic Name Dose Route Start Last Admin Trade Name Caitie PRN Reason Stop Dose Admin Aspirin 81 mg 07/20/20 12:00 07/20/20 11:02 Aspirin 81 Mg Ec Tablet PO 81 mg DAILY@1200 [facility] Administration Atorvastatin Calci um 20 mg 07/20/20 12:00 07/20/20 11:02 Atorvastatin 40 Mg Tablet PO 20 mg DAILY@1200 SHE[facility] Administration Cilostazol 100 mg 07/20/20 12:00 07/20/20 11:02 Cilostazol 100 M g Tablet PO 100 mg DAILY@1200 [facility] Administration Labetalol HCl 200 mg 07/20/20 03:30 07/20/20 17:10 Labetalol 200 Mg Tablet PO 200 mg BID SHELLY Administration Mirtazapine 7.5 mg 07/21/20 00:00 07/20/20 23:06 Mirtazapine 15 M g Tablet PO 7.5 mg DAILY@0000 [facility] Administration Olanzapine 5 mg 07/20/20 03:29 07/21/20 03:55 Olanzapine 10 Mg Vial IM 5 mg Q8H PRN Administration SEVERE AGITATION Potassium Chloride 20 meq 07/20/20 12:00 07/20/20 11:02 Potassium Chlori de Er 20 Meq Table t PO 20 meq DAILY@1200 [facility] Administration Tamsulosin HCl 0.4 mg 07/20/20 12:00 07/20/20 11:02 Tamsulosin 0.4 M g Capsule PO 0.4 mg DAILY@1200 [facility] Administration Vitals/I&O/Wt Last Vital Signs Temp 97.7 F 07/25/20 07:15 Pulse 80 07/25/20 07:15 Resp 18 07/25/20 07:15 BP 159/94 07/25/20 07:15 Pulse Ox 95 07/25/20 07:15 07/24/20 07/25/20 07/25/20 22:59 06:59 14:59 Intake Total 480 / 960 120 / 1080 120 / 120 Balance 480 / 960 120 / 1080 120 / 120 Physical Exam Const: COMMON NORMALS: no acute distress and patient oriented x3 HENMT: COMMON NORMALS: normocephalic HEAD & SCALP: normocephalic Neck/C-Spine: COMMON NORMALS: no JVD Resp: COMMON NORMALS: normal respiratory effort, No retractions, No use of accessory muscles and clear to auscultation bilaterally AUSCULTATION: clear to auscultation bilaterally Cardio: COMMON NORMALS: no JVD, regular rate, regular rhythm, S1 normal heart sound present and S2 normal heart sound present RATE: regular rate RHYTHM: regular rhythm HEART SOUNDS: S1 normal heart sound present and S2 normal heart sound present GI: COMMON NORMALS: Normal to inspection, nondistended, normoactive bowel sounds present, Soft to palpation, non-tender, No hepatosplenomegaly present, no masses and no bruits PALPATION: Yes Soft to palpation and Yes No hepatosplenomegaly present Extremity: COMMON NORMALS: capillary refill normal, no clubbing, cyanosis or edema, no calf tenderness and no pedal edema Neuro: COMMON NORMALS: patient oriented x3 Data : 07/25/20 05:00 07/25/20 05:00 Micro: Microbiology 07/21/20 23:20 Urine Culture - Final Urine,Clean Catch A&P Assessment and plan (1) New onset a-fib: Status: Acute (2) Delusional disorder: Status: Acute (3) Psychosis: Status: Acute Additional A&P Information New onset A. fib Chads vas is 5, has blood is 2 Now developing sinus pauses, sinus bradycardia which have resolved His dose of metoprolol has been cut down to 12.5 twice daily, will require a event monitor discharge Currently on therapeutic Lovenox 80 twice daily, Eliquis on discharge to eriatric psych Cardiology on consult Elevated troponins, likely supply demand ischemia related to atrial fibrillation, continue to monitor Abdominal aortic aneurysm, awaiting AAA repair by Dr. Manzano, likely will require surgery after geriatric psych stay Delusional disorder with psychosis Psychiatry on consult Patient is showing paranoia, recently mirtazapine and risperidone was started by psychiatrist Patient has no suicidal ideation but stated he rather has his AAA rupture instead of going for the repair I would continue mirtazapine for now only and hold risperidone Awaiting geriatric psych placement Dehydration with hypokalemia Resolved Full code DVT prophylaxis SCDs, Lovenox Cardiac diet Dehydration. Resolved. Continue oral hydration. Cholelithiasis. Symptomatic. Outpatient evaluation and follow-up with surgeon could be considered. Likely hematuria. CTA of the abdomen shows renal cyst, will have patient follow-up with urology The plan of care was discussed with the patient. He verbalized understanding and agreement. Patient will require placement to geriatric psych, awaiting placement Attestations Medical Necessity Statement*: Patient requires hospitalization for A. fib, delusional disorder, awaiting placement to geriatric psych Coding Level of Care Code Acute Lpn Rn Hospice for [facility] Fwd Diagnoses New onset a-fib I48.91 Delusional disorder F22 Psychosis F29
[2020-07-25 15:20] LABS: Coronavirus Test Green County Not Detected
--- NOTE | 2020-07-25 16:36 | PM.DCS ---
Discharge Providers Date of Admission: 07/21/20 11:30 Date of Discharge: July 25, 2020 Attending Provider at Admission: Camelia Ruiz MD Attending Provider at Discharge: Murphy Pinto MD Primary Care Provider: Olaf Swain DO Diagnoses at Discharge Discharge Diagnosis (1) New onset a-fib: Status: Acute (2) Delusional disorder: Status: Acute (3) Psychosis: Status: Acute Reason for Visit Reason for Visit: [facility] Hospital Course Hospital Course this is a 70 y/o M with a past medical history of HTN, AAA currenttly under evaluation for repair, who present to [facility] due to new onset atrial fibrillation and delusional disorder with psychosis New onset A. fib Cardiology consulted Chads vas is 5, has blood is 2, discharged on eliquis 5mg BID After patient was started on beta jairo her developed sinus pauses, sinus bradycardia which have resolved with reduction of dose of metoprolol, patient asymptomatic, no pace maker placement was required. His dose of metoprolol has been cut down to 12.5 twice daily monitor heart rate and blood pressure as outpatient monitor for signs of bleeding Elevated troponins, likely supply demand ischemia related to atrial fibrillation, no hest pain complaints Abdominal aortic aneurysm, awaiting AAA repair by Dr. Manzano, likely will require surgery after geriatric psych stay Delusional disorder with psychosis Psychiatry consulted, recommended inpatient geriatric psych evaluation Patient is showing paranoia, recently mirtazapine and risperidone was started by psychiatrist Patient has no suicidal ideation but stated he rather has his AAA rupture instead of going for the repair I would continue mirtazapine, hold risperidone Physical Exam Const: COMMON NORMALS: no acute distress and patient oriented x3 HENMT: COMMON NORMALS: normocephalic HEAD & SCALP: normocephalic Neck/C-Spine: COMMON NORMALS: no JVD Resp: COMMON NORMALS: normal respiratory effort, No retractions, No use of accessory muscles and clear to auscultation bilaterally AUSCULTATION: clear to auscultation bilaterally Cardio: COMMON NORMALS: no JVD, regular rate, S1 normal heart sound present and S2 normal heart sound present RATE: regular rate RHYTHM: abnormal rhythm HEART SOUNDS: S1 normal heart sound present and S2 normal heart sound present GI: COMMON NORMALS: Normal to inspection, nondistended, normoactive bowel sounds present, Soft to palpation, non-tender, No hepatosplenomegaly present, no masses and no bruits PALPATION: Yes Soft to palpation and Yes No hepatosplenomegaly present Extremity: COMMON NORMALS: capillary refill normal, no clubbing, cyanosis or edema, no calf tenderness and no pedal edema Neuro: COMMON NORMALS: patient oriented x3 Psych: COMMON NORMALS: mental status grossly normal Discharge Data Data Completed and Pending: Completed Studies During Hospitalization Category Date Time Status CT angio abdomen pelvis 28101 Urgen t Cat Scan 07/19/20 23:[address] angio chest PE protcl [id number] Urge nt Cat Scan 07/19/20 23:39 Completed XR chest 1V waldo ble [id number] Stat Exams 07/19/20 22:23 Completed CV echo complete* [id number] Routine Ultrasound 07/20/20 09:00 Completed US gall bladder 7 [id number] Urgent Ultrasound 07/20/20 00:32 Completed Pending at discharge Category Date Time Status Complete Blood Co unt w/Auto AM LABS Lab 07/26/20 04:00 Ordered Complete Blood Co unt w/Auto AM LABS Lab 07/27/20 04:00 Ordered Complete Blood Co unt w/Auto AM LABS Lab 07/28/20 04:00 Ordered Comprehensive Met abolic Panel AM LA BS Lab 07/26/20 04:00 Ordered Comprehensive Met abolic Panel AM LA BS Lab 07/27/20 04:00 Ordered Comprehensive Met abolic Panel AM LA BS Lab 07/28/20 04:00 Ordered Magnesium AM LABS Lab 07/26/20 04:00 Ordered Magnesium AM LABS Lab 07/27/20 04:00 Ordered Magnesium AM LABS Lab 07/28/20 04:00 Ordered SARS Covid-2 Anti gen Routine Lab 07/25/20 12:05 Uncollected Labs from last 24 hours 07/25/20 07/25/20 07/25/20 05:00 05:00 05:00 WBC RBC Hgb Hct MCV MCH MCHC RDW Plt Count MPV Neut % (Auto) Lymph % (Auto) [place] % (Auto) Eos % (Auto) Baso % (Auto) Neut # (Auto) Lymph # (Auto) [place] # (Auto) Eos # (Auto) Baso # (Auto) Nucleated RBC % (a uto) Nucleated RBCs # Sodium 142 Potassium 4.0 Chloride 103 Carbon Dioxide 29 Anion Gap 14.0 BUN 14 Creatinine 0.9 GFR Calculation 83.4 L Glucose 107 Calculated Osmolal ity 295 Calcium 9.2 Phosphorus 3.0 Magnesium 2.1 Total Bilirubin 0.8 AST 19 ALT 16 Alkaline Phosphata se 87 Creatine Kinase 82 Troponin T Gen 5 n g/L 26 H Total Protein 7.1 Albumin 3.8 Globulin 3.3 Nasal/Oral COVID-1 9 PCR 07/25/20 07/24/20 05:00 19:40 WBC 7.7 RBC 5.59 H Hgb 16.2 Hct 48.6 MCV 86.9 MCH 29.0 MCHC 33.3 RDW 13.6 Plt Count 300 MPV 8.8 Neut % (Auto) 52.4 Lymph % (Auto) 31.7 [place] % (Auto) 11.4 Eos % (Auto) 3.5 Baso % (Auto) 0.9 Neut # (Auto) 4.03 Lymph # (Auto) 2.4 [place] # (Auto) 0.9 Eos # (Auto) 0.3 Baso # (Auto) 0.1 Nucleated RBC % (a uto) 0 Nucleated RBCs # 0.0 Sodium Potassium Chloride Carbon Dioxide Anion Gap BUN Creatinine GFR Calculation Glucose Calculated Osmolal ity Calcium Phosphorus Magnesium Total Bilirubin AST ALT Alkaline Phosphata se Creatine Kinase Troponin T Gen 5 n g/L Total Protein Albumin Globulin Nasal/Oral COVID-1 9 PCR Not detected Vitals: Last Vital Signs Temp 97.8 F 07/25/20 15:17 Pulse 96 07/25/20 15:17 Resp 22 H 07/25/20 15:17 BP 89/71 07/25/20 15:17 Pulse Ox 95 07/25/20 15:17 Discharge Plan Discharge Patient Disposition: Xfer Other Condition: Stable Prescriptions: New metoprolol tartrate 25 mg Tablet 12.5 mg PO BID@0900,2100 30 Days Qty: 30 RF: 0 Eliquis 5 mg tablet 5 mg PO BID 30 Days Qty: 60 RF: 0 Continued potassium chloride 20 mEq tablet extended release 20 meq PO DAILY@1200 RF: 0 aspirin 81 mg tablet,delayed release (DR/EC) 81 mg PO DAILY@1200 RF: 0 Easy Fiber 3 gram/3.5 gram powder 2 tsp PO TID RF: 0 pravastatin 80 mg tablet 40 mg PO DAILY@1200 RF: 0 cilostazol 100 mg tablet 100 mg PO DAILY@1200 RF: 0 cholecalciferol (vitamin D3) 50 mcg (2,000 unit) capsule 2,000 unit PO DAILY@1200 RF: 0 omega-3 fatty acids 500 mg capsule 500 mg PO DAILY@1200 RF: 0 tamsulosin 0.4 mg capsule 0.4 mg PO DAILY@1200 RF: 0 risperidone 0.25 mg tablet 0.25 mg PO BID@1200,0000 RF: 0 Colace 100 mg capsule 100 mg PO BID@1200,0000 RF: 0 Remeron 15 mg tablet 7.5 mg PO DAILY@0000 RF: 0 Changed hydrochlorothiazide 25 mg tablet 12.5 mg PO DAILY Qty: 0 RF: 0 Discontinued amlodipine 5 mg Tablet 7.5 mg PO DAILY@1200 RF: 0 Discharge Orders: Discharge Order (Routine); Ordered 07/25/20 Ordered By: Murphy Pinto Referrals: Camelia Quezada MD [Physician] - 1 month Giovani Manzano MD [Physician] - 1 month Discharge Diet: Cardiac Discharge Activity: Resume usual activity Activity Restrictions/Additional Instructions: -discharged on eliquis for atrial fibrillation if any signs of bleeding go to emergency room -if lightheadedness or dizzyness, please check heart rate and blood pressure -follow up with cardiology in 1 month -follow up with dr. 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
--- NOTE | 2020-07-25 17:19 | PC.NURSE ---
Hand-off report given to Senior Yoana of [facility]. Report given to Seu.
--- NOTE | 2020-07-25 17:21 | PC.NURSE ---
Discharge Meds Talked to Sue at [facility] and she said, they can provided pt's new prescribed meds. She said they have pharmacy 18/01 since they are a hospital facility. Discuss to her the pt's new meds and continued meds as well as stopped meds. Fax discharge papers to the facility at the fax # provided-[phone].
--- NOTE | 2020-07-25 20:07 | P.PN_ITS ---
Subjective Subjective: Interval history: No more pauses. Heart rate remained stable. Medications: Reviewed: Yes Medication Review Details: Generic Name Dose Route Start Last Admin Trade Name Caitie PRN Reason Stop Dose Admin Aspirin 81 mg 07/20/20 12:00 07/20/20 11:02 Aspirin 81 Mg Ec Tablet PO 81 mg DAILY@1200 [facility] Administration Atorvastatin Calci um 20 mg 07/20/20 12:00 07/20/20 11:02 Atorvastatin 40 Mg Tablet PO 20 mg DAILY@1200 [facility] Administration Cilostazol 100 mg 07/20/20 12:00 07/20/20 11:02 Cilostazol 100 M g Tablet PO 100 mg DAILY@1200 [facility] Administration Labetalol HCl 200 mg 07/20/20 03:30 07/20/20 17:10 Labetalol 200 Mg Tablet PO 200 mg BID SHELLY Administration Mirtazapine 7.5 mg 07/21/20 00:00 07/20/20 23:06 Mirtazapine 15 M g Tablet PO 7.5 mg DAILY@0000 [facility] Administration Olanzapine 5 mg 07/20/20 03:29 07/21/20 03:55 Olanzapine 10 Mg Vial IM 5 mg Q8H PRN Administration SEVERE AGITATION Potassium Chloride 20 meq 07/20/20 12:00 07/20/20 11:02 Potassium Chlori de Er 20 Meq Table t PO 20 meq DAILY@1200 [facility] Administration Tamsulosin HCl 0.4 mg 07/20/20 12:00 07/20/20 11:02 Tamsulosin 0.4 M g Capsule PO 0.4 mg DAILY@1200 [facility] Administration Vitals/I&O/Wt Last Vital Signs Temp 97.8 F 07/25/20 16:54 Pulse 96 07/25/20 16:54 Resp 22 H 07/25/20 16:54 BP 143/99 07/25/20 18:12 Pulse Ox 95 07/25/20 16:54 07/25/20 07/25/20 07/25/20 06:59 14:59 22:59 Intake Total 120 / 1080 480 / 480 360 / 840 Balance 120 / 1080 480 / 480 360 / 840 Physical Exam Narrative: EXAM NARRATIVE: GENERAL: Patient is alert, awake and oriented x3. NECK: No jugular vein distension. HEENT: No cyanosis. No icterus. No pallor. HEART: Regular S1 and S2. No murmur, rub or gallop. LUNGS: Clear to auscultate bilaterally. ABDOMEN: Soft, nontender and nondistended. Positive bowel sounds. No guarding, rebound or tenderness. CENTRAL NERVOUS SYSTEM: Grossly nonfocal. EXTREMITIES: Lower extremities without edema bilaterally. Data : 07/25/20 05:00 07/25/20 05:00 A&P Assessment and plan (1) New onset a-fib: Continue metoprolol 12.5 mg p.o. twice daily and apixaban Status: Acute (2) Hypertension: Well-controlled continue medicine Status: Acute Qualifiers: Hypertension type: essential hypertension Qualified Code(s): I10 - Essential (primary) hypertension (3) AAA (abdominal aortic aneurysm): Follow-up with Dr. Jose Juan hathaway Status: Acute Qualifiers: Presence of rupture: without rupture Qualified Code(s): I71.4 - Abdominal aortic aneurysm, without rupture Attestations Medical Necessity Statement*: Patient require continuation hospitalization for above defined care Coding Level of Care Code Established Pt Acute Inlayer for Chg Fwd Patient Type Established History Detailed Exam Detailed Medical Decision Making Moderate Complexity Diagnoses New onset a-fib I48.91 Hypertension I10 Hypertension type: essential hypertension AAA (abdominal aortic aneurysm) I71.4 Presence of rupture: without rupture
== END 2020-07-25 18:59 | DRG 309 ==
LOC: ER 07-20 01:24 → CSU 07-20 01:59
PROVIDERS: Family Medicine; Internal Medicine; Physician Assistant; Admitting Provider Internal Medicine; Emergency Provider Emergency Medicine; PCP Emergency Medicine Emergency Medical Services; Visit Provider Family Medicine
DX: I48.91 Unspecified atrial fibrillation (principal); R45.851 Suicidal ideations; I95.9 Hypotension, unspecified; E87.6 Hypokalemia; I71.4 Abdominal aortic aneurysm, without rupture; F43.21 Adjustment disorder with depressed mood; F41.9 Anxiety disorder, unspecified; N40.0 Benign prostatic hyperplasia without lower urinary tract symptoms; K57.90 Diverticulosis of intestine, part unspecified, without perforation or abscess without bleeding; E78.00 Pure hypercholesterolemia, unspecified; I10 Essential (primary) hypertension; F43.10 Post-traumatic stress disorder, unspecified; Z85.828 Personal history of other malignant neoplasm of skin; F17.210 Nicotine dependence, cigarettes, uncomplicated; F22 Delusional disorders; F29 Unspecified psychosis not due to a substance or known physiological condition; E86.0 Dehydration; K80.20 Calculus of gallbladder without cholecystitis without obstruction; I48.92 Unspecified atrial flutter; Z79.82 Long term (current) use of aspirin; R00.1 Bradycardia, unspecified; R31.9 Hematuria, unspecified
CPT/HCPCS: 12345; 36415; 71045; 71275; 74174; 76705; 80048; 80053; 80061; 80069; 80306; 80307; 81001; 81003; 82550; 83605; 83735; 84100; 84145; 84443; 84484; 85025; 87086; 87426; 87635; 93005; 93306; 96372; 99283; G0378; J1650; J3490; J7030; Q9967

== ENCOUNTER 2020-10-01 07:55 | Outpatient (CLI) | payer OTHER, SELFPAY ==
[2020-10-01 08:23] VITALS: BMI 23.8
--- NOTE | 2020-10-01 08:24 | NMCV_ITS ---
NM catherine perf SPECT r/s* [id number] Lalo Marr Age: 70 Gender: M : 1950 Exam Date: 10/01/2020 09:08 Ordering Phys: Camelia Quezada MD ([email or web address]) Technologist: VERONIKA Clayton Exam Location: [facility] Indications: SOB STRESS TEST [facility] IMAGE PROTOCOL Rest/Stress 1 Lexiscan Day Radiopharmaceutical Dose (mCi) Administration Site Administered by Rest: Tc-99m 10.6 IV VERONIKA Shirley Sestamibi Stress:Tc-99m 32.5 IV VERONIKA Shirley Sestamibi Rest: 01-Oct-2020 60 Discovery 630 Stress: 01-Oct-2020 30 Discovery 630 0.4mg Lexiscan. Supine position only as patient was unable to lay prone. SPECT RESULTS Technical Quality: Excellent Raw Data Analysis: Normal Image Corrections: No attenuation or motion correction applied Summed Stress Score: 2 Summed Rest Score: 0 Summed Difference Score: 2 PERFUSION FINDINGS Large area of patchy decreased tracer uptake with mild to moderate reversibility noted in basal to distal inferior inferoseptal wall on both rest and stress images. It is suggestive of old myocardial infarction surrounded by mild to moderate joshua-infarct ischemia in the RCA territory. 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 EKG segment will be documented separately Camelia Quezada MD (Electronically Signed) Final Date: 01 October 2020 19:16 S
--- NOTE | 2020-10-01 08:24 | ECG_ITS ---
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 The perfusion scan will be documented separately. DATA: Baseline heart rate was 80 beats per minute. Baseline blood pressure was 129/79 millimeters of mercury. Target heart rate was 150. Maximum heart rate achieved was 105, which was 70 % of the predicted target heart rate. Maximum blood pressure was 157/99 millimeters of mercury. The reason for ending the test was completion of the protocol. The patient did not experience any symptoms. ELECTROCARDIOGRAM: BASELINE: Atrial fibrillation. Normal axis. Otherwise, no ST-T changes suggestive of ischemia noted. No arrhythmia noted. After Lexiscan injection, no ST-T changes suggestive of ischemic noted. No arrhythmia noted. CONCLUSION: Please note due to baseline abnormality of the EKG specificity and sensitivity of the EKG portion of LexiScan MIBI stress test will be low 1. EKG not suggestive of ischemia 2. Lexiscan injection unremarkable. 3. Perfusion scan will be documented separately. Electronically Signed On 10-10-2020 20:47:06 CDT by CAMELIA QUEZADA [id number]
[2020-10-01] MEDS: regadenoson 0.4 Mg/5 ml Syringe IVP (10:24)
[2020-10-01 10:36] VITALS: BP 119/68; PULSE 93
== END 2020-10-01 07:56 | disposition home or self-care (01) ==
LOC: RAD 07:59 → CCL 08:06 → CDL 08:23
PROVIDERS: PCP Emergency Medicine Emergency Medical Services; Visit Provider Internal Medicine Cardiovascular Disease
DX: Z01.818 Encounter for other preprocedural examination (principal); I71.4 Abdominal aortic aneurysm, without rupture; R06.02 Shortness of breath
CPT/HCPCS: 78452; 93017; A9500; J2785

== ENCOUNTER → 2020-10-31 08:43 | Outpatient (BNVA) | payer OTHER, SELFPAY | PROVIDERS: PCP Emergency Medicine Emergency Medical Services; Visit Provider Internal Medicine Cardiovascular Disease | DX: Z20.822 Contact with and (suspected) exposure to COVID-19 (principal); I10 Essential (primary) hypertension | CPT/HCPCS: 87635 ==

== ENCOUNTER 2020-11-05 07:14 | Day surgery (SDC) | payer OTHER, SELFPAY ==
[2020-10-31 09:14] LABS: Basophils # 0.1 10^3/uL (0.0-0.1); Basophils % 0.9 %; Eosinophils # 0.2 10^3/uL (0.0-0.8); Eosinophils % 3.5 %; Hematocrit 50.2 % (42.0-52.0); Hemoglobin 16.3 g/dL (11.7-16.6); Lymphocytes # 2.3 10^3/uL (0.8-4.8); Lymphocytes % 33.1 %; Mean Corpuscular HGB Conc 32.5 g/dL (30.0-36.0); Mean Corpuscular Hemoglobin 28.4 pg (28.0-34.0); Mean Corpuscular Volume 87.6 fL (80-94); Mean Platelet Volume 8.5 fL (7.4-10.4); Monocytes # 0.7 10^3/uL (0.2-0.9); Monocytes % 9.7 %; Neutrophils # 3.62 10^3/uL (1.8-7.7); Neutrophils % 52.7 %; Nucleated Red Blood Cells % 0 %; Platelet Count 293 10^3/cmm (130-400); Red Blood Count 5.73 10^6/uL (4.1-5.3); Red Cell Distribution Width 14.1 % (12.1-15.1); White Blood Count 6.9 10^3/uL (4.0-10.0)
[2020-10-31 09:52] LABS: Anion Gap 10.5 (5-19); Blood Urea Nitrogen 14 mg/dL (8-23); Calcium 9.1 mg/dL (8.5-10.5); Carbon Dioxide 32 mmol/L (22-29); Chloride 99 mmol/L (98-107); Glomerular Filtration Rate 83.4 mL/min (90-130); Glucose 117 mg/dL (65-115); Osmolality Calculated 288 mOsm/kg (285-295); Potassium 3.5 mmol/L (3.5-5.1); Sodium 138 mmol/L (136-145)
[2020-11-04 09:39] VITALS: BMI 23.7
[2020-11-05] VITALS (16 sets, daily range): BP systolic 129–159; BP diastolic 76–103; PULSE 73–99; RESP 16–28; TEMP 36.6; O2SAT 94–98; BMI 23.8
--- NOTE | 2020-11-05 07:30 | XACV_ITS ---
Ht: 183 cm Wt: 80 kg BSA: 2.02 m2 Gender: Male : 1950 Any Known Allergies: No known allergies Exam Priority: Routine Procedure(s): Procedure Description: Diagnostic procedure Procedure Description: Left Heart Catheterization Procedure Description: Coronary Angiography Procedure Description: Pressure Wire Diagnostic Cath Status: Elective Diagnostic Findings * Left Anterior Descending has no disease. * Circumflex has no disease. * Left Main: mild 40% stenosis, SONJA: 3 flow. * Distal Left Anterior Descending to Posterior Descending Right collaterallization. * Distal Right Coronary Artery: severe 90% stenosis, SONJA: 3 flow. * Distal Circumflex to Right Posterior AV collaterallization. * Coronary angiography shows right dominance. Conclusions 1. FFR: After equalizing the distal and proximal pressure of FFR wire proximal to the lesion, distal LM, lesion was crossed with FFR wire into LAD. IV adenosine at rate of 140 mcg/min was started. Patient did not compliant of any symptoms, at then end of two minutes FFR was recorded as 0.87, which is not significant . 2. There is severe coronary artery disease with two vessel disease. Recommendations * Continue current medical management and risk factor modification. Pressures Phase:Rest AO : 94 / 10 ( 36 ) @ 7:26:00 AM 82 / 51 ( 58 ) @ 7:26:00 AM 87 / 76 ( 82 ) @ 7:33:00 AM LV : 110 / 0 / 16 @ 7:25:00 AM Clinical Evaluation EBL: 5mL-10mL Procedural Details Procedure Consent Obtained. Current Diagnosis : Chest Pain. Pre-Procedure Time Out. Identified patient by full name and date of as verbalized by the patient/guarantor. Does the consent match the physician's order: Yes. Accurate & Complete Informed Consent: Yes. Inpatient/Outpatient History & Physical on Chart: Yes. If H&P is completed, is and addenduem needed: No; If yes, is the addendum complete: N/A. Visualize and Verify Site with Patient/Guarantor: N/A. Relevant Radiology Images available: N/A. Pre-op teaching completed and patient verbalized understanding. The risks, benefits, and alternatives of sedation and/or procedure were discussed by physician. The patient agrees to continue. Procedure started. [facility] Clinical Fraility Score: 3: Managing Well. 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 Chest Pain Symptom Assessment: Atypical Angina. Cardiovascular Instability: No. Correct patient, site and procedure confirmed by cath team. PERRLA. Strong, equal hand personnel quality assurance auditor bilaterally. Lungs clear x 5 lobes. IV Site on Arrival: 20 gauge in the left anticubital. IV Fluids: 0.9% NaCl at KVO. 0 mL infused prior to director of cardiac cath lab. Pre Procedural Pulses: bilateral dorsalis pedis was Doppled. Pre Procedural Pulses: right posterior tibial was 1+. Pre Procedural Pulses: left posterior tibial was Doppled. Pre Procedural Pulses: bilateral radial was 3+. Physician arrived. Equipment: 6F - Radial. Cardiac Cath Pack. ACIST Manifold Kit Model BT 2000. Heparinized Saline (2 units/mL), 1000 mL bag. Oxygen started at 2liters/min via nasal canula. bilateral groins was prepped with chloroprep then draped in the usual sterile fashion. right radial was prepped with chloroprep then draped in the usual sterile fashion. Baseline sample Acquired. HR: 77 BPM. Physician scrubbed in. Immediate Pre-Procedure Time Out. Correct Patient: Yes; Correct Procedure: Yes; Correct Site: Yes; Correct Patient Position: Yes; Correct Supplies: Yes; Dried Flammable Prep: Yes; Blood Products Available: N/A;. Lidocaine 1% infiltrated to the right radial. Arterial access obtained. A 5 ethiopian TIG catheter in over wire. EDP Sample taken: LV 110/-1,16; HR: 83 BPM; SpO2: 96%. Pullback taken: LV Off; AO Off; Mean: , Peak to Peak: , SEP: ; HR: 86 BPM; SpO2: 95%. Catheter redirected to the RCA. Multiple views taken of left coronary artery. Multiple views taken of right coronary artery. Lesion found in LMCA. IVUS not available. AP pads applied to patient. Catheter removed over the exchange wire. 6 ethiopian JL 3.5 guide catheter was inserted over the wire. Inventory is CRD 6FR JL 3.5 GUIDE. FFR guidewire was advanced through the guide catheter to lesion in the prox LAD. AO pressure reading 113/72 (90). An FFR value of 0.87 was obtained for a lesion located at LMCA. Wire out. Fractional flow reserve measurements obtained. Results checked. Guide catheter out. Physician scrubbed out. A TR Band was successful obtaining hemostatsis at the Right Radial artery insertion site. TR band placed. Hemostasis obtained. Post Procedure: Pulses reassessed and unchanged. PERRLA. Strong, equal hand personnel quality assurance auditor bilaterally. No VTE prophylaxis required. Medication's Wasted: Lidocaine 1% = 14 mL. Medication's Wasted: Nitro = 49.8 mg. Medication's Wasted: Other = adenosine 67 mg. Medication's Wasted: Heparin = 4000 units. Medication's Wasted: Other = versed 1.5 mg. Medication's Wasted: Other = fentanyl 25 mcg. Total IV fluids: 300 mL. Contrast type used: Visipaque 320 mgI/mL, 500 mL bottle. Complications: none. Post-op diagnosis: CAD. Estimated blood loss: 5mL-10mL. Procedure completed. Patient transferred by wheelchair to CPRU. Vital chart was stopped. Access Site Site: Right Radial artery Sheath Size: 6 Fr Hemostasis Method: TR Band Hemostasis Success: Successful Procedure Medications Start: 8:06 AM Stop: 8:06 AM Medication: Versed Amount: 1 mg Route: I.V. Start: 8:06 AM Stop: 8:06 AM Medication: Fentanyl Amount: 50 mcg Route: I.V. Start: 8:16 AM Stop: 8:16 AM Medication: Versed Amount: 1 mg Route: I.V. Start: 8:23 AM Stop: 8:23 AM Medication: Nitrogylcerin Amount: 200 mcg Route: I.A. Start: 8:25 AM Stop: 8:25 AM Medication: Heparin Amount: 5000 units Route: I.V. Start: 8:25 AM Stop: 8:25 AM Medication: Fentanyl Amount: 25 mcg Route: I.V. Start: 8:28 AM Stop: 8:28 AM Medication: 0.9% Saline Amount: 250 ml Route: I.V. bolus Start: 8:39 AM Stop: 8:39 AM Medication: Heparin Amount: 2000 units Route: I.V. Start: 8:56 AM Stop: 8:56 AM Medication: Versed Amount: 0.5 mg Route: I.V. I, the attending physician, have reviewed and verified all procedure medications. Yes, all medications given per verbal order History/Risk Factors Hypertension: Yes Dyslipidemia: Yes Peripheral Arterial Disease (PAD): No Myocardial Infarction (WV): No Obesity: No Renal Disease: No Tobacco Use: Current/Recent(w/in 1 year) Prior Interventions PCI: No CABG: No Valve Surgery: No Report Signatures Finalized by Camelia Quezada MD on 11/16/2020 10:31 PM
--- NOTE | 2020-11-05 07:40 | W.PM.OPSFHP ---
Same Day Surgery H&P Indication for Procedure/HPI DATE OF PROCEDURE: November 05, 2020 CHIEF COMPLAINT/INDICATIONFOR SURGICAL PROCEDURE: Abnormal stress test, preoperative for vascular intervention AAA repair PREOP DIAGNOSIS: Abnormal stress test, preop PLANNED PROCEDRUE: Operation Date: 11/05/20 08:30 Proposed Procedures p Cardiac Catheterization 80975 R94.39(Left) - Camelia Quezada MD 70-year-old male past medical history significant for hypertension hyperlipidemia atrial fibrillation on anticoagulation and abdominal aortic aneurysm who was to undergo AAA repair by Dr. Manzano had a stress test for risk assessment. Stress test was suggestive of inferior wall moderate joshua-infarct ischemia it is the reason patient is here for left heart cath. Patient has been explained all risk benefit and alternative for the procedure. Patient has been explained risk for urgent emergent bypass surgery, major minor bleed leading to transfusion, arrhythmia, stroke, renal failure due to contrast-induced nephropathy or embolic phenomena and worse case scenario . He understood it and would like to proceed with it. Medications/Allergies* Home Medications Medication Instructions Recorded Confirmed Type cholecalciferol (vitamin D3) 50 2,000 unit PO DAILY@1200 08/18/19 11/04/20 History mcg (2,000 unit) capsule omega-3 fatty acids 500 mg capsule 500 mg PO DAILY@1200 08/18/19 11/04/20 History tamsulosin 0.4 mg capsule 0.4 mg PO DAILY@1200 08/18/19 11/04/20 History aspirin 81 mg tablet,delayed 81 mg PO DAILY@1200 08/22/19 11/04/20 History release dextrin 3 gram/3.5 gram oral powder 2 tsp PO TID 08/22/19 11/04/20 History cilostazol 100 mg tablet 100 mg PO DAILY@1200 tab 05/09/20 11/04/20 History pravastatin 80 mg tablet 40 mg PO DAILY@1200 tab 05/09/20 11/04/20 History docusate sodium [Colace] 100 mg PO BID@1200,0000 07/19/20 11/04/20 History apixaban 5 mg tablet 5 mg PO BID 09/05/20 11/04/20 History diltiazem HCl 120 mg 120 mg PO DAILY 09/05/20 11/04/20 History capsule,extended release 24 hr potassium chloride 20 mEq 10 meq PO DAILY@1200 tab 09/05/20 11/04/20 History tablet,extended release melatonin 3 mg capsule 3 mg PO DAILY 09/11/20 11/04/20 History quetiapine 50 mg tablet 50 mg PO DAILY 09/11/20 11/04/20 History vitamin E 200 unit capsule 200 unit PO DAILY 09/11/20 11/04/20 History Allergies/Adverse Reactions Allergy/AdvReac Type Severity Reaction Status Date / Time No Known Allergies Allergy Verified 11/04/20 09:37 Pertinent History/Comorbid Conditions* Medical History (Updated 09/14/20 @ 18:56 by Camelia Quezada MD) AAA (abdominal aortic aneurysm) Adjustment disorder with depressed mood Anxiety BPH (benign prostatic hyperplasia) Diverticulosis Hypercholesterolemia Hypertension OCD (obsessive compulsive disorder) (~2013) PTSD (post-traumatic stress disorder) Surgical History (Updated 09/06/19 @ 08:51 by Simone Marvin MD) History of colonoscopy (~2013) diverticulosis S/P bilateral inguinal hernia repair Status post surgical removal of malignant neoplasm of skin Family History (Updated 08/22/19 @ 13:30 by Federica Gregg RN) Diabetes Father Cancer Family/Other brother- colon cancer Mother colon cancer Hypertension Family/Other brother Denies family history of Anesthesia complication Bleeding disorder Social History Smoking and tobacco status: current every day smoker cigarettes Packs smoked per day: 0.5 Years cigarettes smoked: 50 Second hand smoke exposure: No Alcohol intake: never Desire information about alcohol rehabilitation?: No Adopted: No Caregiver/support person: Yes Lives independently: Yes Household members: spouse Housing: House Marital status: service: Yes branch: [employer] Current occupational status: retired Current occupational exposures/hazards: No Pets and animals: No History of recent travel: No Sexually active: No Current gender identity: Male Meron/Jew: Jehovah'S Witness Special meron needs: No Agree to transfusion: No Financial difficulty paying for basics: Decline to Answer Pertinent Exam Findings alert, oriented x 3 and clear to auscultation bilaterally Conscious Sedation Assessment PATIENT ASSESSED PRIOR TO SEDATION, WITH NO CHANGE NOTED: Yes AIRWAY EVAL/ANESTHESIA PLAN: ASA II, Risks, benefits & alternatives of sedation and/or procedure discussed and Patient agrees to continue as planned Recommendations Surgery/Procedure today Coding Level of Care Code Acute Fairground Operator for Silvino Mariee
[2020-11-05] MEDS: diphenhydrAMINE 50 mg Capsule PO (07:48)
--- NOTE | 2020-11-05 09:47 | PC.NURSE ---
cpru received pt from cathode maker via wheelchair post diagnostic only [facility]. pt alert and oriented x3. complains of no pain. tr band in place on right wrist, palpable pulses below band. fluids started and pt placed on monitor to capture vitals every 15 minutes. at bedside helping with breakfast tray. pt educated on restrictions of right wrist and acknowledged understanding. no questions at this time and will continue to educate through recovery. plan to dc at 3 hrs if tr band removes without incident.
== END 2020-11-05 13:19 | disposition home or self-care (01) ==
PROVIDERS: PCP Emergency Medicine Emergency Medical Services; Visit Provider Internal Medicine Cardiovascular Disease
DX: I25.10 Atherosclerotic heart disease of native coronary artery without angina pectoris (principal); R94.39 Abnormal result of other cardiovascular function study; I10 Essential (primary) hypertension; E78.5 Hyperlipidemia, unspecified; I48.91 Unspecified atrial fibrillation; Z79.82 Long term (current) use of aspirin; F41.9 Anxiety disorder, unspecified; N40.0 Benign prostatic hyperplasia without lower urinary tract symptoms; E78.00 Pure hypercholesterolemia, unspecified; F17.210 Nicotine dependence, cigarettes, uncomplicated
CPT/HCPCS: 36415; 80048; 85025; 85610; 93452; C1769; C1887; C1894; J0153; J1644; J2250; J3010; J3490; J7030; Q0163; Q9967

== ENCOUNTER → 2020-11-11 11:37 | Outpatient (BNVA) | payer OTHER, SELFPAY | PROVIDERS: PCP Emergency Medicine Emergency Medical Services; Visit Provider Nurse Practitioner Family | DX: I71.4 Abdominal aortic aneurysm, without rupture (principal); Z09 Encounter for follow-up examination after completed treatment for conditions other than malignant neoplasm | CPT/HCPCS: 80048 ==

== ENCOUNTER 2021-02-19 08:05 | Outpatient (CLI) | payer OTHER, SELFPAY ==
--- NOTE | 2021-02-19 08:30 | CT_ITS ---
WS: [id number] CT ANGIOGRAPHY abdomen and pelvis. HISTORY: I71.4 - Abdominal aortic aneurysm, without rupture TECHNIQUE: CT angiogram is performed during IV injection. Reformation images reviewed. All CT scans a [facility] use at least one of these dose optimization techniques: automated exposure co ntrol; mA and/or kV adjustment per patient size (includes targeted exams where dose is matched to cli nical indication); or iterative reconstruction. CONTRAST: Omnipaque 350; 95 mL IV. DLP: 898.5 mGycm COMPARISON: 07/19/2020 Advanced emphysematous changes at the lung bases. No mass or nodule. Normal size heart. Small hiatal hernia. Abdominal aorta: Abdominal aortic aneurysm extends over length of 7.1 cm. Maximum transverse diameter 4.4 cm and anterior posterior diameter 4.3 cm. No significant increase in size as compared to 021. Moderate calcified plaque within the wall of the aorta. There is also asymmetric intimal thicken ing throughout the aneurysmal dilatation. This intimal thickening has mildly progressed since the ameena or study. Focal ulcerated plaque is new extending anteriorly into the infrarenal aorta. New contrast enhancing penetrating ulcer is contained within the aneurysm. Iliac arteries are patent bilaterally. Mild aneurysmal dilatation of 1.5 cm of the proximal RIGHT common iliac artery. Small noncalcified pl aque at the origins of the SMA and celiac axis with no high-grade stenosis. Renal arteries are patent . AMANDA is patent. Early enhancement of the liver and spleen and pancreas are negative. No acute abnormalities. No bile duct dilatation. Cholelithiasis without acute cholecystitis. No adrenal mass. Bilateral low-attenuati on masses within each kidney. These are unchanged in size and probably representing cysts. Cannot be further characterized on this early arterial enhancement. No new or solid mass identified. Diffuse constipation. Extensive diverticular disease without acute inflammation. Appendix is normal. No free fluid or adenopathy. Enlarged prostate encroaching into the urinary bladder. Mild bladder wal l thickening. Bilateral moderate narrowing of the hip joints and osteophytosis. CT/CT angio abdomen pelvis [id number] IMPRESSION: 1. Stable diameter of the infrarenal aorta. Maximum transverse diameter 4.4 cm and AP diameter 4.3 cm. 2. New penetrating 1.5 cm enhancing ulcer into the thrombus of the anterior, i nfrarenal aorta. 3. 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 4. Cholelithiasis. 5. Extensive diverticulosis. 6. Bilateral renal cysts. 7. Extensive prostate gland enlargement. Notified Giovani Manzano MD at 02/19/2021 9:51 AM.
[2021-02-19 09:16] LABS: Blood Urea Nitrogen 17 mg/dL (8-23); Glomerular Filtration Rate 59.9 mL/min (90-130)
[2021-02-19] MEDS: iohexol 350 mg/mL 100 mL Btl IV (09:29)
== END 2021-02-19 08:06 | disposition home or self-care (01) ==
PROVIDERS: PCP Emergency Medicine Emergency Medical Services; Visit Provider Thoracic Surgery (Cardiothoracic Vascular Surgery)
DX: I71.4 Abdominal aortic aneurysm, without rupture (principal); N40.0 Benign prostatic hyperplasia without lower urinary tract symptoms; Q61.02 Congenital multiple renal cysts; K57.90 Diverticulosis of intestine, part unspecified, without perforation or abscess without bleeding; K80.20 Calculus of gallbladder without cholecystitis without obstruction; I72.3 Aneurysm of iliac artery
CPT/HCPCS: 74174; 82565; 84520; Q9967

== ENCOUNTER 2021-09-04 11:32 | Outpatient (CLI) | payer OTHER, SELFPAY ==
--- NOTE | 2021-09-04 12:00 | CT_ITS ---
WS: [id number] CTA ABDOMEN PELVIS TECHNIQUE: Contrast enhanced CTA of the abdominal aorta with coronal and sagittal reformatted images and additional MIP Images. CLINICAL INFORMATION: I71.4 - Abdominal aortic aneurysm, without rupture COMPARISON: February 19, 2021 DLP: 874.[address] scans at [facility] use at least one of these dose optimization techniques: automated e xposure control; mA and/or kV adjustment per patient size (includes targeted exams where dose is matc hed to clinical indication); or iterative reconstruction. FINDINGS: Saccular infrarenal abdominal aortic aneurysm with peripheral mural thrombus. Again seen is the focal ulcerative plaque in the infrarenal abdominal aorta with penetrating ulcer which is unchanged in rekha earance. 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 Infrarenal abdominal aortic aneurysm measures 4.3 x 4.2 x 7.2 cm AP by transverse by craniocaudal unchanged. Mild aneurysmal dilatation of the proximal RIGHT common iliac artery measu ring 1.5 cm is unchanged. Mild calcification at the celiac and SMA origins which are patent. Proximal renal arteries are patent . Normal renal parenchymal enhancement. Stable bilateral renal cysts. Diffuse fatty infiltration live r. Cholelithiasis. Adrenal glands are normal. Normal pancreatic parenchymal enhancement. Normal splee n. Small esophageal hiatal hernia. Lung bases are well aerated. Sigmoid diverticulosis. Enlarged prostate with mild bladder wall thickening unchanged. Recommend ian elation PSA. Prostate measures 5.9 cm with thickening of the seminal vesicles bilaterally. No abdomin al or pelvic lymphadenopathy. No inguinal lymphadenopathy. Hypertrophic changes lumbar spine. CT/CT angio abdomen pelvis [id number] IMPRESSION: 1. Stable infrarenal abdominal aortic aneurysm measuring 4.3 x 4.2 x 7.2 cm AP by transverse by craniocaudal. 2. Stable area of focal ulceration with small pseudoaneurysm in the infrarenal abdominal aorta. 3. Associated pseudoaneurysm measuring 1.7 x 2.4 x 2.3 cm AP by transverse by craniocaudal slightly larger today. 4. Celiac and SMA are patent. 5. Additional nonvascular findings described above 6. Enlarged prostate. Recommend correlation PSA. Associated thickening of the seminal vesicles.
[2021-09-04 12:13] LABS: Blood Urea Nitrogen 13 mg/dL (8-23)
[2021-09-04] MEDS: iohexol 350 mg/mL 100 mL Btl IV (12:21)
== END 2021-09-04 11:33 | disposition home or self-care (01) ==
LOC: RAD 11:36
PROVIDERS: PCP Emergency Medicine Emergency Medical Services; Visit Provider Thoracic Surgery (Cardiothoracic Vascular Surgery)
DX: I71.4 Abdominal aortic aneurysm, without rupture (principal); N40.0 Benign prostatic hyperplasia without lower urinary tract symptoms
CPT/HCPCS: 74174; 82565; 84520

== ENCOUNTER → 2021-10-02 09:50 | Outpatient (BNVA) | payer OTHER, SELFPAY | PROVIDERS: PCP Emergency Medicine Emergency Medical Services; Visit Provider Thoracic Surgery (Cardiothoracic Vascular Surgery) | DX: I71.4 Abdominal aortic aneurysm, without rupture (principal); Z87.891 Personal history of nicotine dependence; Z79.01 Long term (current) use of anticoagulants | CPT/HCPCS: 99213; 99215 ==

== ENCOUNTER → 2021-11-05 08:54 | Day surgery (SDC) | payer OTHER, SELFPAY | PROVIDERS: PCP Emergency Medicine Emergency Medical Services; Visit Provider Thoracic Surgery (Cardiothoracic Vascular Surgery) | DX: Z01.818 Encounter for other preprocedural examination (principal) | CPT/HCPCS: 93005 ==

== ENCOUNTER 2021-11-11 07:33 | Inpatient (IN) | payer OTHER, SELFPAY ==
--- NOTE | 2021-11-05 08:54 | ECG_ITS ---
[facility] Test Date: 2021-11-05 Pat Name: Lalo Marr Department: Room: Gender: Male Wrist Liner: : 1950 Requested By: Billy Cueto Order Number: [id number] Vikram MD: Kelvin Lora M.D. Measurements Intervals [place] Rate: 68 P: -69 GA: 115 QRS: 17 QRSD: 88 T: 55 QT: 399 QTc: 426 Interpretive Statements JUNCTIONAL RHYTHM WITH FREQUENT SUPRAVENTRICULAR PREMATURE COMPLEXES ABNORMAL RHYTHM ECG Compared to ECG 07/25/2020 09:39:37 Junctional rhythm now present Atrial flutter no longer present ST (T wave) deviation no longer present Electronically Signed On 11-07-2021 0:10:06 CDT by Kelvin Lora M.D. [id number]
[2021-11-05 08:58] VITALS: BMI 22.9
[2021-11-05 09:51] LABS: Basophils # 0.1 10^3/uL (0.0-0.1); Basophils % 0.6 %; Eosinophils # 0.3 10^3/uL (0.0-0.8); Eosinophils % 2.7 %; Hematocrit 48.8 % (42.0-52.0); Hemoglobin 16.2 g/dL (11.7-16.6); Lymphocytes # 2.9 10^3/uL (0.8-4.8); Lymphocytes % 24.2 %; Mean Corpuscular HGB Conc 33.2 g/dL (30.0-36.0); Mean Corpuscular Hemoglobin 28.6 pg (28.0-34.0); Mean Corpuscular Volume 86.1 fl (80-94); Mean Platelet Volume 9.1 fL (7.4-10.4); Monocytes # 0.9 10^3/uL (0.2-0.9); Monocytes % 7.2 %; Neutrophils # 7.85 10^3/uL (1.8-7.7); Neutrophils % 65.1 %; Nucleated Red Blood Cells % 0 %; Platelet Count 286 10^3/cmm (130-400); Red Blood Count 5.67 10^6/uL (4.1-5.3); Red Cell Distribution Width 14.4 % (12.1-15.1); White Blood Count 12.1 10^3/uL (4.0-10.0)
--- NOTE | 2021-11-05 09:57 | P.ANESASSM_ITS ---
Pre-Anesthetic Assessment Height/Weight: Height 1.83 m Weight 76.657 kg Preop Diagnosis: Endovascular AAA repair Operation Date: 11/11/21 07:00 Proposed Procedures p AAA Stent Cutdown(Not Applicable) - Giovani Manzano MD Operation Date: 11/11/21 07:00 Proposed Procedures p Endovascular Aortic Repair(Not Applicable) - Giovani Manzano MD Familial anesthetic complications: None Was Beta Luis taken within 24 hours: N/A Was Clonidine taken within 24 hours: N/A Social Tobacco and No alcohol Exam alert, oriented x 3 and regular rate & rhythm rhonchi Airway Submandibular: within normal limits Cervical ROM: within normal limits Mallampati: Class II Dentition: chipped Pulmonary Chronic Obstructive Pulmonary Disease CV/HEM Atrial Fibrillation, Arrythmia, Coronary Artery Disease (noncritical), Hypertension and Peripheral Vascular Disease (infrarenal AAA) Metabolic Hyperlipidemia Neuropsych Anxiety and Depression PTSD, h/o psychosis Anesthetic Plan ASA status: 3 Anesthesia: General Other: A.line Medications/Allergies Home Medications Medication Instructions Recorded Confirmed Last Taken Type cholecalciferol (vitamin D3) 50 2,000 unit PO DAILY@1200 08/18/19 11/05/21 11/04/20 09:00 History mcg (2,000 unit) capsule omega-3 fatty acids 500 mg capsule 500 mg PO DAILY@1200 08/18/19 11/05/21 11/04/20 19:00 History tamsulosin 0.4 mg capsule 0.4 mg PO DAILY@1200 08/18/19 11/05/21 11/04/20 19:00 History aspirin 81 mg tablet,delayed 81 mg PO DAILY@1200 08/22/19 11/05/21 11/04/20 19:00 History release cilostazol 100 mg tablet 100 mg PO DAILY@1200 tab 05/09/20 11/05/21 11/04/20 08:00 History pravastatin 80 mg tablet 40 mg PO DAILY@1200 tab 05/09/20 11/05/21 11/04/20 19:00 History docusate sodium 100 mg capsule 100 mg PO BID@1200,0000 07/19/20 11/05/21 07/18/20 History (Colace) hydrochlorothiazide 25 mg tablet 12.5 mg PO DAILY #0 tab 07/25/20 11/05/21 11/04/20 08:00 Rx apixaban 5 mg tablet (Eliquis) 5 mg PO BID 09/05/20 11/05/21 11/02/20 History diltiazem HCl 120 mg 120 mg PO DAILY 09/05/20 11/05/21 11/04/20 08:00 History capsule,extended release 24 hr potassium chloride 20 mEq 10 meq PO DAILY@1200 tab 09/05/20 11/05/21 11/04/20 09:00 History tablet,extended release melatonin 3 mg capsule 3 mg PO DAILY 09/11/20 11/05/21 11/04/20 23:00 History quetiapine 50 mg tablet (Seroquel) 50 mg PO DAILY 09/11/20 11/05/21 11/04/20 23:00 History vitamin E 200 unit capsule 200 unit PO DAILY 09/11/20 11/05/21 11/04/20 09:00 History Allergies Allergy/AdvReac Type Severity Reaction Status Date / Time No Known Allergies Allergy Verified 11/05/21 08:59 [facility] Anesthesia Medical History AAA (abdominal aortic aneurysm) Adjustment disorder with depressed mood Anxiety BPH (benign prostatic hyperplasia) Diverticulosis Hypercholesterolemia Hypertension New onset a-fib 07/19/20 OCD (obsessive compulsive disorder) (~2013) PTSD (post-traumatic stress disorder) Surgical History History of colonoscopy (~2013) diverticulosis S/P bilateral inguinal hernia repair Status post surgical removal of malignant neoplasm of skin Family History Family/Other Cancer brother- colon cancer Hypertension brother Mother Cancer colon cancer Father Diabetes Denies family history of Anesthesia complication Bleeding disorder Social History Smoking and tobacco status: former smoker Second hand smoke exposure: No Alcohol intake: never Desire information about alcohol rehabilitation?: No Adopted: No Caregiver/support person: Yes Lives independently: Yes Household members: spouse Housing: House Marital status: service: Yes branch: [employer] Current occupational status: retired Current occupational exposures/hazards: No Pets and animals: No History of recent travel: No Sexually active: No Current gender identity: Male Meron/Catholic: Pentecostalism Special meron needs: No Agree to transfusion: No Financial difficulty paying for basics: Decline to Answer Data Anesthesia : 11/05/21 09:20 11/05/21 09:20 Short CBC 11/05/21 Range/Units 09:20 WBC 12.1 H (4.0-10.0) 10^3/uL Hgb 16.2 (11.7-16.6) g/dL Hct 48.8 (42.0-52.0) % MCV 86.1 (80-94) fl Plt Count 286 (130-400) 10^3/cmm Neut % (Auto) 65.1 % Neut # (Auto) 7.85 H (1.8-7.7) 10^3/uL Cardiac Studies: Echocardiogram Ultrasound 07/20/20 Sestamibi Stress Test (Cardiology) 10/01/20
[2021-11-05 10:00] LABS: Anion Gap 10.5 (5-19); Blood Urea Nitrogen 14 mg/dL (8-23); Calcium 9.9 mg/dL (8.5-10.5); Carbon Dioxide 33 mmol/L (22-29); Chloride 98 mmol/L (98-107); Glucose 128 mg/dL (65-115); Osmolality Calculated 288 mOsm/kg (285-295); Potassium 3.5 mmol/L (3.5-5.1); Sodium 138 mmol/L (136-145)
[2021-11-05 10:12] LABS: Bilirubin Urine Neg (Negative); Glucose Urine UA Norm (Normal); Ketones Urine Negative (Negative); Leukocyte Esterase Urine Negative (Negative); Nitrate Urine Negative (Negative); Protein Urine Neg (Negative); Urine Appearance Clear (CLEAR); Urine Color Yellow (Yellow); Urobilinogen Urine Norm (Negative); pH Urine 7 (5-7)
[2021-11-05 10:13] LABS: Blood Urine 2+ (Negative)
[2021-11-05 10:14] LABS: Add Urine Microscopic? YES
[2021-11-05 10:16] LABS: RBC Urine 0-4 /hpf (0-2)
[2021-11-05 10:17] LABS: Add Urine Culture? No
--- NOTE | 2021-11-11 06:38 | PM.HP ---
Providers/Chief Complaint Admitting Physician: Dr. Manzano Primary Care Provider: Olaf Swain DO Chief Complaint: aaa History of Present Illness Mr. Marr is a pleasant 71-year-old gentleman with a near 5 cm infrarenal abdominal aortic aneurysm which we have been following since his original consultation with me back on May 09, 2020. Through serial exams, there has been a small area of ulceration just distal to the renal arteries which is shown some pseudoaneurysmal formation and has slightly increased. He is undergone close examination and underwent cardiac clearance including left heart catheterization last year by Dr. Quezada revealing right coronary artery disease and 40% left main stenosis. He has been treated medically. He also developed atrial fibrillation and was subsequently placed on Eliquis though he has been in sinus rhythm most recently. He is also struggle with delusions and psychosis but is felt to be stable at this time. He was last seen by me October 02 and recently completed an in-hospital evaluation and treatment for his psychosis and since returning home, he has been doing quite well. The infrarenal abdominal aneurysm has been relatively stable though there has been some confirmation changes and slight increase of the pseudoaneurysmal formation from the focal ulceration in the infrarenal neck of this aneurysm. He has undergoing careful preoperative evaluation and has been electively admitted today for planned attempt at endovascular repair. Review of Systems Const: Denies: fever(s), chills, change in appetite, change in weight, fatigue or night sweats Eyes: Denies: change in vision or blurry vision ENMT: Denies: odynophagia or hoarseness Card: Denies: chest pain, palpitations, irregular heart rhythm or edema Resp: Denies: dyspnea or productive cough GI: Denies: abdominal pain, nausea, vomiting, dysphagia, heartburn or change in bowel habits : Reports: difficulty urinating, urinary frequency and urinary hesitancy; Denies: dysuria or urinary urgency Musc: Reports: back pain; Denies: extremity pain or extremity swelling Skin/Breast: Denies: rash Neuro: Denies: headache(s), numbness in extremities, weakness in extremities or sensory changes Psych: Denies: anxiety, depression or change in appetite Endo: Denies: polyuria, polydipsia or cold intolerance Dennis/Lymph: Reports: easy bruising; Denies: easy bleeding, petechiae or enlarged lymph nodes Medications/Allergies Home Medications Medication Instructions Recorded Confirmed Last Taken Type cholecalciferol (vitamin D3) 50 2,000 unit PO DAILY@1200 08/18/19 11/05/21 11/04/20 09:00 History mcg (2,000 unit) capsule omega-3 fatty acids 500 mg capsule 500 mg PO DAILY@1200 08/18/19 11/05/21 11/04/20 19:00 History tamsulosin 0.4 mg capsule 0.4 mg PO DAILY@1200 08/18/19 11/05/21 11/04/20 19:00 History aspirin 81 mg tablet,delayed 81 mg PO DAILY@1200 08/22/19 11/05/21 11/04/20 19:00 History release cilostazol 100 mg tablet 100 mg PO DAILY@1200 tab 05/09/20 11/05/21 11/04/20 08:00 History pravastatin 80 mg tablet 40 mg PO DAILY@1200 tab 05/09/20 11/05/21 11/04/20 19:00 History docusate sodium 100 mg capsule 100 mg PO BID@1200,0000 07/19/20 11/05/21 07/18/20 History (Colace) hydrochlorothiazide 25 mg tablet 12.5 mg PO DAILY #0 tab 07/25/20 11/05/21 11/04/20 08:00 Rx apixaban 5 mg tablet (Eliquis) 5 mg PO BID 09/05/20 11/11/21 11/09/21 10:00 History diltiazem HCl 120 mg 120 mg PO DAILY 09/05/20 11/05/21 11/04/20 08:00 History capsule,extended release 24 hr potassium chloride 20 mEq 10 meq PO DAILY@1200 tab 09/05/20 11/05/21 11/04/20 09:00 History tablet,extended release melatonin 3 mg capsule 3 mg PO DAILY 09/11/20 11/05/21 11/04/20 23:00 History quetiapine 50 mg tablet (Seroquel) 50 mg PO DAILY 09/11/20 11/05/21 11/04/20 23:00 History vitamin E 200 unit capsule 200 unit PO DAILY 09/11/20 11/05/21 11/04/20 09:00 History Allergies Allergy/AdvReac Type Severity Reaction Status Date / Time No Known Allergies Allergy Verified 11/05/21 08:59 PFSH Acute PFSH: Medical History AAA (abdominal aortic aneurysm) Adjustment disorder with depressed mood Anxiety BPH (benign prostatic hyperplasia) Diverticulosis Hypercholesterolemia Hypertension New onset a-fib 07/19/20 OCD (obsessive compulsive disorder) (~2013) PTSD (post-traumatic stress disorder) Surgical History History of colonoscopy (~2013) diverticulosis S/P bilateral inguinal hernia repair Status post surgical removal of malignant neoplasm of skin Family History Family/Other Cancer brother- colon cancer Hypertension brother Mother Cancer colon cancer Father Diabetes Denies family history of Anesthesia complication Bleeding disorder Social History Smoking and tobacco status: former smoker Second hand smoke exposure: No Alcohol intake: never Desire information about alcohol rehabilitation?: No Adopted: No Caregiver/support person: Yes Lives independently: Yes Household members: spouse Housing: House Marital status: service: Yes branch: [employer] Current occupational status: retired Current occupational exposures/hazards: No Pets and animals: No History of recent travel: No Sexually active: No Current gender identity: Male Meron/Scientology: Rastafarian Special meron needs: No Agree to transfusion: No Financial difficulty paying for basics: Decline to Answer Physical Exam HENMT: COMMON NORMALS: normocephalic, atraumatic, hearing grossly normal bilaterally and external ears normal Eye: COMMON NORMALS: Equal, round and reactive pupils present, EOMs intact bilaterally, conjunctivae normal and no scleral icterus Neck/C-Spine: COMMON NORMALS: full ROM, no lymphadenopathy, supple and No carotid bruits Chest: COMMONS NORMALS: normal palpation of entire chest wall Resp: COMMON NORMALS: normal respiratory effort, No retractions and clear to auscultation bilaterally Cardio: COMMON NORMALS: regular rate, regular rhythm, S1 normal heart sound present and No murmurs present (Cardio) PERIPHERAL PULSES: radial pulses present positive bilateral 2+, femoral pulses present positive bilateral 2+ and dorsalis pedis present positive bilateral 1+ GI: COMMON NORMALS: Normal to inspection, nondistended, normoactive bowel sounds present and Soft to palpation PALPATION: Yes Pulsatile mass present (Nontender) Extremity: COMMON NORMALS: no clubbing, cyanosis or edema Neuro: COMMON NORMALS: patient oriented x3, moves all extremities, no focal motor deficits and no sensory deficits noted Psych: COMMON NORMALS: mental status grossly normal, Normal thought process present, cooperative and normal affect Data : 11/05/21 09:20 11/05/21 09:20 A&P Assessment and plan (1) AAA (abdominal aortic aneurysm): Given the ulceration and subsequent pseudoaneurysmal formation and slight increase over serial exams, we have recommended elective attempt at endovascular abdominal aortic aneurysm repair. Rationale for this was carefully discussed with Mr. Marr and family. Details and risks of the procedure were carefully and frankly discussed. Risks reviewed include the possibility of , stroke, heart attack, major bleeding, infection, pneumonia, organ failure, kidney failure due to disruption of blood flow, failure to benefit, prolonged hospital stay, pain after the procedure, need for further procedures, need for urgent open repair, inability to complete the procedure, acute ischemia to lower extremities requiring need for urgent bypass or other procedures or even possible major amputation, and need for long-term followup. All questions were answered. Appropriate consents have been provided for review and signature. Status: Acute Qualifiers: Presence of rupture: without rupture Qualified Code(s): I71.4 - Abdominal aortic aneurysm, without rupture Attestations Medical Necessity Statement*: Abdominal aortic aneurysm with ulceration and pseudoaneurysmal formation Coding Level of Care Code Acute Malariologist for [facility] Diagnoses AAA (abdominal aortic aneurysm) I71.4 Presence of rupture: without rupture
--- NOTE | 2021-11-11 07:46 | P.ANESUD_ITS ---
Pre-Anesthetic Update Pre-Anesthetic Assessment: Date of Surgery/Procedure: 11/11/21 Preop Makayla gnosis: Endovascular AAA repair Proposed Procedure: Operation Date: 11/11/21 07:00 Proposed Procedures p AAA Stent Cutdown(Not Applicable) - Giovani Manzano MD Operation Date: 11/11/21 07:00 Proposed Procedures p Endovascular Aortic Repair(Not Applicable) - Giovani Manzano MD Any changes to Pre-Anesthetic Assessment?: No Last Intake: Intake Last Liquid Date 11/11/21 Last Liquid Time 03:00 Last Solid Date 11/10/21 Last Solid Time 22:00 Labs Last 48hrs: Blood Bank 11/05/21 09:20 Blood Type O Positive Rho(D) Type Positive Antibody Screen Negative Vitals: Pulse Rhythm 11/11/21 06:45 Pulse Strength 2+ Slightly Dimin ished 11/11/21 06:45 Oxygen Delivery Me thod 11/11/21 06:45 Exam: Pre-Anes Outpt Exam: alert, oriented x 3, clear to auscultation bilaterally and regular rate & rhythm Cardiac Studies: Echocardiogram Ultrasound 07/20/20 Sestamibi Stress Test (Cardiology) 10/01/20
--- NOTE | 2021-11-11 09:03 | PC.CHAP ---
Pastoral Care Encounter/Spiritual Assessment Type of Contact [] Declined surveying technician visit [] Patient/Family/Request visit [] Outpatient visit [] Follow-up visit [] Physician referral [] Code/Alert [x] Routine visit [] Staff referral [] Actively dying [] Patient sleeping [] Family support [] [x] Out of room [] Palliative care [] [] Receiving care in room [] Pre-surgical visit [] Trauma [] Long length of stay [x] ICU visit [] Other: Relational/Emotional Strength [] Patient feels connected with others/family/visitors/staff [] Distress [] Loneliness/isolation [] Abandonment Spirituality of Patient [] Person of Meron [] Attends Advent of their [place] [] Believes in Prayer [] Reads Bible or Judaism materials [] There are Spiritual issues to be addressed Tractor Operator Battery Interventions [x] Prayer [] Active listening [] Non-anxious presence [] Spiritual/emotional support [] Crisis/trauma care [] Spiritual counseling [] Bereavement support [] Provided bereavement packet [] Provided Bible/devotional materials [] Provided toy/stuffed animal, coloring book to patient or family member [] Provided Communion [] Anointing/[place] [] Salvation [x] Completed spiritual assessment [] Other: Impact on Illness or Injury [] Angry [] Fearful [] Anxious [] Often cries [] Exhaustion [] Unable to work [] Unable to attend restorationist [] Unable to walk/stand [] Unable to read [] Unable to drive [] Unable to eat/drink [] Unable to sleep [] Unable to be with family [] Patient intubated [] Other: Summary Time spent with patient
--- NOTE | 2021-11-11 10:19 | ANE.PACU2 ---
Inpatient post-anesthesia follow up: Airway intact: Yes Vital signs: Temperature Pulse Rate Respiratory Rate Blood Pressure Pulse Oximetry Oxygen Delivery Me thod Room Air Oxygen Flow Rate Fraction of Inspir ed Oxygen Hydration adequate: Yes Nausea and vomiting: No Pain level: 1 Mental status: Baseline
[2021-11-11 10:54] VITALS: PULSE 59; O2SAT 97
--- NOTE | 2021-11-11 11:00 | PC.NURSE ---
Pt was admitted to the ICU at 1010 from [facility] via bed on non rebreather. ART line and cobb catheter in place. Right and left groin sites are dry with dressings in place. Family in room shortly after with all belongings.
[2021-11-11] MEDS: aspirin 81 mg EC Tablet PO (11:51)
[2021-11-11] MEDS: lactated ringers 1,000 ML 100 ML IV (11:51)
[2021-11-11] MEDS: tamsulosin 0.4 mg Capsule PO (11:51)
[2021-11-11] MEDS: docusate sodium 100 mg Capsule PO (11:54)
--- NOTE | 2021-11-11 12:21 | PM.OP ---
Operative Report Date of procedure: November 11, 2021 Pre-op diagnosis: Preop Diagnosis Endovascular AAA repair Post-op diagnosis: same Procedure done: Endovascular abdominal aortic aneurysm repair utilizing an Endologix 25 x 90 mm bifurcated main body graft with 28 x 95 mm supra extension Pathology: none sent Surgeon: Giovani Manzano Surgeon: Dr. Enoch Mercado Anesthesia: General Complications: None Condition: stable Disposition: ICU Brief History: Mr. Marr is a 71-year-old gentleman with a known infrarenal abdominal aortic aneurysm measuring up to 4.5 cm in maximal transverse dimension though also containing an enlarging penetrating enhancing ulcer with thrombus and enlarging pseudoaneurysm formation just beneath the left renal artery. Because of continued enlargement of this ulcer on serial exams between January of last year and August of this year, elective repair has been recommended. He underwent careful outpatient preoperative evaluation including cardiac clearance and was electively admitted for planned attempted endovascular repair. Details of risk the procedure were carefully and frankly discussed. Appropriate consents have been reviewed and signed. Procedure: Mr. Marr was taken to the catheterization lab, carefully positioned, and then underwent general endotracheal anesthesia. Appropriate invasive lines were placed including right radial arterial line and adequate vascular access. His lower chest and entire abdomen, groin region, and thighs were sterilely prepped and draped. A cutdown was performed in the right groin exposing the right common femoral artery. Next, a 7 Mozambican sheath was placed in the left common femoral artery, and ProGlide Perclose securing sutures x 2 were engaged in the arterial wall and secured. The patient then received 10,000 units of heparin and ACT was confirmed to be therapeutic. A 9 [place]amb[place] sheath was then placed in the right femoral artery. A J-wire was utilized to be exchanged on the ipsilateral side to a Lunderquist stiff wire. Next, a loaded 25 x 90 mm AFX2 bifurcated device and delivery sheath were placed over the stiff wire and advanced along with the contralateral wire up through the 19 [place] AFX introducer sheath utilizing wireguide. The contralateral wire was then snared and pulled out through the left common femoral artery. The AFX2 bifurcated device was transferred into the AFX introducer sheath and advanced under fluoroscopic guidance until distal limbs were above the aortic bifurcation thereby releasing the limbs of the graft. The entire system was pulled down to the aortic bifurcation. The main body of the bifurcated graft was then deployed by pulling on the controlled cord handle. Next, we deployed the contralateral limb by pulling the yellow limb cover, advancing a pigtail catheter over the contralateral wire into the tip was in contact with the wire lock, with wire lock being released by pulling it with a stationary pigtail catheter in position. The ipsilateral limb was then deployed by pinning the inner core and retracting the AFX introducer sheath. Next, we advanced and deployed a 28 x 95 mm supra extension endograft after angiography was performed to visualize the renal arteries. Iliac extensions were not required. Next, we removed the extension delivery device from the AFX introducer sheath. A CODA balloon was then utilized to clear the proximal extension distally just above the bifurcation to allow for complete wall contact. The entire endograft system was then ballooned in a similar fashion beginning at the level renal arteries extending distally. A 10 mm angioplasty balloon was then utilized on the left iliac limb of the bifurcated graft. Final angiography was performed in subtraction mode revealing good seal without extravasation or evidence of endoleak. Next, catheters, sheaths, and guidewires were removed under fluoroscopic guidance. Perclose device was then utilized to close the left common femoral artery insertion site. This was noted to be hemostatic. The right common femoral artery was repaired directly utilizing 2 previously placed 6-0 Prolene pursestring sutures. There was good backbleeding and forward bleeding was prior to completion of the repair. Flow was then reestablished. 50 mg of protamine was given for heparin reversal. Right groin was noted to be hemostatic. It was irrigated with antibiotic solution. Sponge and needle count was correct. Wound was closed in 2 layers of 2-0 Vicryl suture. Skin was reapproximated in a subcuticular manner with 4-0 Monocryl suture. Sterile dressings were applied. He had palpable dorsalis pedis pulses bilaterally at completion of the procedure. He was awakened and extubated on the catheterization table. Mr. Marr was then transferred to the ICU in stable condition. I did career development counselor with the family at the completion of the procedure.
[2021-11-11 15:14] VITALS: PULSE 63
--- NOTE | 2021-11-11 16:25 | ANE.PACU2 ---
Inpatient post-anesthesia follow up: Airway intact: Yes Vital signs: Temperature Pulse Rate 63 Respiratory Rate Blood Pressure Pulse Oximetry 97 Oxygen Delivery Me thod [ Nasal Cannula Current Rate & Del bola] Oxygen Delivery Me thod Oxymask Oxygen Flow Rate [ Current Rate 3 & Delivery] Fraction of Inspir ed Oxygen Hydration adequate: Yes Nausea and vomiting: No Pain level: 2 Mental status: Baseline
--- NOTE | 2021-11-11 18:29 | PC.NURSE ---
ART line removed and a dressing was applied to a non bleeding site. Hunter was removed at 1710 and then voided at 1800. Patient has since been able to ambulate around room with no assistance. All dressing are still dry and intact at this time.
[2021-11-11 22:00] VITALS: PULSE 72
[2021-11-11 22:54] VITALS: PULSE 66; O2SAT 98
[2021-11-11] MEDS: ondansetron 2 mg/ML SDV 2 mL 4 MG IVP (23:19)
[2021-11-11] MEDS: guaiFENesin-codeine UDC 10 mL PO (23:19)
[2021-11-12] MEDS: docusate sodium 100 mg Capsule PO (01:11)
[2021-11-12] MEDS: diphenhydrAMINE 25 mg Capsule PO (01:15)
[2021-11-12] MEDS: guaiFENesin-codeine UDC 10 mL PO (03:56)
--- NOTE | 2021-11-12 05:40 | P.DS_ITS ---
Discharge Providers Date of Admission: 11/11/21 07:33 Date of Discharge: November 12, 2021 Attending Provider at Admission: Giovani Manzano MD Attending Provider at Discharge: Giovani Manzano MD Primary Care Provider: Olaf Swain DO Diagnoses at Discharge Discharge Diagnosis (1) AAA (abdominal aortic aneurysm): Details from hospital stay: Mr. Marr is a 71-year-old gentleman whom we have been following for 2 years with a known abdominal aortic aneurysm. 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 This area has enlarged over the past 2 years on serial exams and sits just beneath the left renal artery. Because of this continued enlargement, we recommended consideration for elective repair. He underwent careful outpatient preoperative evaluation and was electively admitted on November 11. He underwent endovascular repair utilizing Endologix 25 x 90 mm bifurcated main body graft with a 28 x 95 mm supra extension. Postoperatively, he convalesced in the ICU he remained stable. Good distal perfusion without evidence for embolic phenomenon. Postoperative discomfort under good control. Vital signs remained stable. He is tolerating a diet well. He is voiding without difficulty. Surgical incision in the right groin remains clean and dry. Left groin puncture site remains clean and dry. No evidence for fluid collection or hematoma formation. He will be discharged home today in stable condition with limited activity for the next 2 weeks. He will follow-up in my clinic in 1 week. Status: Acute Qualifiers: Presence of rupture: without rupture Qualified Code(s): I71.4 - Abdominal aortic aneurysm, without rupture Reason for Visit Reason for Visit: aaa Physical Exam Resp: COMMON NORMALS: normal respiratory effort, No use of accessory muscles and clear to auscultation bilaterally AUSCULTATION: clear to auscultation bilaterally Cardio: COMMON NORMALS: regular rate and regular rhythm RATE: regular rate RHYTHM: regular rhythm PERIPHERAL PULSES: femoral pulses present positive bilateral 2+ and dorsalis pedis present positive bilateral 1+ GI: COMMON NORMALS: Normal to inspection, nondistended, normoactive bowel sounds present Extremity: COMMON NORMALS: no clubbing, cyanosis or edema OTHER: Right groin incision is clean and dry without evidence for fluid collection or drainage. Left groin puncture site is clean and dry without evidence for fluid collection. No hematoma appreciated on either side. 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1 fL (7.4-10.4) 11/05/21 09:20 Neut % (Auto) 65.1 % 11/05/21 09:20 Lymph % (Auto) 24.2 % 11/05/21 09:20 [place] % (Auto) 7.2 % 11/05/21 09:20 Eos % (Auto) 2.7 % 11/05/21 09:20 Baso % (Auto) 0.6 % 11/05/21 09:20 Neut # (Auto) 7.85 10^3/uL (1.8-7.7) H 11/05/21 09:20 Lymph # (Auto) 2.9 10^3/uL (0.8-4.8) 11/05/21 09:20 [place] # (Auto) 0.9 10^3/uL (0.2-0.9) 11/05/21 09:20 Eos # (Auto) 0.3 10^3/uL (0.0-0.8) 11/05/21 09:20 Baso # (Auto) 0.1 10^3/uL (0.0-0.1) 11/05/21 09:20 Nucleated RBC % (auto) 0 % 11/05/21 09:20 Nucleated RBCs # 0.0 /100WBC 11/05/21 09:20 Sodium 138 mmol/L (136-145) 11/05/21 09:20 Potassium 3.5 mmol/L (3.5-5.1) 11/05/21 09:20 Chloride 98 mmol/L (98-107) 11/05/21 09:20 Carbon Dioxide 33 mmol/L (22-29) H 11/05/21 09:20 Anion Gap 10.5 (5-19) 11/05/21 09:20 BUN 14 mg/dL (8-23) 11/05/21 09:20 Creatinine 0.9 mg/dL (0.7-1.2) 11/05/21 09:20 GFR Calculation Not Reportable 11/05/21 09:20 Glucose 128 mg/dL (65-115) H 11/05/21 09:20 Calculated Osmolality 288 mOsm/kg (285-295) 11/05/21 09:20 Calcium 9.9 mg/dL (8.5-10.5) 11/05/21 09:20 Urine Color Yellow (Yellow) 11/05/21 09:30 Urine Appearance Clear (CLEAR) 11/05/21 09:30 Urine pH 7 (5-7) 11/05/21 09:30 Ur Specific [place] 1.000 (1.005-1.030) L 11/05/21 09:30 Urine Protein Neg (Negative) 11/05/21 09:30 Urine Glucose (UA) Norm (Normal) 11/05/21 09:30 Urine Ketones Negative (Negative) 11/05/21 09:30 Urine Blood 2+ (Negative) H 11/05/21 09:30 Urine Nitrate Negative (Negative) 11/05/21 09:30 Urine Bilirubin Neg (Negative) 11/05/21 09:30 Urine Urobilinogen Norm mg/dL (Negative) 11/05/21 09:30 Ur Leukocyte Esterase Negative (Negative) 11/05/21 09:30 Urine RBC 0-4 /hpf (0-2) H 11/05/21 09:30 Urine WBC None /hpf (0-5) 11/05/21 09:30 Ur Squamous Epith Cells None /hpf (0-5) 11/05/21 09:30 Ur Transition Epith Cell None /hpf 11/05/21 09:30 Amorphous Sediment Not Reportable 11/05/21 09:30 Urine Bacteria None /hpf (NONE) 11/05/21 09:30 Blood Type O Positive 11/05/21 09:20 Rho(D) Type Positive 11/05/21 09:20 Antibody Screen Negative 11/05/21 09:20 Crossmatch See Detail 11/05/21 09:20 Procedures Performed Endovascular abdominal aortic aneurysm repair on November 11, 2021 Vitals Last Vital Signs Pulse 66 11/11/21 22:54 Pulse Ox 98 11/11/21 22:54 Discharge Plan Discharge Patient Disposition: Home Condition: Stable Prescriptions: New hydrocodone-acetaminophen 5-325 mg Tablet 1 tab PO Q6H PRN (Reason: Moderate Pain) Qty: 15 0RF cephalexin 500 mg capsule 500 mg PO BID Qty: 4 0RF Continued aspirin 81 mg tablet,delayed release (DR/EC) 81 mg PO DAILY@1200 0RF pravastatin 80 mg tablet 40 mg PO DAILY@1200 0RF potassium chloride 20 mEq tablet extended release 10 meq PO DAILY@1200 0RF cilostazol 100 mg tablet 100 mg PO DAILY@1200 0RF diltiazem HCl 120 mg capsule,extended release 24hr 120 mg PO DAILY 0RF Eliquis 5 mg tablet 5 mg PO BID 0RF cholecalciferol (vitamin D3) 50 mcg (2,000 unit) capsule 2,000 unit PO DAILY@1200 0RF omega-3 fatty acids 500 mg capsule 500 mg PO DAILY@1200 0RF tamsulosin 0.4 mg capsule 0.4 mg PO DAILY@1200 0RF vitamin E 200 unit capsule 200 unit PO DAILY 0RF melatonin 3 mg capsule 3 mg PO DAILY 0RF quetiapine [Seroquel] 50 mg tablet 50 mg PO DAILY 0RF docusate sodium [Colace] 100 mg capsule 100 mg PO BID@1200,0000 0RF hydrochlorothiazide 25 mg tablet 12.5 mg PO DAILY Qty: 0 0RF Discharge Orders: Discharge Order (Routine); Ordered 11/12/21 Ordered By: Giovani Manzano Referrals: Giovani Manzano MD [Physician] - 1 week Discharge Diet: Usual diet Discharge Activity: Limit activity as instructed Patient Instructions: Opioid Safety, Post Anesthesia Care Activity Restrictions/Additional Instructions: May remove bandage in 2 days May begin daily showers in 2 days No swimming or tub baths x 2 weeks No ointments on incision No heavy lifting or pulling x2 weeks Report drainage, redness, heat, increased pain, or swelling to clinic Discharge Attestations Time Spent in Discharge Care*: less than 30 min Specific Discharge Activities: educating patient, discussing with shoe caser/social workers/dc planners, documenting/other paperwork and evaluating patient/reviewing data Status at Discharge: Cognitive status at discharge: cognitively intact , Behavioral status at discharge: cooperative , Functional status at discharge: independent ambulation , Overall status at discharge: patient is progressing back to baseline Quality Metrics Clinical Quality Measures [ No reported AMI, CVA or VTE this stay] Coding Level of Care Code Acute [facility] note Diagnoses AAA (abdominal aortic aneurysm) I71.4 Presence of rupture: without rupture
[2021-11-12 06:14] VITALS: PULSE 68
[2021-11-12] MEDS: pantoprazole DR 40 mg Tablet PO (08:02)
[2021-11-12] MEDS: hydroCHLOROthiazide 25 mg Tablet 12.5 MG PO (08:02)
[2021-11-12] MEDS: dilTIAZem ER (24HR) 120 mg Capsule PO (08:02)
[2021-11-12 08:15] VITALS: PULSE 64; O2SAT 97
[2021-11-12 08:26] VITALS: BP 141/66; PULSE 64; RESP 18; O2SAT 97
--- NOTE | 2021-11-12 08:31 | PC.NURSE ---
Removed all IV's. Discharge appointments and prescriptions sent to pharmacy of patients choice. All limitations explained to patient. Verbalized understanding.
--- NOTE | 2021-11-12 09:14 | PC.NURSE ---
Patient discharged at 09
== END 2021-11-12 09:01 | disposition home or self-care (01) | DRG 269 ==
LOC: ICU 07:34
PROVIDERS: Admitting Provider Thoracic Surgery (Cardiothoracic Vascular Surgery); PCP Emergency Medicine Emergency Medical Services; Visit Provider Thoracic Surgery (Cardiothoracic Vascular Surgery)
PROC: 04V03ZZ Restriction of Abdominal Aorta, Percutaneous Approach (ICD-10-PCS; principal; 2021-11-11 07:00)
DX: I71.4 Abdominal aortic aneurysm, without rupture (principal); I25.10 Atherosclerotic heart disease of native coronary artery without angina pectoris; I48.91 Unspecified atrial fibrillation; F29 Unspecified psychosis not due to a substance or known physiological condition; F43.21 Adjustment disorder with depressed mood; F41.9 Anxiety disorder, unspecified; N40.0 Benign prostatic hyperplasia without lower urinary tract symptoms; I10 Essential (primary) hypertension; E78.00 Pure hypercholesterolemia, unspecified; F43.10 Post-traumatic stress disorder, unspecified; F42.9 Obsessive-compulsive disorder, unspecified; Z79.01 Long term (current) use of anticoagulants; Z79.82 Long term (current) use of aspirin; Z87.891 Personal history of nicotine dependence; Z85.828 Personal history of other malignant neoplasm of skin
CPT/HCPCS: 36415; 80048; 81001; 85025; 86850; 86900; 86920; 96360; 96361; A4570; C1725; C1760; C1769; C1773; C1887; C1894; J0330; J0690; J1100; J1644; J2370; J2405; J2704; J2720; J3010; J3490; J7030; Q9967

== ENCOUNTER → 2021-11-20 10:00 | Outpatient (BNVA) | payer OTHER, SELFPAY | PROVIDERS: PCP Emergency Medicine Emergency Medical Services; Visit Provider Thoracic Surgery (Cardiothoracic Vascular Surgery) | DX: Z98.890 Other specified postprocedural states (principal) | CPT/HCPCS: 99024 ==

== ENCOUNTER 2022-01-02 11:43 | Outpatient (CLI) | payer OTHER, SELFPAY ==
--- NOTE | 2022-01-02 12:00 | CT_ITS ---
WS: [id number] CT ANGIOGRAPHY abdomen and pelvis. HISTORY: AAA TECHNIQUE: CT angiogram is performed during IV injection. Reformation images reviewed. All CT scans a t [employer] use at least one of these dose optimization techniques: automated exposure contro l; mA and/or kV adjustment per patient size (includes targeted exams where dose is matched to clinica l indication); or iterative reconstruction. CONTRAST: Omnipaque 350; 95 mL IV. DLP: 2503.87 mGy.cm COMPARISON: 09/04/2021 Chronic emphysematous changes at the lung bases. Heart is normal size. Small hiatal hernia. Marked tr icuspid regurgitation into hepatic veins. Abdominal aorta: Since the prior examination patient has undergone endovascular aneurysmal repair of the abdominal aortic aneurysm. Graft begins just below the level of the SMA with biiliac graft extens ions. Short segment extension into the iliac arteries. Good opacification and enhancement of the michel ac axis and SMA. Normal enhancement of the renal arteries. There is very mild narrowing of the proxim al RIGHT renal artery with a small amount of plaque or even a focal dissection. This was present on t he prior exam also with no change. [place] aneurysm sac measures 4.5 x 4.5 cm. There is an endovascula r leak extending into the thrombus of the [place] aneurysm at the level of the AMANDA. Flow within the an eurysm sac and does appear to be related to the AMANDA consistent with a type II leak. Leak extends obli quely through the thrombus over a length of 2.0 cm. No additional lesion is identified. Liver and spleen and pancreas are negative on this early arterial enhancement exam. Gallbladder well distended with cholelithiasis. No adrenal mass. Bilateral renal cysts. The largest in the RIGHT kidne y measures 3.1 cm. Kidneys are normally enhancing. No areas of ischemia or volume loss. No GI tract obstruction. Moderate diffuse constipation. Numerous diverticula throughout the colon. No evidence for acute diverticulitis. The appendix is normal. Gallbladder wall thickening. Prostate gla nd enlargement and heterogeneity encroaches into the bladder. Mild bilateral hip joint osteoarthritis. CT/CT angio abdomen pelvis [id number] IMPRESSION: 1. Status post endovascular aneurysm repair with stent graft. Endovascular rep air is new since 09/04/2021. 2. Type II endovascular leak. Retrograde flow appears to be from the inferior mesenteric artery. 3. Normal enhancement of the kidneys with no ischemia. 4. Bilateral renal cysts. 5. Marked tricuspid regurgitation into hepatic veins. 6. Chronic emphysema. 7. No significant enlargement of the [place] abdominal aortic aneurysm. 8. Cholelithiasis without acute cholecystitis.
[2022-01-02] MEDS: iohexol 300 mg/mL 100 mL Btl IV (12:32)
[2022-01-02 12:59] LABS: Blood Urea Nitrogen 12 mg/dL (8-23)
== END 2022-01-02 11:44 | disposition home or self-care (01) ==
LOC: RAD 11:44
PROVIDERS: PCP Emergency Medicine Emergency Medical Services; Visit Provider Thoracic Surgery (Cardiothoracic Vascular Surgery)
DX: I71.4 Abdominal aortic aneurysm, without rupture (principal)
CPT/HCPCS: 74174; 82565; 84520

== ENCOUNTER → 2022-01-15 10:29 | Outpatient (BNVA) | payer OTHER, SELFPAY | PROVIDERS: PCP Emergency Medicine Emergency Medical Services; Visit Provider Thoracic Surgery (Cardiothoracic Vascular Surgery) | DX: Z98.890 Other specified postprocedural states (principal) | CPT/HCPCS: 99024 ==

== ENCOUNTER 2022-07-13 09:32 | Outpatient (CLI) | payer OTHER, SELFPAY ==
--- NOTE | 2022-07-13 10:00 | CT_ITS ---
WS: [id number] CT ANGIOGRAPHY abdomen and pelvis. HISTORY: AAA, history of endograft. TECHNIQUE: Pre-, post and delayed imaging through the abdominal aorta. CT angiogram is performed duri ng IV injection. Reformation images reviewed. All CT scans at [facility] use at least one of t hese dose optimization techniques: automated exposure control; mA and/or kV adjustment per patient si ze (includes targeted exams where dose is matched to clinical indication); or iterative reconstructio n. CONTRAST: Omnipaque 350; 95 mL IV. DLP: 1339.57 mGy.cm COMPARISON: 01/02/2022 Hyperexpanded lung bases with emphysema. Heart size is normal. Small hiatal hernia. Large amount of t ricuspid regurgitation with contrast extending into the IVC and hepatic veins. Abdominal aorta: Endovascular graft repair of the abdominal aorta begins at the level of the superior mesenteric artery and extends inferiorly with bilateral iliac extensions. Again noted is a blush-lik e area of enhancement within the [place] thrombus of the aneurysm consistent with an endoleak that was previously described. No increase in size of the enhancement within the thrombus which measures 11 x 16 mm along the mid graft. No increase in size of the [place] abdominal aortic aneurysm with a maximu m diameter of 4.6 cm. No occlusion of the iliac artery stents. Cholelithiasis without acute cholecystitis. Bilateral renal cysts are unchanged. No renal obstruction or solid mass. Normal enhancement of each kidney with no ischemic changes. No mass within the liver, spleen or pancreas. No adrenal mass. Normal pancreas. GI tract obstruction. Moderate diffuse constipation. Normal appendix. Mild bladder wall thickening is diffuse with prostate gland enlargement and calcifications. Similar to the prior study. Post procedu re thickening and fibrosis at the RIGHT inguinal region. CT/CT angio abdomen pelvis [id number] IMPRESSION: 1. Status post endovascular graft repair of the abdominal aortic aneurysm with bilateral iliac artery extensions. No interval change since 01/02/2022. 2. Stable endovascular leak along the mid abdominal aorta graft. 3. [place] aneurysm size is stable. 4. Cholelithiasis without acute cholecystitis. 5. No ischemic changes within the GI tract or kidneys. 6. Bilateral renal cysts. 7. Prostate gland enlargement with urinary bladder wall thickening from outlet obstruction.
[2022-07-13] MEDS: iohexol 350 mg/mL 500 mL Btl (per mL) IV (10:09)
[2022-07-13 10:25] LABS: Blood Urea Nitrogen 12 mg/dL (8-23)
== END 2022-07-13 09:33 | disposition home or self-care (01) ==
LOC: RAD 09:32
PROVIDERS: PCP Emergency Medicine Emergency Medical Services; Visit Provider Thoracic Surgery (Cardiothoracic Vascular Surgery)
DX: I71.40 Abdominal aortic aneurysm, without rupture, unspecified (principal); N28.1 Cyst of kidney, acquired; N40.0 Benign prostatic hyperplasia without lower urinary tract symptoms; K80.20 Calculus of gallbladder without cholecystitis without obstruction
CPT/HCPCS: 74174; 82565; 84520; Q9967

== ENCOUNTER → 2022-08-13 09:24 | Outpatient (BNVA) | payer OTHER, SELFPAY | PROVIDERS: PCP Emergency Medicine Emergency Medical Services; Visit Provider Thoracic Surgery (Cardiothoracic Vascular Surgery) | DX: Z98.890 Other specified postprocedural states (principal); Z86.79 Personal history of other diseases of the circulatory system; Z87.891 Personal history of nicotine dependence; I71.40 Abdominal aortic aneurysm, without rupture, unspecified | CPT/HCPCS: 99213 ==

== ENCOUNTER → 2022-10-19 15:04 | Outpatient (BNVA) | payer OTHER, SELFPAY | PROVIDERS: PCP Emergency Medicine Emergency Medical Services; Visit Provider Internal Medicine | DX: I10 Essential (primary) hypertension (principal); I48.91 Unspecified atrial fibrillation; I71.40 Abdominal aortic aneurysm, without rupture, unspecified; Z79.01 Long term (current) use of anticoagulants; Z87.891 Personal history of nicotine dependence | CPT/HCPCS: 99214 ==

== ENCOUNTER 2023-02-08 12:05 | Outpatient (CLI) | payer OTHER, SELFPAY ==
--- NOTE | 2023-02-08 12:00 | USCV_ITS ---
Justa Lalo Age: 72 Gender: M : 1950 Exam Date: 02/08/2023 13:01 Ordering Phys: Giovani Manzano MD (Andy) ([email or web address] Technologist: DANNIELLE [place] [facility] [place] Indication: AAA. HISTORY: Diameter (cm) AP x Transverse x Length Velocity (cm/s) Waveform Prox Aorta: 2.17 x 2.66 x 87.60 Mid Aorta: 1.59 x 1.86 x 81.00 Distal Aorta: 4.57 x 4.83 x 8.07 31.70 Right Iliac Prox: 1.64 x 1.67 x 130.30 Left Iliac Prox: 1.28 x 1.26 x 122.00 Stent Prox Landing x x Aneurysmal Sac Max x x Lt Lat Sac Dim Rt Lat Sac Dim Stent Dist [place] x x Right Iliac Stent x x Left Iliac Stent x x Right Renal Art Left Renal Art FINDINGS: comparison 2019 CONCLUSIONS Distal fusiform AAA measuring 4.5 x 4.8 cm with peripheral mural thrombus. This appears stable since 2019 Normal iliac arteries Travon Sheppard MD (Electronically Signed) Final Date: 08 February 2023 14:41 S
== END 2023-02-08 12:06 | disposition home or self-care (01) ==
LOC: RAD 12:17
PROVIDERS: PCP Emergency Medicine Emergency Medical Services; Visit Provider Thoracic Surgery (Cardiothoracic Vascular Surgery)
DX: I71.40 Abdominal aortic aneurysm, without rupture, unspecified (principal); I74.09 Other arterial embolism and thrombosis of abdominal aorta; Z86.79 Personal history of other diseases of the circulatory system
CPT/HCPCS: 93978

== ENCOUNTER → 2023-02-25 09:24 | Outpatient (BNVA) | payer OTHER, SELFPAY | PROVIDERS: PCP Emergency Medicine Emergency Medical Services; Visit Provider Thoracic Surgery (Cardiothoracic Vascular Surgery) | DX: I48.0 Paroxysmal atrial fibrillation (principal); Z98.890 Other specified postprocedural states; Z86.79 Personal history of other diseases of the circulatory system; Z87.891 Personal history of nicotine dependence; R94.31 Abnormal electrocardiogram [ECG] [EKG] | CPT/HCPCS: 93005; 99213 ==

== ENCOUNTER → 2023-04-22 13:23 | Outpatient (BNVA) | payer OTHER, SELFPAY | PROVIDERS: PCP Emergency Medicine Emergency Medical Services; Visit Provider Nurse Practitioner Family | DX: L57.0 Actinic keratosis (principal); L82.1 Other seborrheic keratosis; Z86.006 Personal history of melanoma in-situ; D22.5 Melanocytic nevi of trunk; L57.8 Other skin changes due to chronic exposure to nonionizing radiation; L81.4 Other melanin hyperpigmentation | CPT/HCPCS: 17000; 99213 ==

== ENCOUNTER 2023-07-15 17:42 | Emergency (ER) | payer OTHER, SELFPAY ==
[2023-07-15 17:45] VITALS: BP 169/74; PULSE 82; RESP 18; TEMP 36.4; O2SAT 91; BMI 23.6
--- NOTE | 2023-07-15 17:54 | XRR_ITS ---
PROCEDURE INFORMATION: Exam: XR Chest Exam date and time: 07/15/2023 6:14 PM Age: 72 years old Clinical indication: Shortness of breath; Prior surgery; Surgery date: 6+ months; Surgery type: Heart; Patient HX: SOB; Low o2 TECHNIQUE: Imaging protocol: Radiologic exam of the chest. Views: 1 view. COMPARISON: CT angio chest PE protcl [id number] 07/19/2020 11:35 PM FINDINGS: Lungs: No focal consolidation. Pleural spaces: No evidence of pneumothorax or pleural effusion. Heart/Mediastinum: Cardiomediastinal silhouette is within normal limits. Bones/joints: No evidence of acute osseous abnormality. XR/XR chest 1V portable [id number] IMPRESSION: 1. No acute cardiopulmonary abnormality.
--- NOTE | 2023-07-15 18:08 | ECG_ITS ---
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 Measurements Intervals [place] Rate: 79 P: -90 DC: 126 QRS: 45 QRSD: 81 T: 68 QT: 386 QTc: 444 Interpretive Statements ECTOPIC ATRIAL RHYTHM WITH PACs MODERATE ST DEPRESSION [0.05+ mV ST DEPRESSION] Compared to ECG 02/25/2023 09:31:57 ST (T wave) deviation still present Electronically Signed On 07-16-2023 12:20:49 MANAGER EQUIPMENT by Sheldon Mercado M.D. [email or web address]
[2023-07-15 19:23] LABS: Basophils % 0.5 %; Eosinophils # 0.1 10^3/uL (0.0-0.8); Eosinophils % 1.2 %; Hematocrit 52.3 % (37-53); Lymphocytes % 24.4 %; Mean Corpuscular HGB Conc 32.7 g/dL (30-55); Mean Corpuscular Hemoglobin 28.4 pg (27-33); Mean Corpuscular Volume 86.7 fl (82-101); Mean Platelet Volume 8.7 fL (7.4-10.4); Monocytes # 0.6 10^3/uL (0.2-0.9); Monocytes % 6.8 %; Neutrophils # 5.57 10^3/uL (1.8-7.7); Neutrophils % 66.9 %; Nucleated Red Blood Cells % 0 %; Platelet Count 251 10^3/cmm (157-399); Red Blood Count 6.03 10^6/uL (3.85-5.65); Red Cell Distribution Width 14.1 % (12.1-15.1); White Blood Count 8.33 10^3/uL (3.29-11.43)
[2023-07-15 19:41] LABS: Alanine Aminotransferase 17 U/L (0-41); Albumin Level 4.2 g/dL (3.5-5.2); Alkaline Phosphatase 114 U/L (40-130); Anion Gap 12.7 (5-19); Aspartate Amino Transferase 28 U/L (0-40); Blood Urea Nitrogen 12 mg/dL (8-23); Calcium 9.5 mg/dL (8.5-10.5); Carbon Dioxide 33 mmol/L (22-29); Chloride 99 mmol/L (98-107); Globulin 4.3 g/dL (1.3-4.6); Glucose 112 mg/dL (65-115); NT Pro B Type Natriuretic Pept 314 pg/mL (0-125); Osmolality Calculated 293 mOsm/kg (285-295); Potassium 3.7 mmol/L (3.5-5.1); Sodium 141 mmol/L (136-145); Total Bilirubin 0.5 mg/dL (0.15-1.2); Total Protein 8.5 g/dL (6.6-8.7)
[2023-07-15 19:49] LABS: Influenza A by IFA negative (Negative); Influenza B by IFA negative (Negative)
[2023-07-15 19:51] LABS: SARS Covid-2 Antigen negative (Negative)
--- NOTE | 2023-07-15 19:54 | ED_ITS ---
HPI - SOB/Dyspnea 2 General: Chief Complaint: Shortness of Breath/Dyspnea Stated Complaint: low o2 Time Seen by Provider: 07/15/23 18:26 Source: patient Mode of arrival: ambulatory Limitations: no limitations History of Present Illness: HPI Narrative: 72-year-old male who is a longtime smoke r states that over the last 2 days he has had some increasing shortness of breath along with wheezing and a cough. Denies any fever but states he had some hypoxia at home when he checks his oxygen status states been running in the high 80s. States that his dyspnea is worse exertion he denies any chest pain. Associated symptoms: Deny abdominal pain, chest pain, fever(s), nausea or vomiting Review of Systems 2 Const: Denies: fever(s), chills, body aches or change in appetite Eyes: Denies: blurry vision or eye discomfort ENMT: Denies: throat pain or dental pain Card: Denies: chest pain Resp: Reports: dyspnea, non-productive cough and wheezing GI: Denies: abdominal pain, nausea, vomiting or diarrhea : Denies: dysuria Musc: Denies: neck pain or back pain Skin/Breast: Denies: rash Neuro: Denies: headache(s) PFSH ED 2 PFSH: Medical History (Updated 07/15/23 @ 20:22 by Sandi Martínez MD) Bronchitis History of malignant melanoma History of TIA (transient ischemic attack) History of nonmelanoma skin cancer New onset a-fib 07/19/20 AAA (abdominal aortic aneurysm) BPH (benign prostatic hyperplasia) Anxiety Adjustment disorder with depressed mood OCD (obsessive compulsive disorder) (~2013) PTSD (post-traumatic stress disorder) Hypercholesterolemia Hypertension Diverticulosis Surgical History S/P bilateral inguinal hernia repair Status post surgical removal of malignant neoplasm of skin History of colonoscopy (~2013) diverticulosis Family History (Updated 07/15/23 @ 20:22 by Sandi Martínez MD) Family/Other Cancer brother- colon cancer Hypertension brother Mother Cancer colon cancer Father Diabetes Other Bronchitis Denies family history of Anesthesia complication Bleeding disorder Social History Smoking and tobacco/nicotine status: former use of tobacco/nicotine Second hand smoke exposure: No Alcohol intake: never Substance/Drug Use: never Adopted: No Caregiver/support person: Yes Lives independently: Yes Household members: spouse Housing: House Marital status: service: Yes branch: [employer] Current occupational status: retired Current occupational exposures/hazards: No Pets and animals: No Sexually active: No Do you think of yourself as: Straight/Heterosexual Current gender identity: Male Meron/Lutheran: Gnosticism Special meron needs: No Agree to transfusion: No Physical Exam 2 Const: COMMON NORMALS: no acute distress, patient oriented x3 and healthy appearing HENMT: COMMON NORMALS: normocephalic and atraumatic HEAD & SCALP: n ormocephalic and atraumatic Neck/C-Spine: COMMON NORMALS: full ROM and supple Chest: COMMONS NORMALS: normal inspection of the chest Resp: COMMON NORMALS: normal respiratory effort, No retractions and No use of accessory muscles AUSCULTATION: wheezes Cardio: COMMON NORMALS: regular rate, regular rhythm and No murmurs present (Cardio) RATE: regular rate RHYTHM: regular rhythm GI: COMMON NORMALS: Normal to inspection, nondistended, normoactive bowel sounds present, Soft to palpation, non-tender and no masses PALPATION: Yes Soft to palpation Extremity: COMMON NORMALS: normal to inspection and full ROM Neuro: COMMON NORMALS: patient oriented x3, moves all extremities and no focal motor deficits Psych: COMMON NORMALS: mental status grossly normal, Normal thought process present and cooperative THOUGHT PROCESS: Normal thought process present Skin: COMMON NORMALS: no rashes or lesions noted and no wounds GENERAL SKIN EXAM: no rashes or lesions noted Course 2 Vital Signs: Vital signs: Vital Signs Temperature 97.6 F 07/15/23 17:45 Pulse Rate 85 07/15/23 20:22 Respiratory Rate 20 H 07/15/23 20:14 Blood Pressure 164/78 07/15/23 20:07 Pulse Oximetry 90 07/15/23 20:18 Oxygen Delivery Me thod Nasal Cannula 07/15/23 20:14 Oxygen Flow Rate 2 07/15/23 20:18 MDM - SOB/Dyspnea Medical Decision Making Patient presents here with shortness of breath likely has bronchitis likely has undiagnosed COPD has been a longtime smoker and wheezing here he is improved with breathing treatment he does qualify for 2 L of oxygen we will start him on home oxygen at 2 L we will prescribe him steroids he has albuterol at home he is to follow-up with his PCP and we will get him follow-up with pulmonology as well he understands agrees to plan. Medical Records I reviewed the patient's medical records. Lab Data I reviewed the patient's lab results. 07/15/23 19:01 07/15/23 19:01 Labs/Radiology: Radiology Impressions Chest X-Ray 07/15/23 17:54 IMPRESSION: 1. No acute cardiopulmonary abnormality. Laboratory Results WBC 8.33 10^3/uL (3.29-11.43) 07/15/23 19:01 RBC 6.03 10^6/uL (3.85-5.65) H 07/15/23 19:01 Hgb 17.10 g/dL (11.27-16.99) H 07/15/23 19:01 Hct 52.3 % (37-53) 07/15/23 19:01 MCV 86.7 fl (82-101) 07/15/23 19:01 MCH 28.4 pg (27-33) 07/15/23 19:01 MCHC 32.7 g/dL (30-55) 07/15/23 19:01 RDW 14.1 % (12.1-15.1) 07/15/23 19:01 Plt Count 251 10^3/cmm (157-399) 07/15/23 19:01 MPV 8.7 fL (7.4-10.4) 07/15/23 19:01 Neut % (Auto) 66.9 % 07/15/23 19:01 Lymph % (Auto) 24.4 % 07/15/23 19:01 [place] % (Auto) 6.8 % 07/15/23 19:01 Eos % (Auto) 1.2 % 07/15/23 19:01 Baso % (Auto) 0.5 % 07/15/23 19:01 Neut # (Auto) 5.57 10^3/uL (1.8-7.7) 07/15/23 19:01 Lymph # (Auto) 2.0 10^3/uL (0.8-4.8) 07/15/23 19:01 [place] # (Auto) 0.6 10^3/uL (0.2-0.9) 07/15/23 19:01 Eos # (Auto) 0.1 10^3/uL (0.0-0.8) 07/15/23 19:01 Baso # (Auto) 0.0 10^3/uL (0.0-0.1) 07/15/23 19:01 Nucleated RBC % (auto) 0 % 07/15/23 19:01 Nucleated RBCs # 0.0 /100WBC 07/15/23 19:01 Sodium 141 mmol/L (136-145) 07/15/23 19:01 Potassium 3.7 mmol/L (3.5-5.1) 07/15/23 19:01 Chloride 99 mmol/L (98-107) 07/15/23 19:01 Carbon Dioxide 33 mmol/L (22-29) H 07/15/23 19:01 Anion Gap 12.7 (5-19) 07/15/23 19:01 BUN 12 mg/dL (8-23) 07/15/23 19:01 Creatinine 0.8 mg/dL (0.7-1.2) 07/15/23 19:01 GFR Calculation Not Reportable 07/15/23 19:01 Glucose 112 mg/dL (65-115) 07/15/23 19:01 Calculated Osmolality 293 mOsm/kg (285-295) 07/15/23 19:01 Calcium 9.5 mg/dL (8.5-10.5) 07/15/23 19:01 Total Bilirubin 0.5 mg/dL (0.15-1.2) 07/15/23 19:01 AST 28 U/L (0-40) 07/15/23 19:01 ALT 17 U/L (0-41) 07/15/23 19:01 Alkaline Phosphatase 114 U/L (40-130) 07/15/23 19:01 NT-Pro-B Natriuret Pep 314 pg/mL (0-125) H 07/15/23 19:01 Total Protein 8.5 g/dL (6.6-8.7) 07/15/23 19:01 Albumin 4.2 g/dL (3.5-5.2) 07/15/23 19:01 Globulin 4.3 g/dL (1.3-4.6) 07/15/23 19:01 Influenza Type A Ag negative (Negative) 07/15/23 19:01 Influenza Type B Ag negative (Negative) 07/15/23 19:01 SARS-CoV-2 Ag (Rapid) negative (Negative) 07/15/23 19:01 All radiology interpretation(s) finalized by discharge Discharge Plan Discharge Patient Disposition: Home Clinical Impression: Bronchitis Condition: Stable Prescriptions: New prednisone 50 mg tablet 50 mg PO DAILY Qty: 5 0RF doxycycline hyclate 100 mg tablet 100 mg PO BID 7 Days Qty: 14 0RF No Action aspirin 81 mg tablet,delayed release (DR/EC) 81 mg PO DAILY@1200 pravastatin 80 mg tablet 40 mg PO DAILY@1200 potassium chloride 20 mEq tablet extended release 10 meq PO DAILY@1200 cilostazol 100 mg tablet 100 mg PO DAILY@1200 diltiazem HCl 120 mg capsule,extended release 24hr 120 mg PO DAILY Eliquis 5 mg tablet 5 mg PO BID cholecalciferol (vitamin D3) 50 mcg (2,000 unit) capsule 2,000 unit PO DAILY@1200 omega-3 fatty acids 500 mg capsule 500 mg PO DAILY@1200 tamsulosin 0.4 mg capsule 0.4 mg PO DAILY@1200 vitamin E 200 unit capsule 200 unit PO DAILY melatonin 3 mg capsule 3 mg PO DAILY mirtazapine 15 mg tablet 15 mg PO DAILY molnupiravir 200 mg capsule 800 mg PO Q12H 5 Days Qty: 40 0RF hydrochlorothiazide 25 mg tablet 12.5 mg PO DAILY Qty: 0 0RF Discharge Orders: Discharge ED (Routine); Ordered 07/15/23 Ordered By: Sandi Martínez Other Ambulatory Orders: DME: Oxygen (Order) Location: None Selected Ordered By: Sandi Martínez Referrals: Román Shipley MD [Physician] - 1-3 days Olaf Swain DO [Primary Care Provider] - Discharge Diet: Advance as tolerated Discharge Activity: Resume usual activity Patient Instructions: Acute Bronchitis (ED) Coding Level of Care Code ED [employer] Consult[employer] for Silvino Mariee
[2023-07-15] MEDS: methylPREDNISolone sod succ 125 mg/2 mL INJ IVP (20:03)
[2023-07-15 20:07] VITALS: BP 164/78; PULSE 70; RESP 16; O2SAT 91
[2023-07-15] MEDS: ipratropium-albuterol 3 mL Neb INHALATION (20:13)
[2023-07-15] MEDS: albuterol 2.5 mg/3 mL Neb INHALATION (20:13)
[2023-07-15 20:14] VITALS: PULSE 86; RESP 20; O2SAT 92
[2023-07-15 20:18] VITALS: O2SAT 88; O2SAT 90; O2SAT 92
[2023-07-15 20:22] VITALS: PULSE 85
[2023-07-15] MEDS: doxycycline 100 mg Tablet PO (20:31)
[2023-07-15 21:20] VITALS: BP 164/78; PULSE 85; RESP 20; TEMP 36.4; O2SAT 92
--- NOTE | 2023-07-16 04:18 | DCPLANNER ---
Message sent to Dr. Shipley's office for a follow up -COPD
== END 2023-07-15 21:22 | disposition home or self-care (01) ==
PROVIDERS: Emergency Provider Emergency Medicine; PCP Emergency Medicine Emergency Medical Services
DX: J40 Bronchitis, not specified as acute or chronic (principal); Z79.01 Long term (current) use of anticoagulants; Z79.82 Long term (current) use of aspirin; Z11.52 Encounter for screening for COVID-19; Z87.891 Personal history of nicotine dependence; Z86.73 Personal history of transient ischemic attack (TIA), and cerebral infarction without residual deficits; I10 Essential (primary) hypertension
CPT/HCPCS: 71045; 80053; 83880; 85025; 87426; 87804; 93005; 94640; 96374; 99285; J2930; J7613

== ENCOUNTER 2023-07-29 10:45 | Outpatient (RCR) | payer OTHER, SELFPAY | END 2023-08-26 23:59 | disposition home or self-care (01) | LOC: PULRHB 10:45 | PROVIDERS: PCP Emergency Medicine Emergency Medical Services; Visit Provider Emergency Medicine Emergency Medical Services | DX: J44.9 Chronic obstructive pulmonary disease, unspecified (principal) | CPT/HCPCS: 94625 ==

== ENCOUNTER → 2023-07-30 08:48 | Outpatient (BNVA) | payer OTHER, SELFPAY | PROVIDERS: PCP Emergency Medicine Emergency Medical Services; Visit Provider Nurse Practitioner Family | DX: I10 Essential (primary) hypertension (principal); Z98.890 Other specified postprocedural states; Z86.79 Personal history of other diseases of the circulatory system; I48.0 Paroxysmal atrial fibrillation; Z79.01 Long term (current) use of anticoagulants; Z79.82 Long term (current) use of aspirin; Z87.891 Personal history of nicotine dependence | CPT/HCPCS: 99214 ==

== ENCOUNTER → 2023-08-12 08:28 | Outpatient (BNVA) | payer OTHER, SELFPAY | PROVIDERS: PCP Emergency Medicine Emergency Medical Services; Visit Provider Internal Medicine Pulmonary Disease | DX: Z09 Encounter for follow-up examination after completed treatment for conditions other than malignant neoplasm (principal); R06.09 Other forms of dyspnea; Z12.2 Encounter for screening for malignant neoplasm of respiratory organs; Z99.81 Dependence on supplemental oxygen; Z87.891 Personal history of nicotine dependence | CPT/HCPCS: 99204 ==

== ENCOUNTER 2023-08-27 06:00 | Outpatient (RCR) | payer OTHER, SELFPAY | END 2023-09-26 23:59 | disposition home or self-care (01) | LOC: PULRHB 06:00 | PROVIDERS: PCP Emergency Medicine Emergency Medical Services; Visit Provider Emergency Medicine Emergency Medical Services | DX: J44.9 Chronic obstructive pulmonary disease, unspecified (principal); J84.9 Interstitial pulmonary disease, unspecified | CPT/HCPCS: 94625 ==

== ENCOUNTER 2023-09-07 07:38 | Outpatient (CLI) | payer OTHER, SELFPAY ==
[2023-09-07 08:12] VITALS: PULSE 56; RESP 18; O2SAT 97
[2023-09-07] MEDS: albuterol 2.5 mg/3 mL Neb INHALATION (08:12)
[2023-09-07 08:17] VITALS: PULSE 55
== END 2023-09-07 07:39 | disposition home or self-care (01) ==
LOC: RT 07:39
PROVIDERS: PCP Emergency Medicine Emergency Medical Services; Visit Provider Internal Medicine Pulmonary Disease
DX: R06.02 Shortness of breath (principal)
CPT/HCPCS: 94060; 94618; 94726; 94729; J7613

== ENCOUNTER 2023-09-22 15:00 | Outpatient (CLI) | payer OTHER, SELFPAY | END 2023-09-22 15:01 | disposition home or self-care (01) | LOC: SLEEP 09-28 12:13 | PROVIDERS: PCP Emergency Medicine Emergency Medical Services; Visit Provider Internal Medicine Pulmonary Disease | DX: G47.19 Other hypersomnia (principal) | CPT/HCPCS: 94762 ==

== ENCOUNTER 2023-09-27 06:00 | Outpatient (RCR) | payer OTHER, SELFPAY | END 2023-10-26 23:59 | disposition home or self-care (01) | LOC: PULRHB 06:00 | PROVIDERS: PCP Emergency Medicine Emergency Medical Services; Visit Provider Emergency Medicine Emergency Medical Services | DX: J44.9 Chronic obstructive pulmonary disease, unspecified (principal); J84.9 Interstitial pulmonary disease, unspecified; D49.1 Neoplasm of unspecified behavior of respiratory system; J43.0 Unilateral pulmonary emphysema [MacLeod's syndrome]; J43.1 Panlobular emphysema; J43.2 Centrilobular emphysema; J43.8 Other emphysema | CPT/HCPCS: 94625 ==

== ENCOUNTER → 2023-09-28 12:33 | Outpatient (BNVA) | payer OTHER, SELFPAY | PROVIDERS: PCP Emergency Medicine Emergency Medical Services; Visit Provider Internal Medicine Pulmonary Disease | DX: J43.9 Emphysema, unspecified (principal); G47.36 Sleep related hypoventilation in conditions classified elsewhere; R06.09 Other forms of dyspnea; Z12.2 Encounter for screening for malignant neoplasm of respiratory organs | CPT/HCPCS: 99214 ==

== ENCOUNTER 2023-10-13 14:44 | Outpatient (CLI) | payer OTHER, SELFPAY ==
--- NOTE | 2023-10-13 14:52 | CT_ITS ---
WS: [id number] LDCT LUNG CANCER SCREENING TECHNIQUE: Noncontrast CT of the chest with coronal and sagittal reformatted images. CLINICAL INFORMATION: HX OF NICOTINE DEPENDENCE COMPARISON: None. DLP: 133.59 mGy.cm DIvol: Mean CTDIvol: 1.50 (mGy),Mean CTDIvol: 1.40 (mGy) All CT scans at [facility] use at least one of these dose optimization techniques: automat ed exposure control; mA and/or kV adjustment per patient size (includes targeted exams where dose is matched to clinical indication); or iterative reconstruction. FINDINGS: Calcified granulomas. Subsegmental atelectasis LEFT lower lobe. No suspicious pulmonary par enchymal abnormalities. Mild chronic edematous changes. Cholelithiasis. Normal caliber thoracic aorta. Or calcification. Coronary calcification. No mediastin al or hilar lymphadenopathy. No axillary lymphadenopathy. Adrenal glands are normal. Partially visualized aortic endograft. Mild thoracic curve. Mild thoracic kyphosis. Anterior hypertrophic changes thoracic spine with ankylosis. IMPRESSION: CT/CT lung screening [id number] LUNG-RADS: 2-Benign Appearance or Behavior FOLLOW UP: 12 Month: Continue annual screening with LDCT
== END 2023-10-13 14:45 | disposition home or self-care (01) ==
LOC: RAD 14:44
PROVIDERS: PCP Emergency Medicine Emergency Medical Services; Visit Provider Internal Medicine Pulmonary Disease
DX: Z12.2 Encounter for screening for malignant neoplasm of respiratory organs (principal); Z87.891 Personal history of nicotine dependence
CPT/HCPCS: 71271

== ENCOUNTER → 2023-10-26 10:36 | Outpatient (BNVA) | payer OTHER, SELFPAY | PROVIDERS: PCP Emergency Medicine Emergency Medical Services; Visit Provider Nurse Practitioner Family | DX: L57.0 Actinic keratosis (principal); L82.1 Other seborrheic keratosis; D22.5 Melanocytic nevi of trunk; L57.8 Other skin changes due to chronic exposure to nonionizing radiation; Z86.006 Personal history of melanoma in-situ | CPT/HCPCS: 99214 ==

== ENCOUNTER 2023-10-27 06:00 | Outpatient (RCR) | payer OTHER, SELFPAY | END 2023-11-26 23:59 | disposition home or self-care (01) | LOC: PULRHB 06:00 | PROVIDERS: PCP Emergency Medicine Emergency Medical Services; Visit Provider Emergency Medicine Emergency Medical Services | DX: J44.9 Chronic obstructive pulmonary disease, unspecified (principal); J84.9 Interstitial pulmonary disease, unspecified | CPT/HCPCS: 94625 ==

== ENCOUNTER → 2023-12-02 08:49 | Outpatient (BNVA) | payer OTHER, SELFPAY | PROVIDERS: PCP Emergency Medicine Emergency Medical Services; Visit Provider Internal Medicine Pulmonary Disease | DX: J44.9 Chronic obstructive pulmonary disease, unspecified (principal); Z12.2 Encounter for screening for malignant neoplasm of respiratory organs; J43.9 Emphysema, unspecified; G47.36 Sleep related hypoventilation in conditions classified elsewhere; Z87.891 Personal history of nicotine dependence | CPT/HCPCS: 99214 ==

== ENCOUNTER 2023-12-13 12:00 | Outpatient (CLI) | payer OTHER, SELFPAY | END 2023-12-13 12:01 | disposition home or self-care (01) | LOC: SLEEP 12-14 09:50 | PROVIDERS: PCP Emergency Medicine Emergency Medical Services; Visit Provider Internal Medicine Pulmonary Disease | DX: G47.33 Obstructive sleep apnea (adult) (pediatric) (principal); J43.9 Emphysema, unspecified; G47.36 Sleep related hypoventilation in conditions classified elsewhere | CPT/HCPCS: G0399 ==

== ENCOUNTER 2023-12-29 14:42 | Outpatient (RCR) | payer SELFPAY | END 2024-01-26 23:59 | disposition home or self-care (01) | LOC: PULRHB 14:42 | PROVIDERS: PCP Emergency Medicine Emergency Medical Services; Visit Provider Emergency Medicine Emergency Medical Services | DX: J44.1 Chronic obstructive pulmonary disease with (acute) exacerbation (principal) ==

== ENCOUNTER → 2024-03-27 10:23 | Outpatient (BNVA) | payer OTHER, SELFPAY | PROVIDERS: PCP Family Medicine; Visit Provider Internal Medicine | DX: I48.91 Unspecified atrial fibrillation (principal); I10 Essential (primary) hypertension; I71.40 Abdominal aortic aneurysm, without rupture, unspecified; Z87.891 Personal history of nicotine dependence | CPT/HCPCS: 99214 ==

== ENCOUNTER 2024-04-04 20:00 | Outpatient (CLI) | payer OTHER, SELFPAY | END 2024-04-04 20:01 | disposition home or self-care (01) | LOC: SLEEP 22:25 | PROVIDERS: PCP Family Medicine; Visit Provider Emergency Medicine Emergency Medical Services | DX: G47.33 Obstructive sleep apnea (adult) (pediatric) (principal); Z99.89 Dependence on other enabling machines and devices | CPT/HCPCS: 95811 ==

== ENCOUNTER → 2024-04-11 09:09 | Outpatient (BNVA) | payer OTHER, SELFPAY | PROVIDERS: PCP Family Medicine; Visit Provider Nurse Practitioner Family | DX: L57.0 Actinic keratosis (principal); I78.8 Other diseases of capillaries; L82.1 Other seborrheic keratosis; D22.5 Melanocytic nevi of trunk; L81.4 Other melanin hyperpigmentation; Z86.006 Personal history of melanoma in-situ; Z85.828 Personal history of other malignant neoplasm of skin | CPT/HCPCS: 17000; 99213 ==

== ENCOUNTER → 2024-10-03 14:28 | Outpatient (BNVA) | payer OTHER, SELFPAY | PROVIDERS: PCP Family Medicine; Visit Provider Nurse Practitioner Family | DX: L82.1 Other seborrheic keratosis (principal); L81.4 Other melanin hyperpigmentation; Z86.006 Personal history of melanoma in-situ; Z08 Encounter for follow-up examination after completed treatment for malignant neoplasm; Z85.828 Personal history of other malignant neoplasm of skin; L57.0 Actinic keratosis; X32.XXXA Exposure to sunlight, initial encounter | CPT/HCPCS: 17000; 99213 ==

== ENCOUNTER → 2024-12-25 14:40 | Outpatient (BNVA) | payer OTHER, SELFPAY | PROVIDERS: PCP Family Medicine; Visit Provider Internal Medicine | DX: I10 Essential (primary) hypertension (principal); I48.91 Unspecified atrial fibrillation; I71.40 Abdominal aortic aneurysm, without rupture, unspecified | CPT/HCPCS: 99214 ==

== ENCOUNTER → 2025-04-12 14:19 | Outpatient (BNVA) | payer OTHER, SELFPAY | PROVIDERS: PCP Family Medicine; Visit Provider Nurse Practitioner Family | DX: L82.1 Other seborrheic keratosis (principal); L81.4 Other melanin hyperpigmentation; Z86.006 Personal history of melanoma in-situ; Z08 Encounter for follow-up examination after completed treatment for malignant neoplasm; Z85.828 Personal history of other malignant neoplasm of skin; L57.0 Actinic keratosis | CPT/HCPCS: 17000; 99213 ==